=== PATIENT | female | born 1940 | race Caucasian/White ===

== ENCOUNTER 2018-04-05 17:24 | Inpatient (IN) | payer MEDICARE, BC ==
[2018-04-05 18:16] LABS: Hemoglobin 14.2 g/dL (12.0-16.0); Mean Corpuscular HGB CONC 32.4 g/dL (32.0-36.0); Mean Corpuscular Hemoglobin 29.3 pg (27.0-31.0); Mean Corpuscular Volume 90.5 fL (78.0-98.0); RBC Distribution Width 13.9 % (11.5-14.5); Red Blood Cell (RBC) Count 4.84 mill/uL (4.20-5.40); White Blood Cell (WBC) Count 10.6 thou/uL (4.8-10.8)
[2018-04-05 18:35] LABS: ALT (SGPT) 30 U/L (8-55); AST (SGOT) 34 U/L (5-34); Albumin 4.3 g/dL (3.4-4.8); Alkaline Phosphatase 56 U/L (40-150); Anion Gap 18 mmol/L (10-20); BUN (Urea Nitrogen) 12 mg/dL (9.8-20.1); Bilirubin, Total 0.4 mg/dL (0.2-1.2); Calc. Creatinine Clearance 0 mL/min (70-130); Carbon Dioxide 25 mmol/L (23-31); Chloride 100 mmol/L (98-107); Estimated GFR-MDRD 54; Globulin 3.2 g/dL (2.4-3.5); Glucose 87 mg/dL (83-110); Potassium 3.9 mmol/L (3.5-5.1); Protein, Total 7.5 g/dL (6.0-8.3); Sodium 139 mmol/L (136-145)
[2018-04-05 18:36] LABS: #Basophils 0.1 thou/uL (0.0-0.2); #Eosinphils 0.3 thou/uL (0.0-0.7); #Lymphocytes 3.4 thou/uL (1.20-3.40); #Neutrophils 5.7 thou/uL (1.40-6.50); %Basophils 0.8 % (0.0-1.0); %Eosinophils 2.9 % (0.0-10.0); %Lymphocytes 32.2 % (21.0-51.0); %Monocytes 9.8 % (0.0-10.0); %Neutrophils 54.2 % (42.0-75.0); Large Platelets SLIGHT; MDiff Complete? YES; Mean Platelet Volume 11.7 fL (7.4-10.4); Platelet Count 134 thou/uL (130-400); Platelet Morphology Comment Appears Adequate
[2018-04-05 18:57] LABS: Prothrombin Time 13.7 SEC (12.0-14.7)
[2018-04-05 18:58] LABS: PTT 30.7 SEC (22.9-36.1)
--- NOTE | 2018-04-05 19:40 | CT ---
CT HEAD NONCONTRAST: 04/05/18 HISTORY: Fall. Head injury. FINDINGS: Small amount of hyperdense fluid is present within the left frontal subarachnoid sulci and at the lydia or of each frontal fossa. Minimal hyperdense fluid at the anterior interhemispheric fissure. Mild chronic ischemic small vessel disease and diffuse cortical atrophy. Nondisplaced sagittally orie nted fracture of right occipital bone extends to the base of the occipital condyle. IMPRESSION: Small amount of left frontal subarachnoid hemorrhage consistent with contrecoup injury related to fal ling and hitting the back of the head. A nondisplaced sagittally oriented occipital fracture is prese nt. Findings were called to Dr. Olsen in the Emergency Department at 1815 hours. Code CR POS: BST
--- NOTE | 2018-04-05 19:47 | CT ---
CT CERVICAL SPINE NONCONTRAST: 04/05/18 HISTORY: Fall. Neck injury. FINDINGS: Vertebral body heights are maintained. Prominent osteophytosis. Multilevel disc space narrowing and p artial disc calcification. Minimal degenerative spondylolisthesis at the C4-5 level. No acute fractur e or dislocation. Sagittally oriented right occipital bone fracture is partially visualized. It extends to the right oc cipital condyle. IMPRESSION: Degenerative changes of the cervical spine. No acute osseous abnormalities are demonstrated. POS: BST
--- NOTE | 2018-04-05 19:48 | RAD ---
CHEST ONE VIEW: 04/05/18 HISTORY: Fall. Chest injury FINDINGS: The cardiac silhouette is magnified by projection. Pulmonary vasculature is unremarkable. Mediastinum is midline with aortic calcification and dorsal column stimulator of the thoracic spine. No lobar co nsolidation or evidence of pneumothorax. IMPRESSION: 1. Atherosclerosis. 2. No active cardiopulmonary abnormalities are otherwise demonstrated. POS: BST
--- NOTE | 2018-04-05 19:50 | RAD ---
AP PELVIS ONE VIEW: 04/05/18 HISTORY: Fall. Pelvic injury. FINDINGS: Sacral ala are intact. Cortical remodeling of the lateral aspect of the right superior pubic ramus an d the left pubic ramus suggests an old healed right pelvic injury. Degenerative changes of each hip. No acute fracture or dislocation. Dorsal column stimulator pack overlies the left lower quadrant. IMPRESSION: Degenerative and old posttraumatic changes. No acute osseous abnormalities are demonstrated. POS: BST
[2018-04-05] MEDS ORDERED: Ondansetron PF 4 MG/2 ML Vial ONE ×3 (19:51→21:21)
[2018-04-05] MEDS ORDERED: Ondansetron PF 4 MG/2 ML Vial IVP PRN (20:25)
[2018-04-05] MEDS ORDERED: Dextrose 5% in Water 1,000 ML IV PRN (20:25)
[2018-04-05] MEDS ORDERED: Dextrose 50% Abboject 50 ML SYRINGE SLOW IVP PRN (20:25)
[2018-04-05] MEDS ORDERED: Acetaminophen 500 MG TAB PO SCH (20:30)
[2018-04-05] MEDS ORDERED: hydrALAZINE 20 MG/ML VIAL SLOW IVP PRN ×2 (20:32→21:33)
[2018-04-05] MEDS ORDERED: Acetaminophen 500 MG TAB ONE ×2 (20:37→20:43)
[2018-04-05] MEDS ORDERED: Lactated Ringer's 1,000 ML IV SCH (20:45)
[2018-04-05] MEDS ORDERED: HYDROmorphone 0.5 MG/0.5 ML SYRINGE ONE (21:22)
--- NOTE | 2018-04-05 22:24 | CT ---
CT LUMBAR SPINE NONCONTRAST: 04/05/18 HISTORY: Low back pain. Recent fall. Injury. FINDINGS: Vertebral body heights are maintained. There is prominent leftward convexed rotatory scoliotic curvat ure. AP alignment is within normal limits. Prominent osteophytosis throughout the vertebral bodies an d facets. Posterior disc bulges are most pronounced at the L2-3, L3-4, and L4-5 levels where there is also gas disc phenomenon. Central canal stenosis is most severe at the L4-5 level. Severe bilateral foraminal stenoses throughout the lumbar spine. Dorsal column stimulator partially visualized. There is calcification in the arterial structures. IMPRESSION: 1. Prominent degenerative changes of the lumbar spine. No acute osseous abnormalities. 2. Atherosclerosis. POS: BST
--- NOTE | 2018-04-05 22:26 | CT ---
CT THORACIC SPINE NONCONTRAST: 04/05/18 HISTORY: Fall. Back pain. FINDINGS: Vertebral body heights and alignment are maintained. Osteophytosis is present throughout the vertebra l bodies and facets. Mild rightward convexed curvature. Multilevel disc space narrowing and partial c alcification. No acute fracture or dislocation are apparent. Dorsal column stimulator is partially vi sualized. There is calcification in the arterial structures. IMPRESSION: Degenerative changes of the thoracic spine. No evidence of compression fracture. Atherosclerosis. POS: BST
--- NOTE | 2018-04-05 22:39 | HP ---
REFERRING PHYSICIAN: Oseas Olsen DO TRAUMA ATTENDING: Ruslan Murry MD PRIMARY CARE PHYSICIAN: Ronny Alas MD PAIN MANAGEMENT: . TRANSITIONAL CARE MANAGER: Wilfredo Upton MD POWDER CUTTING OPERATOR: Jhonathan Luque MD REASON FOR ADMISSION: Subarachnoid hemorrhage following a fall. HISTORY OF PRESENT ILLNESS: Ms. Jones is a 77-year-old female with past medical history of ITP, chronic pain, COPD, not on home oxygen, hypertension, depression, previous uterine cancer, who is asplenic, presented to the emergency department today after dancing at her assisted living facility, falling backwards, striking the occiput of her head. CT head demonstrates a contrecoup injury with frontal subarachnoid blood noted and an occipital fracture. The patient at this time is GCS of 15, was reported to be GCS of 14 initially. She does not remember the fall. She complains of a headache and generalized nausea. Headache is frontal in nature. She has no visual changes. She denies any chest pain, shortness of breath, abdominal pain, pelvic pain, rib pain, or any other symptoms aside from the headache and nausea. In the emergency department, the patient has been evaluated. Neurosurgery has seen the patient and placed recommendations. She is going to be admitted to the [facility]. We were called to admit the patient to the hospital. The patient now has a CT of C-spine that was negative. The chest x-ray that was ultimately negative. Pelvis x-ray that was negative. She is pending a CT T-spine and L-spine films. I have evaluated Ms. Jones at the bedside. Her son is also available. She is alert and oriented to person, place, time, and event. GCS is 15. She moves all extremities. She just complains of a headache and nausea. REVIEW OF SYSTEMS: Pertinent positives and negatives as per HPI, otherwise is regarded as negative. PAST MEDICAL HISTORY: 1. ITP. 2. Chronic pain. 3. COPD. 4. Hypertension. 5. Depression. 6. Uterine cancer, status post radical hysterectomy and radiation. PAST SURGICAL HISTORY: 1. L4-L5 nerve stimulator placed recently. 2. 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 3. Bilateral carpal tunnel releases. 4. Bowel resection x3 following appendectomy many years ago. 5. Radical hysterectomy. MEDICATIONS: They are not available at the bedside nor in the computer. I understand that she takes albuterol, Cymbalta and lisinopril. The remainder needs to be completed in the MAR. SOCIAL HISTORY: The patient is currently . 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 She quit smoking in June 2013 and former social drinker. No other illicit drug use. She currently lives in assisted living and has adult children in the area. ALLERGIES: TO MORPHINE CAUSING NAUSEA, VOMITING, AND HEADACHE. FAMILY HISTORY: Noncontributory in the 77-year-old female. PHYSICAL EXAMINATION: VITAL SIGNS: Current temperature is 98.8, blood pressure is 154/64, heart rate is 95. She is 94% on 2 L of oxygen via nasal cannula and breathing 20 times per minute. GENERAL: This is a 77-year-old female sitting at 30 degrees and in slight distress secondary to pain, but is nontoxic appearing. HEENT: Normocephalic, atraumatic. I see no wounds. Small hematoma possible to the occiput, no step-offs or deformities are noted. She has no hemotympanum bilaterally. No blood in the nares. No missing teeth. She has dry mucous membranes. Trachea is midline. No JVD. RESPIRATORY: Equal rise and fall bilateral. Breath sounds clear to auscultation in upper and lower bilaterally. CARDIOVASCULAR: Regular rate and rhythm. Does have a systolic murmur noted, grade 1-2 does not radiate on my assessment. She has no edema and strong pulses in four extremities. ABDOMEN: Soft and nontender. Pelvis is stable. MUSCULOSKELETAL: She is able to move her extremities. NEUROLOGIC: Alert and oriented to person, place, time, and event. GCS is 15. She moves all of her extremities well. Pupils are equal, round, and reactive to light. Denies any visual disturbances, but does report a headache. SKIN: Cobre, warm, and dry. PSYCHIATRIC: Normal mood and affect. DIAGNOSTIC DATA: Today, a CT head, noncontrast demonstrates a left frontal subarachnoid hemorrhage and a nondisplaced sagittally oriented occipital fracture. Chest x-ray is negative. Cervical spine CT is negative other than chronic changes. Pelvis x-ray is negative. An EKG that shows a sinus rhythm, but has artifact limiting interpretation secondary to nerve stimulator. LABORATORY DATA: From today, white blood cell count is 10.6, platelets are 134. Hemoglobin and hematocrit 14.2 and 43.8 respectively. PT is 13.7 seconds, INR is 1.0, APTT is 30.7, sodium is 139, potassium is 3.9, chloride is 100, CO2 is 25, anion gap is 18, BUN is 12, creatinine 1.0, glucose is 87 and lactate is 1.1. Total bilirubin 0.4. AST, ALT 34 and 30 respectively, alkaline phosphatase is 56. Initial troponins less than 0.01. Total protein 7.5. ASSESSMENT AND PLAN: 1. Mechanical fall leading to a nondisplaced occipital fracture. 2. Subarachnoid hemorrhage. 3. Acute traumatic pain. 4. History of chronic obstructive pulmonary disease. 5. Idiopathic thrombocytopenic purpura. 6. Hypertension. 7. Depression. PLAN: 1. We will admit the patient to the IMCU for close monitoring. 2. Neuro checks per Neurosurgery recommendation. 3. CT L-spine and T-spine are pending. Follow up on the same. 4. Repeat CT head at 5 o'clock. 5. Additional pain control now, Tylenol did not touch the pain, allergic to morphine, can't take NSAIDs, therefore, 0.2 mg Dilaudid given along with an additional 4 mg of Zofran now. 6. Blood pressure is slightly elevated, likely secondary to subarachnoid hemorrhage versus pain. If it remains elevated over 140 despite pain management, we will provide p.r.n. antihypertensives to goal of a systolic less than 140. 7. DuoNebs as needed every 4 hours. 8. Oxygen as needed to maintain SpO2 greater than 92%, not requiring home oxygen at home. 9. We will continue with Tylenol and additional tramadol for pain medicine, trying to limit narcotics if possible. 10. Diet will be n.p.o. except for medications, sips and chips tonight. 11. Activity is up to the bedside commode per Neurosurgery recommendations, head of bed at 30 degrees as long as L-spine, T-spine are negative. 12. Full code. 13. Access of peripheral IVs. 14. Prophylaxis will be famotidine and SCDs. 15. Disposition is [facility]. We will re-evaluate in the morning. I have coordinated care with the emergency department team, plan can be updated as needed. Job ID: [id number]
[2018-04-06] MEDS ORDERED: Famotidine 20 MG TAB ONE ×2 (00:01→10:26)
--- NOTE | 2018-04-06 02:10 | CON ---
DATE OF CONSULTATION: ATTENDING PHYSICIAN: Hubert Jeong MD HISTORY OF PRESENT ILLNESS: The patient is a 77-year-old female with a past medical history of ITP thrombocytopenia, hypertension, hyperlipidemia, COPD, who presented to the emergency department per EMS after a mechanical fall. The patient reports she was dancing in the assisted living when she lost her footing and fell backwards hitting the back of her head. She has little memory of this event. Since the event, she has had significant headache and several episodes of vomiting. She was evaluated with CT head on arrival to the emergency department and found to have a nondisplaced occipital fracture as well as a left frontal small area of traumatic subarachnoid hemorrhage consistent with contrecoup injury. C-spine CT was negative for acute changes. She also had a chest x-ray and a pelvis x-ray, which were also negative for any acute changes. I am visiting the patient at the bedside. She is awake and alert, oriented x4. GCS of 15. No focal neurologic deficits are present. She does have significant headache and nausea. Her platelet count is 134 and her coags are normal. PAST MEDICAL HISTORY: ITP thrombocytopenia, hypertension, hyperlipidemia, and COPD. PAST SURGICAL HISTORY: Appendectomy and bowel resection. SOCIAL HISTORY: The patient does not smoke, drink, or use any drugs. ALLERGIES: SHE IS ALLERGIC TO MORPHINE. REVIEW OF SYSTEMS: Per HPI. PHYSICAL EXAMINATION: VITAL SIGNS: BP is 125/45, respiration rate is 16. She is 94% on room air. Pulse is 88. She has temperature of 98.8. CONSTITUTIONAL: She is uncomfortable, but awake, alert, and oriented x4. GCS 15. HEAD: She has some soft tissue swelling over the occipital region. No laceration is present. EYES: PERRLA. Extraocular movements intact. ENT: Oral mucous is pink, intact, and moist. She has normal voice. NECK: Nontender to palpation. Free active range of motion. No meningismus or nuchal rigidity. RESPIRATORY: Symmetric chest expansion. No evidence of dyspnea. CARDIOVASCULAR: Regular rate and rhythm. MUSCULOSKELETAL: Free active range of motion of all extremities. No focal motor weakness or reflex asymmetry. BACK: She has pain with any movement of the back and tender diffusely over the thoracic-lumbar spine. NEURO: A and O x4. GCS 15. No focal neurologic deficits are appreciated. ASSESSMENT AND PLAN: This is a 77-year-old female status post mechanical fall, who was found on CT head to have a nondisplaced occipital fracture as well as small area of left frontal traumatic subarachnoid hemorrhage, consistent with contrecoup injury. She does have a history of ITP, but currently her platelets and coags are normal. She is neurologically intact, but is complaining of significant back pain, so I will add a noncontrast CT of the thoracic and lumbar spine and follow up these results. I have discussed her case with the Trauma Service and they will admit to the [facility] where patient can be monitored closely with frequent neuro checks. Head of the bed will be elevated to 30 degrees and we will continue to work on pain control, nausea, and mobilize and advance for diet appropriately. We will plan to repeat a.m. CT in the morning. I have discussed this plan with Dr. Jeong who is in agreement. Job ID: [id number]
[2018-04-06 04:33] LABS: Anion Gap 17 mmol/L (10-20); BUN (Urea Nitrogen) 9 mg/dL (9.8-20.1); Calc. Creatinine Clearance 0 mL/min (70-130); Calcium 10.2 mg/dL (7.8-10.44); Carbon Dioxide 24 mmol/L (23-31); Chloride 103 mmol/L (98-107); Estimated GFR-MDRD 62; Glucose 103 mg/dL (83-110); Magnesium 2.6 mg/dL (1.6-2.6); Potassium 4.6 mmol/L (3.5-5.1); Sodium 139 mmol/L (136-145)
[2018-04-06] MEDS ORDERED: Ondansetron PF 4 MG/2 ML Vial ONE ×4 (04:45→13:26)
[2018-04-06 04:59] LABS: #Basophils 0.1 thou/uL (0.0-0.2); #Lymphocytes 1.4 thou/uL (1.20-3.40); #Monocytes 0.6 thou/uL (0.11-0.59); #Neutrophils 10.4 thou/uL (1.40-6.50); %Basophils 0.6 % (0.0-1.0); %Eosinophils 0.4 % (0.0-10.0); %Lymphocytes 11.3 % (21.0-51.0); %Monocytes 4.5 % (0.0-10.0); %Neutrophils 83.3 % (42.0-75.0); Hemoglobin 15.1 g/dL (12.0-16.0); Mean Corpuscular HGB CONC 32.7 g/dL (32.0-36.0); Mean Corpuscular Hemoglobin 30.8 pg (27.0-31.0); Mean Corpuscular Volume 93.9 fL (78.0-98.0); Mean Platelet Volume 12.1 fL (7.4-10.4); Platelet Count 112 thou/uL (130-400); Platelet Morphology Comment Appears Decreased; RBC Distribution Width 13.7 % (11.5-14.5); Red Blood Cell (RBC) Count 4.92 mill/uL (4.20-5.40); White Blood Cell (WBC) Count 12.5 thou/uL (4.8-10.8)
[2018-04-06] MEDS ORDERED: Acetaminophen 1,000 MG in Premix Bag 1 BAG IVPB SCH (05:30)
--- NOTE | 2018-04-06 08:25 | CT ---
PRELIMINARY REPORT/[facility]/EMERGENTY AFTER-HOURS PROCEDURE CT Head Without Contrast EXAM DATE/TIME: 04/06/2018 4:56 AM CLINICAL HISTORY: 77 years old, female; Condition or disease; Other: L frontal tsah, occipital FX; Patient HX: Follow u p. S/P fall. L frontal tsah, occipital FX. F77 [place]. Patient reports pain to the back of her pain. Patient reports associated nausea. [employer] employee reports that patient wa s dancing and fell back onto her head. [employer] employee denies patient complaining of dizziness, lighthead edness, or other conditions prior to fall. TECHNIQUE: Axial computed tomography images of the head/brain without contrast. COMPARISON: CT Brain WO Con 04/05/2018 6:11 PM FINDINGS: Brain: Stable appearance of focal left frontotemporal extra-axial hemorrhage. Volume loss and chronic small vessel ischemic change. Midline shift: No midline shift. Ventricles: Normal. No ventriculomegaly. Bones/joints: Stable nondisplaced acute right occipital skull fracture. Sinuses: Normal as visualized. No acute sinusitis. Mastoid air cells: Normal as visualized. No mastoid effusion. Soft tissues: Normal. IMPRESSION: 1. Stable appearance of focal left frontotemporal extra-axial hemorrhage. 2. Stable nondisplaced acute right occipital skull fracture. Thank you for allowing us to participate in the care of your patient. Dictated and Authenticated by: Alfonso Alarcon MD 04/06/2018 5:28 AM Central Time ([place] & [place]) FINAL REPORT HEAD CT WITHOUT CONTRAST: Date: 04/06/18 COMPARISON: 04/05/18. HISTORY: Post-traumatic subarachnoid hemorrhage. Fracture. Follow-up exam. FINDINGS: This report is in agreement with the preliminary report by [place]. Redemonstration of intracranial hemo rrhage, unchanged. Stable nondisplaced right occipital calvarial fracture. POS: [facility]
[2018-04-06] MEDS: Scopolamine 1.5 mg/72 hour Patch TD SCH (09:57)
[2018-04-06] MEDS ORDERED: Lisinopril 10 MG TAB ONE (10:24)
[2018-04-06] MEDS ORDERED: Famotidine/PF 20 mg/2ml Vial ONE (10:24)
[2018-04-06] MEDS ORDERED: traMADol HCl 50 MG TAB ONE ×2 (10:24→12:10)
[2018-04-06] MEDS: Famotidine 20 MG TAB PO SCH ×3 (11:07→20:05)
--- NOTE | 2018-04-06 14:25 | CON ---
DATE OF CONSULTATION: 04/06/2018 HISTORY: The patient was seen and examined. I agree with Annel Tidwell's evaluation on 04/05/2018. The patient is a 77-year-old woman, who had a fall, striking the back of her right head. She is complaining of nausea, vomiting, and vertigo as well as headache. She is neurologically intact. CT of the head reveals a right occipital skull fracture extending into the skull base without displacement. She has trace traumatic left frontal subarachnoid hemorrhage, which is stable on followup CT. Imaging of the entire spine is negative for acute findings. IMPRESSION AND PLAN: The patient has a mild closed head injury with skull fracture and a trace amount of traumatic subarachnoid hemorrhage. This requires no intervention and no specific followup is required. I expect her to be symptomatic for several weeks and we discussed the nature of the symptoms. She may require inpatient management for the symptomatic treatment and this has been discussed with the patient, her daughter, and the trauma team. Job ID: [id number]
[2018-04-06] MEDS: Acetaminophen 1,000 MG in Premix Bag 1 BAG IVPB SCH ×3 (18:18→23:11)
[2018-04-06] MEDS: traMADol HCl 50 MG TAB PO PRN ×2 (18:25→23:12)
[2018-04-06 18:39] VITALS: BMI 29.0
[2018-04-06] MEDS: fentaNYL 50 mcg/hour Patch TD SCH (18:44)
--- NOTE | 2018-04-06 19:51 | PRG ---
DATE OF SERVICE: 04/06/2018 SUBJECTIVE: The patient remains in the emergency department due to bed availability in the [facility]. She did well overnight. She had a repeat head CT this morning, that showed stable subarachnoid hemorrhage and no changes to her occipital skull fracture. The patient's pain is controlled. We will start her on diet this morning. The patient was evaluated this morning at around [address] Angeles, and was then seen by Dr. Jeong. PHYSICAL EXAMINATION: VITAL SIGNS: Temperature 98.2, heart rate 80, blood pressure 146/71, respirations 20, oxygen saturations 98% on 1L via nasal cannula. GENERAL: The patient is resting comfortably in bed. She is awake, alert, and oriented x3. Jordan Coma Scale is 15. HEENT: Head shows contusion in the occiput, otherwise unremarkable. Eyes; extraocular motions intact. PERRLA bilaterally. Ears are atraumatic without discharge. Nose atraumatic without discharge. Oropharynx is clear. NECK: Nontender to the midline. The patient does have some right-sided paraspinous tenderness to palpation. LUNGS: Clear to auscultation with good inspiratory and expiratory effort. HEART: Regular rate and rhythm. ABDOMEN: Soft, flat, nontender with active bowel sounds. EXTREMITIES: Neurovascularly intact x4. LABORATORY FINDINGS: White blood cell count 12.5, hemoglobin 15.1, hematocrit 46.2, and platelets 112. Sodium 139, potassium 4.6, chloride 103, CO2 of 24, BUN 9, creatinine 0.88, glucose 103. Magnesium 2.6. Phosphorus 5.0. RADIOGRAPHIC REPORT: CT of the brain without contrast shows a stable appearance of a focal left frontotemporal extra-axial hemorrhage and stable nondisplaced acute right occipital skull fracture. ASSESSMENT AND PLAN: 1. Status post fall. 2. Subarachnoid hemorrhage. 3. Right occipital skull fracture. Plan will be to continue supportive care and pain management and we will have Case Management discuss placement with the patient. She does live independently at home, but may require a short stay in rehab or a custodial facility. From the neurosurgical standpoint, the patient is cleared for discharge. Job ID: [id number]
[2018-04-06] MEDS: Pregabalin 50 MG CAP PO SCH (20:06)
[2018-04-06] MEDS: Temazepam 15 MG CAP PO SCH (20:06)
[2018-04-06] MEDS: Calcium Carbonate + Vit D 1 TAB PO SCH (20:06)
[2018-04-06] MEDS: SUMAtriptan Succinate 50 MG TAB PO PRN (23:12)
[2018-04-07] MEDS: Ondansetron ODT 4 MG TAB PO PRN ×3 (04:34→16:41)
[2018-04-07] MEDS: traMADol HCl 50 MG TAB PO PRN ×3 (04:34→16:41)
[2018-04-07] MEDS: DULoxetine 60 MG CAP PO SCH (08:26)
[2018-04-07] MEDS: Pregabalin 50 MG CAP PO SCH ×3 (08:26→21:48)
[2018-04-07] MEDS: DULoxetine 30 MG CAP PO SCH (08:26)
[2018-04-07] MEDS: Potassium Chloride 20 MEQ TAB PO SCH (08:26)
[2018-04-07] MEDS: Lisinopril 20 MG TAB PO SCH (08:27)
[2018-04-07] MEDS: Lidocaine 5% Patch TD SCH (08:27)
[2018-04-07] MEDS: Ascorbic Acid 500 mg Chewable Tablet PO SCH (08:59)
[2018-04-07] MEDS: Folic Acid 1 MG TAB PO SCH (08:59)
[2018-04-07] MEDS: Calcium Carbonate + Vit D 1 TAB PO SCH ×3 (08:59→21:47)
[2018-04-07] MEDS: Famotidine 20 MG TAB PO SCH ×2 (08:59→21:47)
[2018-04-07] MEDS: Multivit, Therapeutic 1 TAB PO SCH (09:00)
[2018-04-07] MEDS: Torsemide 20 MG TAB PO SCH (09:00)
[2018-04-07] MEDS: SUMAtriptan Succinate 50 MG TAB PO PRN (09:44)
--- NOTE | 2018-04-07 14:53 | PRG ---
DATE OF SERVICE: 04/07/2018 SUBJECTIVE: The patient is hospital day #2, status post ground level fall in which she sustained a subarachnoid hemorrhage in a right occipital skull fracture. The patient is currently on the surgical floor. She did well overnight. Note, this morning when she attempted to work with physical therapy, her dizziness had increased once again making it difficult for her to work with them. She states that she has had some relief with the scopolamine patch, but it has not completely resolved her dizziness. The patient is tolerating a diet this morning and her pain is controlled. PHYSICAL EXAMINATION: VITAL SIGNS: Temperature is 97.7, heart rate 74, blood pressure 156/63, respirations 18, oxygen saturation is 98% on 2 L via nasal cannula. GENERAL: The patient is resting comfortably in bed. She states that ice pack to the side of her head is also helping with her headache. She is awake, conversant, appropriate. Alice Coma Scale is 14, -1 for eye opening. HEENT: Unchanged. LUNGS: Clear to auscultation with good inspiratory and expiratory effort. HEART: Regular rate and rhythm. ABDOMEN: Soft, flat, nontender with active bowel sounds.\ EXTREMITIES: Neurovascularly intact x4. LABORATORY DATA: There are no labs or radiographs to review this morning. ASSESSMENT: 1. Status post ground level fall. 2. Subarachnoid hemorrhage, resolving. 3. Right occipital skull fracture, stable. PLAN: Plan will be to continue supportive care and await placement decision. The patient had declined going to [facility], so we will explore other options. From a Trauma and Neurosurgical standpoint, the patient is stable for transfer to skilled facility or swing bed. Job ID: [id number]
[2018-04-07] MEDS: Temazepam 15 MG CAP PO SCH (21:49)
[2018-04-08] MEDS: Ondansetron ODT 4 MG TAB PO PRN ×3 (01:12→15:03)
[2018-04-08] MEDS: traMADol HCl 50 MG TAB PO PRN ×3 (01:12→15:03)
[2018-04-08] MEDS: Potassium Chloride 20 MEQ TAB PO SCH (08:27)
[2018-04-08] MEDS: Multivit, Therapeutic 1 TAB PO SCH (08:27)
[2018-04-08] MEDS: DULoxetine 60 MG CAP PO SCH (08:28)
[2018-04-08] MEDS: Lisinopril 20 MG TAB PO SCH (08:28)
[2018-04-08] MEDS: Ascorbic Acid 500 mg Chewable Tablet PO SCH (08:28)
[2018-04-08] MEDS: Calcium Carbonate + Vit D 1 TAB PO SCH ×3 (08:28→20:36)
[2018-04-08] MEDS: DULoxetine 30 MG CAP PO SCH (08:28)
[2018-04-08] MEDS: Famotidine 20 MG TAB PO SCH ×2 (08:28→20:36)
[2018-04-08] MEDS: Folic Acid 1 MG TAB PO SCH (08:29)
[2018-04-08] MEDS: Lidocaine 5% Patch TD SCH (08:29)
[2018-04-08] MEDS: Torsemide 20 MG TAB PO SCH (08:30)
[2018-04-08] MEDS: Pregabalin 50 MG CAP PO SCH ×3 (08:31→20:35)
[2018-04-08] MEDS ORDERED: Polyethylene Glycol 3350 17 GM Packet PO SCH (13:15)
--- NOTE | 2018-04-08 16:54 | PRG ---
DATE OF SERVICE: 04/08/2018 SUBJECTIVE: The patient remains on the surgical floor. She is hospital day 3, status post ground level fall when she sustained a subarachnoid hemorrhage and a right occipital skull fracture. Yesterday, the patient had some significant vertigo symptoms that overnight with combination of scopolamine, rest and time, have significantly improved. This morning, as a matter of fact, she is up and able to tolerate her breakfast and work with Physical and Occupational Therapy. OBJECTIVE: VITAL SIGNS: Temperature 98.1, heart rate 64, blood pressure 145/75, respirations 18, oxygen saturation 99% on room air. GENERAL: The patient is resting comfortably, sitting up in a chair at bedside, having breakfast. She is awake, alert, and oriented x3. Alice Coma Scale is 15. HEENT: Unchanged. LUNGS: Clear to auscultation with good inspiratory and expiratory effort. HEART: Regular rate and rhythm. ABDOMEN: Soft, flat, nontender with active bowel sounds. EXTREMITIES: Neurovascularly intact x4. Capillary refill is less than 3 seconds. LABORATORY DATA: There are no labs or radiographs for review this morning. ASSESSMENT: 1. Status post ground level fall. 2. Subarachnoid hemorrhage, resolving/stable. 3. Right occipital skull fracture, stable. PLAN: Plan will be to continue supportive care, physical and occupational therapy and await placement decision. The patient and her daughter discussed home with Home Health, if possible. Again, we will have the Case Management work with them to get her to the appropriate facility hopefully tomorrow. Job ID: [id number]
[2018-04-08] MEDS: Temazepam 15 MG CAP PO SCH (20:36)
[2018-04-09] MEDS: Torsemide 20 MG TAB PO SCH (08:24)
[2018-04-09] MEDS: Scopolamine 1.5 mg/72 hour Patch TD SCH (08:24)
[2018-04-09] MEDS: Lidocaine 5% Patch TD SCH (08:24)
[2018-04-09] MEDS: Polyethylene Glycol 3350 17 GM Packet PO SCH (08:24)
[2018-04-09] MEDS: Ascorbic Acid 500 mg Chewable Tablet PO SCH (08:25)
[2018-04-09] MEDS: DULoxetine 30 MG CAP PO SCH (08:25)
[2018-04-09] MEDS: Potassium Chloride 20 MEQ TAB PO SCH (08:25)
[2018-04-09] MEDS: Folic Acid 1 MG TAB PO SCH (08:26)
[2018-04-09] MEDS: Lisinopril 20 MG TAB PO SCH (08:26)
[2018-04-09] MEDS: DULoxetine 60 MG CAP PO SCH (08:26)
[2018-04-09] MEDS: Famotidine 20 MG TAB PO SCH ×2 (08:27→20:19)
[2018-04-09] MEDS: Calcium Carbonate + Vit D 1 TAB PO SCH ×3 (08:27→20:19)
[2018-04-09] MEDS: Multivit, Therapeutic 1 TAB PO SCH (08:27)
[2018-04-09] MEDS: Pregabalin 50 MG CAP PO SCH ×3 (08:31→20:20)
[2018-04-09] MEDS ORDERED: fentaNYL 50 mcg/hour Patch TD SCH (09:00)
[2018-04-09] MEDS: SUMAtriptan Succinate 50 MG TAB PO PRN (11:06)
[2018-04-09] MEDS: traMADol HCl 50 MG TAB PO PRN ×2 (11:06→17:24)
[2018-04-09] MEDS: fentaNYL 50 mcg/hour Patch TD SCH (17:31)
--- NOTE | 2018-04-09 18:16 | PRG ---
DATE OF SERVICE: 04/09/2018 SUBJECTIVE: The patient was seen this a.m., sitting up in bed. She is status post a fall from standing with occipital fracture and subarachnoid hemorrhage. No signs of vertigo. The patient denies any nausea or dizziness after the scopolamine patch was started 2 days ago. She was eating breakfast this morning when we saw her and reported tolerating that well. Reports pain is well controlled. OBJECTIVE: VITAL SIGNS: Temperature is 97.3, pulse 73, respirations 18, oxygen saturation is 94% on room air, and blood pressure 122/68. GENERAL: The patient is sitting up in bed. Appears comfortable. No acute signs of distress. NEUROLOGIC: GCS is 15. Alert and oriented x3, which is her baseline, gross motor and sensation intact. PULMONARY: No signs of acute distress, equal chest rise and fall. Lung singh clear bilaterally. HEART: Regular rate and rhythm. No murmurs, gallops, or rubs. GI: Abdomen is soft, nontender, nondistended. Positive bowel sounds. EXTREMITIES: Motor and sensation intact bilaterally. 2+ pulses in all extremities. No swelling noted. LABORATORY FINDINGS: There are no lab findings to report. DIAGNOSTIC FINDINGS: There are no diagnostic findings to report. ASSESSMENT: 1. Status post fall from standing. 2. Occipital fracture. 3. Subarachnoid hemorrhage. 4. Concussive symptoms. PLAN: We will continue supportive care and physical therapy. The patient agreed to be placed in a rehab facility today. We are pending approval at this time. We will continue medications and diet as previously prescribed. Job ID: [id number] [facility]
[2018-04-09] MEDS: Temazepam 15 MG CAP PO SCH (20:19)
[2018-04-10] MEDS: Lidocaine 5% Patch TD SCH (09:18)
[2018-04-10] MEDS: Calcium Carbonate + Vit D 1 TAB PO SCH ×3 (09:18→20:14)
[2018-04-10] MEDS: DULoxetine 60 MG CAP PO SCH (09:18)
[2018-04-10] MEDS: Polyethylene Glycol 3350 17 GM Packet PO SCH (09:18)
[2018-04-10] MEDS: DULoxetine 30 MG CAP PO SCH (09:19)
[2018-04-10] MEDS: Famotidine 20 MG TAB PO SCH ×2 (09:19→20:15)
[2018-04-10] MEDS: Ascorbic Acid 500 mg Chewable Tablet PO SCH (09:19)
[2018-04-10] MEDS: Torsemide 20 MG TAB PO SCH (09:19)
[2018-04-10] MEDS: Lisinopril 20 MG TAB PO SCH (09:20)
[2018-04-10] MEDS: Potassium Chloride 20 MEQ TAB PO SCH (09:20)
[2018-04-10] MEDS: Folic Acid 1 MG TAB PO SCH (09:20)
[2018-04-10] MEDS: Multivit, Therapeutic 1 TAB PO SCH (09:20)
[2018-04-10] MEDS: Pregabalin 50 MG CAP PO SCH ×3 (09:21→20:14)
[2018-04-10] MEDS ORDERED: Bisacodyl 10 MG SUPP PR PRN (10:35)
[2018-04-10] MEDS: traMADol HCl 50 MG TAB PO PRN ×2 (11:32→20:14)
--- NOTE | 2018-04-10 12:28 | PRG ---
DATE OF SERVICE: 04/10/2018 SUBJECTIVE: The patient is status post fall from standing with loss of consciousness and occipital fracture, subarachnoid hemorrhage with improving concussive symptoms. The patient was seen this morning with the Trauma Team, sitting up at the edge of bed, working with physical therapy. The patient reported her pain was well controlled and she was tolerating her diet. Did request stool softeners and a suppository. Not having any difficulty urinating. Tolerating her regular diet. Has agreed to pursue inpatient rehab placement. She is working with Case Management. OBJECTIVE: VITAL SIGNS: Temperature 98.3, pulse 78, respirations 22, oxygen 97% on room air, blood pressure 126/62. GENERAL: The patient is sitting upright at the edge of bed with minimal assistance. Appears comfortable. No acute signs of distress. NEUROLOGIC: GCS is 15. Alert and oriented x3. Gross motor and sensation are intact. PULMONARY: No signs of acute distress, equal chest rise and fall, lung singh clear bilaterally. HEART: Regular rate and rhythm. No murmurs, gallops, or rubs. GI: Abdomen is soft, nontender, nondistended. Positive bowel sounds. EXTREMITIES: Motor and sensation are intact. 2+ pulses in all extremities. No swelling noted. LABORATORY STUDIES: There are no laboratory studies to report. DIAGNOSTIC STUDIES: There are no diagnostic studies to report. ASSESSMENT: 1. Status post fall from standing. 2. Occipital fracture. 3. Subarachnoid hemorrhage. 4. Concussive symptoms. PLAN: We will continue to give the patient supportive care and physical therapy. The patient has agreed to be placed in a rehab facility. manager lsw is working with the patient to have the patient place. We are pending approval at this time. We will continue medications and diet as previously prescribed. In addition, we will start Colace and senna as well as order a p.r.n. suppository per patient request. The patient was seen and discussed with Dr. Mcgregor. Job ID: [id number]
[2018-04-10] MEDS: SUMAtriptan Succinate 50 MG TAB PO PRN (16:54)
[2018-04-10] MEDS: Ondansetron ODT 4 MG TAB PO PRN (20:14)
[2018-04-10] MEDS: Temazepam 15 MG CAP PO SCH (20:15)
[2018-04-10] MEDS: Senokot S 8.6-50 MG TAB PO SCH (20:15)
[2018-04-11] MEDS: traMADol HCl 50 MG TAB PO PRN ×3 (08:33→21:33)
[2018-04-11] MEDS: Pregabalin 50 MG CAP PO SCH ×3 (08:34→21:33)
[2018-04-11] MEDS: DULoxetine 60 MG CAP PO SCH (08:36)
[2018-04-11] MEDS: Lisinopril 20 MG TAB PO SCH (08:36)
[2018-04-11] MEDS: Polyethylene Glycol 3350 17 GM Packet PO SCH (08:36)
[2018-04-11] MEDS: Ascorbic Acid 500 mg Chewable Tablet PO SCH (08:36)
[2018-04-11] MEDS: Multivit, Therapeutic 1 TAB PO SCH (08:36)
[2018-04-11] MEDS: DULoxetine 30 MG CAP PO SCH (08:36)
[2018-04-11] MEDS: Potassium Chloride 20 MEQ TAB PO SCH (08:37)
[2018-04-11] MEDS: Torsemide 20 MG TAB PO SCH (08:37)
[2018-04-11] MEDS: Calcium Carbonate + Vit D 1 TAB PO SCH ×3 (08:37→21:34)
[2018-04-11] MEDS: Senokot S 8.6-50 MG TAB PO SCH ×2 (08:37→21:34)
[2018-04-11] MEDS: Folic Acid 1 MG TAB PO SCH (08:37)
[2018-04-11] MEDS: Lidocaine 5% Patch TD SCH (08:39)
[2018-04-11] MEDS ORDERED: Magnesium Citrate 300 ML BOT PO SCH (10:05)
--- NOTE | 2018-04-11 13:12 | PRG ---
DATE OF SERVICE: 04/11/2018 SUBJECTIVE: The patient was seen this morning, lying in bed. She appeared alert and well. Reported pain was well controlled, and she was tolerating her diet. Has not had a bowel movement since last . Requesting additional bowel regimen. Reports working well with physical therapy. Also, states concussive type symptoms have been improving. PHYSICAL EXAMINATION: VITAL SIGNS: Temperature 97.9, pulse 98, oxygen saturation 99% on room air, respirations 18, blood pressure 129/69. GENERAL: Alert, well-appearing, lying in bed, and easily awoken. NEURO: GCS 15. Alert and oriented x3. Gross motor and sensation intact. Pupils equal, round, reactive to light. PULMONARY: No signs of acute distress, equal chest rise and fall. Lung singh are clear bilaterally. HEART: Regular rate and rhythm. No murmurs, gallops, or rubs. GI: Abdomen is soft, nontender, nondistended. Positive bowel sounds. EXTREMITIES: Gross motor and sensation intact, 2+ pulses in all extremities, no swelling noted. LABORATORY FINDINGS: There are no lab findings to report. DIAGNOSTIC FINDINGS: There are no imaging findings to report. ASSESSMENT: 1. Status post fall from standing. 2. Occipital skull fracture. 3. Subarachnoid hemorrhage. 4. Concussive symptoms. 5. History of chronic pain, chronic obstructive pulmonary disease, hypertension, depression, uterine cancer. PLAN: We will continue to give the patient supportive care and physical therapy at this time. She has agreed to be placed in a rehab facility. Rehab and insurance have accepted the patient. She is waiting for a bed at her facility. She is ready for discharge. The patient was seen and examined as well as discussed with Dr. Mcgregor this morning on a.m. rounds. The patient will be given 1 bottle of magnesium citrate today due to constipation. Job ID: [id number] MTDD
[2018-04-11] MEDS: Ondansetron ODT 4 MG TAB PO PRN (13:27)
[2018-04-11] MEDS: SUMAtriptan Succinate 50 MG TAB PO PRN (13:27)
[2018-04-11] MEDS ORDERED: Calcium Carbonate 500 MG ChewTAB PO PRN (18:54)
[2018-04-11] MEDS: Temazepam 15 MG CAP PO SCH (21:33)
[2018-04-12] MEDS: SUMAtriptan Succinate 50 MG TAB PO PRN ×2 (01:13→15:31)
[2018-04-12] MEDS: traMADol HCl 50 MG TAB PO PRN ×3 (04:43→16:08)
[2018-04-12] MEDS: Lidocaine 5% Patch TD SCH (08:44)
[2018-04-12] MEDS: Scopolamine 1.5 mg/72 hour Patch TD SCH (08:45)
[2018-04-12] MEDS: Polyethylene Glycol 3350 17 GM Packet PO SCH (08:45)
[2018-04-12] MEDS: Lisinopril 20 MG TAB PO SCH (08:47)
[2018-04-12] MEDS: Ascorbic Acid 500 mg Chewable Tablet PO SCH (08:47)
[2018-04-12] MEDS: DULoxetine 30 MG CAP PO SCH (08:48)
[2018-04-12] MEDS: DULoxetine 60 MG CAP PO SCH (08:48)
[2018-04-12] MEDS: Senokot S 8.6-50 MG TAB PO SCH (08:48)
[2018-04-12] MEDS: Calcium Carbonate + Vit D 1 TAB PO SCH ×2 (08:48→14:10)
[2018-04-12] MEDS: Pregabalin 50 MG CAP PO SCH ×2 (08:49→14:11)
[2018-04-12] MEDS: Folic Acid 1 MG TAB PO SCH (08:49)
[2018-04-12] MEDS: Potassium Chloride 20 MEQ TAB PO SCH (08:49)
[2018-04-12] MEDS: Multivit, Therapeutic 1 TAB PO SCH (08:49)
[2018-04-12] MEDS: Torsemide 20 MG TAB PO SCH (09:53)
[2018-04-12] MEDS ORDERED: Acetaminophen 325 MG TAB PO PRN (10:17)
[2018-04-12 15:38] VITALS: BP 148/69; TEMP 97.3
[2018-04-12] MEDS: fentaNYL 50 mcg/hour Patch TD SCH (16:07)
--- NOTE | 2018-04-13 09:28 | DIS ---
DATE OF ADMISSION: 04/05/2018 DATE OF DISCHARGE: 04/12/2018 ADMITTING DIAGNOSES: 1. Occipital skull fracture. 2. Subarachnoid hemorrhage. 3. Persistent concussive symptoms. DISCHARGE DIAGNOSES: 1. Occipital skull fracture. 2. Subarachnoid hemorrhage. 3. Concussive symptoms. CONSULTING PHYSICIANS: Dr. Hubert Jeong, Neurosurgery. PROCEDURES: None. HOSPITAL COURSE: Ms. Jones presented to the emergency department, status post fall from standing while she was dancing. She did hit her head and reported a loss of consciousness. At that time, the emergency department completed a CT of the head, C-spine as well as the T and L spines. They also completed a chest x-ray and a pelvic x-ray. Imaging demonstrated an occipital skull fracture with a subarachnoid hemorrhage. The patient also was suffering from concussive symptoms, most specifically nausea and dizziness. She was admitted to the Trauma Service on April 06 for concussive symptoms and physical therapy and placement at an appropriate rehab facility. She had a mostly uncomplicated hospital course and was treated for her concussive symptoms. At the time of discharge, she was tolerating a regular diet. Pain was well controlled. She had a bowel movement and was urinating without difficulty. DISCHARGE DISPOSITION: Acute rehab. DISCHARGE CONDITION: Satisfactory. PHYSICAL EXAMINATION: VITAL SIGNS: Temperature 97.3, pulse 84, respirations 14, oxygen saturation 96% on room air, and blood pressure 148/69. GENERAL: Alert, well-appearing, lying in bed and easily awoken. NEURO: GCS is 15. Alert and oriented x3. Gross motor and sensation intact. Pupils are equal, round, and reactive to light. PULMONARY: No signs of acute distress. Equal chest rise and fall. Lung singh are clear bilaterally. HEART: Regular rate and rhythm. No murmurs, gallops, or rubs. GASTROINTESTINAL: Abdomen is soft, nontender, and nondistended. Positive bowel sounds. EXTREMITIES: Gross motor and sensation is intact. 2+ pulses in all extremities. No swelling noted. DISCHARGE INSTRUCTIONS: The patient was discharged to a rehab facility and instructed to follow up with the Trauma Clinic as needed and to call with any questions. She did not need any followup with Dr. Jeong and she was also instructed to see her primary care physician within 7 to 10 days. Her activity instructions were activity as tolerated on a regular diet with no restrictions. Therapy was requested through Occupational and Physical Therapy. She did not require any additional equipment. DISCHARGE MEDICATIONS: 1. Tylenol. 2. Dulcolax. 3. Tums. 4. Fentanyl patch. 5. DuoNeb. 6. Metoprolol. 7. MiraLAX. 8. Senokot. 9. Multivitamins. 10. Nexium. 11. Lidoderm patches. 12. Trulicity. 13. Vitamin C. 14. Rizatriptan. 15. Lyrica. 16. Temazepam. 17. Furosemide. 18. Calcium plus vitamin D. 19. Cymbalta. 20. Folic acid. 21. Lisinopril. 22. Potassium chloride. FOLLOWUP APPOINTMENTS: The patient should follow up with her primary care physician in 7 to 10 days. No followup needed to Trauma Clinic but was encouraged to call with any questions. No followup needed with Neurosurgery. Job ID: [id number]
--- NOTE | 2018-04-14 20:45 | EKG ---
Test Reason : Blood Pressure : / mmHG Vent. Rate : 175 BPM Atrial Rate : 187 BPM P-R Int : 000 ms QRS Dur : 150 ms QT Int : 272 ms P-R-T Axes : 000 029 034 degrees QTc Int : 464 ms Undetermined rhythm Non-specific intra-ventricular conduction block Lateral infarct , age undetermined Abnormal ECG Confirmed by CHAMP MARQUEZ D.O. ([id number]), editor sound JERALD OBREGON ([id number]) on 04/14/2018 8:45:10 PM Referred By: Confirmed By:CHAMP MARQUEZ D.O.
== END 2018-04-12 16:20 | DRG 83 ==
LOC: ERS 17:24 → ERHOLD 20:00 → SURG A 04-06 13:47
PROVIDERS: ADMIT Surgery; ATTEND Surgery
DX: S06.6X9A Traumatic subarachnoid hemorrhage with loss of consciousness of unspecified duration, initial encounter (principal); D69.3 Immune thrombocytopenic purpura; S02.119A Unspecified fracture of occiput, initial encounter for closed fracture; W19.XXXA Unspecified fall, initial encounter; Y92.099 Unspecified place in other non-institutional residence as the place of occurrence of the external cause; G89.29 Other chronic pain; J44.9 Chronic obstructive pulmonary disease, unspecified; I10 Essential (primary) hypertension; F32.9 Major depressive disorder, single episode, unspecified; Z85.42 Personal history of malignant neoplasm of other parts of uterus; Z87.891 Personal history of nicotine dependence; Z88.5 Allergy status to narcotic agent
CPT/HCPCS: 36415; 70450; 71045; 72125; 72128; 72131; 72170; 80048; 80053; 83605; 83735; 84100; 84484; 85025; 85610; 85730; 93005; 96361; 96365; 96375; 96376; G0390; J0131; J1170; J2405; J7620; Q0162; S0028

== ENCOUNTER 2018-06-21 12:04 | Outpatient (CLI) | payer MEDICARE, BC ==
--- NOTE | 2018-06-21 12:26 | RAD ---
FExam: Chest 2 view HISTORY:Dyspnea Comparison: 04/05/2018 FINDINGS: Lungs: Hyperinflated with interstitial prominence Cardiac silhouette: Normal size Pulmonary vessels: Mild central prominence Pleural Spaces: Clear Pneumothorax: None There is vascular calcification. Spinal stimulator overlies the mid thoracic spine. Osseous abnormalities: None IMPRESSION: COPD
== END 2018-06-21 12:05 | disposition home or self-care (01) ==
LOC: RAD 12:04
PROVIDERS: ATTEND Internal Medicine Critical Care Medicine
DX: R06.00 Dyspnea, unspecified (principal); J44.9 Chronic obstructive pulmonary disease, unspecified
CPT/HCPCS: 71046

== ENCOUNTER 2018-11-06 11:33 | Outpatient (CLI) | payer MEDICARE, BC ==
--- NOTE | 2018-12-04 15:07 | MMO ---
Bilateral MAMMO Bilat Screen [facility]. CLINICAL HISTORY: Patient is 78 years old and is seen for screening. The patient has no family history of breast cancer. The patient has a history of endometrial cancer in 2001. VIEWS: The views performed were: bilateral craniocaudal with tomosynthesis and bilateral mediolateral oblique with tomosynthesis. FILMS COMPARED: The present examination has been compared to prior imaging studies performed at [facility] on 10/30/2017, at [facility] on 08/05/2014, and at [facility] on 09/09/2015 and 09/09/2016. This study has been interpreted with the assistance of computer-aided detection. MAMMOGRAM FINDINGS: There are scattered fibroglandular densities. There are no suspicious masses, suspicious calcifications, or new areas of architectural distortion. IMPRESSION: THERE IS NO MAMMOGRAPHIC EVIDENCE OF MALIGNANCY. A ROUTINE FOLLOW-UP MAMMOGRAM IN 1 YEAR IS RECOMMENDED. THE RESULTS OF THIS EXAM WERE SENT TO THE PATIENT. ACR BI-RADS Category 1 - Negative MAMMOGRAPHY NOTE: 1. A negative mammogram report should not delay a biopsy if a dominant of clinically suspicious mass is present. 2. Approximately 10% to 15% of breast cancers are not detected by mammography. 3. Adenosis and dense breasts may obscure an underlying neoplasm. Reported by: EDIN BAKER MD Electonically Signed: [id number]
== END 2018-11-06 11:34 | disposition home or self-care (01) ==
LOC: BICMAMMO 11:33
PROVIDERS: ATTEND Internal Medicine
DX: Z12.31 Encounter for screening mammogram for malignant neoplasm of breast (principal); Z85.42 Personal history of malignant neoplasm of other parts of uterus
CPT/HCPCS: 77063; 77067

== ENCOUNTER 2019-04-26 17:36 | Inpatient (IN) | payer MEDICARE, BC ==
[~2019-04-26 17:36] MED LIST: Iopamidol-370 76% 500 ML 1 ML ONE
[2019-04-26 18:15] LABS: #Basophils 0.1 thou/uL (0.0-0.2); #Eosinphils 0.1 thou/uL (0.0-0.7); #Lymphocytes 4.8 thou/uL (1.20-3.40); #Monocytes 1.1 thou/uL (0.11-0.59); #Neutrophils 10.3 thou/uL (1.40-6.50); %Basophils 0.6 % (0.0-1.0); %Eosinophils 0.7 % (0.0-10.0); %Lymphocytes 29.3 % (21.0-51.0); %Monocytes 6.8 % (0.0-10.0); %Neutrophils 62.7 % (42.0-75.0); Hemoglobin 12.6 g/dL (12.0-16.0); Mean Corpuscular HGB CONC 32.6 g/dL (32.0-36.0); Mean Corpuscular Hemoglobin 28.8 pg (27.0-31.0); Mean Corpuscular Volume 88.5 fL (78.0-98.0); Mean Platelet Volume 11.2 fL (7.4-10.4); Platelet Count 299 thou/uL (130-400); RBC Distribution Width 15.4 % (11.5-14.5); Red Blood Cell (RBC) Count 4.38 mill/uL (4.20-5.40); White Blood Cell (WBC) Count 16.4 thou/uL (4.8-10.8)
[2019-04-26] MEDS ORDERED: Piperacillin/Tazobactam 4.5 GM VIAL ONE (18:32)
[2019-04-26 18:43] LABS: ALT (SGPT) 15 U/L (8-55); AST (SGOT) 28 U/L (5-34); Albumin 4.1 g/dL (3.4-4.8); Alkaline Phosphatase 54 U/L (40-110); Anion Gap 18 mmol/L (10-20); BUN (Urea Nitrogen) 16 mg/dL (9.8-20.1); Bilirubin, Total 0.5 mg/dL (0.2-1.2); Calc. Creatinine Clearance 0 mL/min (70-130); Calcium 9.5 mg/dL (7.8-10.44); Carbon Dioxide 27 mmol/L (23-31); Chloride 91 mmol/L (98-107); Estimated GFR-MDRD 37; Globulin 4.1 g/dL (2.4-3.5); Glucose 108 mg/dL (83-110); Potassium 4.2 mmol/L (3.5-5.1); Protein, Total 8.2 g/dL (6.0-8.3); Sodium 132 mmol/L (136-145)
[2019-04-26 18:50] LABS: Magnesium 1.5 mg/dL (1.6-2.6)
--- NOTE | 2019-04-26 19:13 | CT ---
CT Abdomen Pelvis W Con HISTORY: Abdominal pain, weakness, headache, colectomy and ileostomy on 02/17/2019 COMPARISON: 02/22/2019 and 04/16/2019. FINDINGS: The lung bases are clear. There are postop changes of colectomy, right-sided ileostomy and cholecystectomy and splenectomy. There is mild prominence of the intrahepatic biliary ductal tree which is stable. The pancreas, adrenal glands and kidneys are normal. No free air, free fluid or lymp hadenopathy seen in the abdomen or pelvis. The small bowel loops aren't abnormally dilated. There are vascular calcifications without evidence of aneurysmal dilatation of the abdominal aorta. There a re degenerative changes in the spine. IMPRESSION: No evidence of acute process.
[2019-04-26] MEDS ORDERED: Vancomycin HCl 1.75 GM in Sodium Chloride 0.9% 500 ML IVPB SCH (20:15)
--- NOTE | 2019-04-26 20:18 | RAD ---
XR Chest 1 View Portable HISTORY: Dehydration COMPARISON: 04/14/2019 FINDINGS: The heart size is normal. The aorta is tortuous. The lungs are well expanded without focal areas of consolidation, pneumothorax or pleural effusions. Dorsal stimulator leads are again noted IMPRESSION: No radiographic evidence of acute cardiopulmonary process.
[2019-04-26 20:43] LABS: Bacteria/HPF None Seen HPF (None Seen); Bilirubin Negative (Negative); Blood, Urine Negative (Negative); Clarity Clear (Clear); Glucose, Urine (Dipstick) Normal (Negative); Leukocyte 75 Leu/uL (Negative); Nitrite Negative (Negative); Protein, Urine (Dipstick) Negative (Neg-Trace); RBC/HPF 0-3 HPF (0-3); Renal Epithelial 0-3 HPF (None Seen); Squamous Epithelial 0-3 HPF (0-3); Urobilinogen Normal mg/dL (Less than 2); WBC/HPF 0-3 HPF (0-3)
[2019-04-26] MEDS ORDERED: Morphine 2 MG/ML SYRINGE ONE (21:36)
--- NOTE | 2019-04-26 23:15 | PDOC.EVN ---
Event Note - Event Note Event Note: [id number] HP
[2019-04-27] MEDS ORDERED: Acetaminophen 325 MG TAB PO PRN (01:39)
[2019-04-27] MEDS ORDERED: SUMAtriptan Succinate 50 MG TAB PO PRN (01:39)
--- NOTE | 2019-04-27 01:59 | HP ---
CHIEF COMPLAINT: Weakness and abdominal pain. HISTORY OF PRESENT ILLNESS: Ms. Jones is a 78-year-old female with significant surgical abdominal history, ileostomy, hyperlipidemia, hypertension, COPD, idiopathic thrombocytopenic purpura, among others, presents to the emergency room with weakness, abdominal pain since yesterday. The patient reports she was here several weeks ago for possible stroke, was in rehab, then went home Monday. The patient reported increased weakness since Monday with abdominal cramping that started yesterday. The patient has an ileostomy bag. Denies nausea, vomiting, or fever. Workup in the emergency room including imaging studies, no acute finding. Chest x-ray, no acute finding. Electrolytes; sodium was 132, magnesium is low at 1.5. The patient appears to be dehydrated. Creatinine is 1.3. WBC count is elevated at 16.4, no obvious source of infection. The patient is being admitted to the hospital for further management. PAST MEDICAL HISTORY: As mentioned above in the history of present illness. PAST SURGICAL HISTORY: 1. Cholecystectomy. 2. Hysterectomy. 3. Splenectomy. 4. Bowel resection. 5. Appendectomy. PAST PSYCHIATRIC HISTORY: Anxiety and depression. SOCIAL HISTORY: Denies alcohol use. Denies drug use. No smoking history. FAMILY HISTORY: Reviewed and noncontributory. ALLERGIES: ALLERGIC TO MORPHINE AND LATEX GLOVES. HOME MEDICATIONS: Please see home medication reconciliation form for updated medications. REVIEW OF SYSTEMS: Review of 14 systems negative except what is mentioned in history of present illness. PHYSICAL EXAMINATION: GENERAL: The patient is awake, alert, in mild distress. HEAD AND NECK: Normocephalic. Dry oral mucosa. Neck is supple. CHEST: Fair bilateral air entry. HEART: S1 and S2. Regular. ABDOMEN: Soft with ostomy bag. NEUROLOGIC: Awake, alert, oriented. No focal deficits. PSYCH: Unable to assess. EXTREMITIES: No clubbing or cyanosis. LABORATORY DATA: As mentioned above in history of present illness. Imaging studies as mentioned above in history of present illness. ASSESSMENT: 1. Dehydration. 2. Abdominal pain. Imaging studies, nondiagnostic. 3. Leukocytosis, no obvious source of infection. 4. Ileostomy status. 5. Hypertension. 6. Hyperlipidemia. 7. Chronic obstructive pulmonary disease. 8. Hyponatremia. 9. Hypomagnesemia. PLAN: 1. Admit. 2. IV fluid hydration. 3. Symptomatic management. 4. We will hold giving any further antibiotics tonight, reassess in a.m. 5. Monitor and replace electrolytes. 6. Monitor and replace electrolytes. 7. Reconcile home medications. 8. DVT prophylaxis. Early ambulation. 9. Expected length of stay 2 midnights. Job ID: [id number]
[2019-04-27 03:26] VITALS: BMI 22.8
[2019-04-27] MEDS ORDERED: Magnesium 2 GM/50 ML 2 GM in Premix Bag 1 BAG IVPB SCH (03:30)
--- NOTE | 2019-04-27 04:53 | PDOC.EVN ---
Event Note - Event Note Event Note: called by RN. patient more lethargic She did get morphine in ED afebrile following commands speech is slow moving all extremities will get CT brain, to follow results.
[2019-04-27] MEDS ORDERED: cefTRIAXone Sodium 1,000 MG in Syringe 0 ML IVPB SCH (05:00)
[2019-04-27] MEDS: cefTRIAXone\\ROCEPHIN 1 GM in Sodium Chloride 0.9% 100 ML IVPB SCH (05:50)
[2019-04-27] MEDS: Sodium Chloride 0.9% 1,000 ML IV SCH ×4 (05:50→21:13)
[2019-04-27 05:54] LABS: #Basophils 0.1 thou/uL (0.0-0.2); #Lymphocytes 1.7 thou/uL (1.20-3.40); #Monocytes 0.7 thou/uL (0.11-0.59); #Neutrophils 12.7 thou/uL (1.40-6.50); %Basophils 0.5 % (0.0-1.0); %Eosinophils 0.2 % (0.0-10.0); %Lymphocytes 11.4 % (21.0-51.0); %Monocytes 4.4 % (0.0-10.0); %Neutrophils 83.5 % (42.0-75.0); Hemoglobin 11.6 g/dL (12.0-16.0); Mean Corpuscular HGB CONC 33.3 g/dL (32.0-36.0); Mean Corpuscular Hemoglobin 29.5 pg (27.0-31.0); Mean Corpuscular Volume 88.6 fL (78.0-98.0); Platelet Count 282 thou/uL (130-400); RBC Distribution Width 15.4 % (11.5-14.5); Red Blood Cell (RBC) Count 3.93 mill/uL (4.20-5.40); White Blood Cell (WBC) Count 15.2 thou/uL (4.8-10.8)
[2019-04-27 06:13] LABS: ALT (SGPT) 12 U/L (8-55); AST (SGOT) 13 U/L (5-34); Albumin 3.7 g/dL (3.4-4.8); Alkaline Phosphatase 44 U/L (40-110); Anion Gap 13 mmol/L (10-20); BUN (Urea Nitrogen) 11 mg/dL (9.8-20.1); Bilirubin, Total 0.7 mg/dL (0.2-1.2); Calc. Creatinine Clearance 53 mL/min (70-130); Calcium 8.7 mg/dL (7.8-10.44); Carbon Dioxide 26 mmol/L (23-31); Chloride 101 mmol/L (98-107); Estimated GFR-MDRD 56; Globulin 3.2 g/dL (2.4-3.5); Glucose 106 mg/dL (83-110); Protein, Total 6.9 g/dL (6.0-8.3); Sodium 137 mmol/L (136-145)
[2019-04-27 06:16] LABS: Potassium 2.8 mmol/L (3.5-5.1)
[2019-04-27] MEDS ORDERED: Potassium Chloride 20 MEQ in Premix Bag 1 BAG IVPB SCH (06:45)
[2019-04-27] MEDS ORDERED: Potassium Chloride 20 MEQ TAB PO SCH (06:45)
[2019-04-27] MEDS: Famotidine/PF 20 mg/2ml Vial SLOW IVP SCH (07:55)
--- NOTE | 2019-04-27 07:55 | CT ---
HEAD CT WITHOUT CONTRAST: HISTORY: Headache. Confusion. Altered mental status. COMPARISON: 04/14/2019. FINDINGS: No parenchymal hemorrhage. No extraaxial hematoma. No midline shift. Basilar cisterns are patent. Brain volume, age appropriate. Cortical weiss-white differentiation is preserved. No hydrocephalus. There are chronic small-vessel ischemic changes of the white matter. Calvarium is intact. Adequate aeration of the sinuses and mastoid air cells. IMPRESSION: No acute intracranial process. POS: PPP
[2019-04-27 12:48] LABS: Potassium 4.9 mmol/L (3.5-5.1)
--- NOTE | 2019-04-27 16:37 | PDOC.HOSPP ---
- Subjective Encounter Date: 04/27/19 Encounter Time: 13:30 Subjective: d/w pt and family at length. wbcs sig'ly high, K being replaced. 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 pt's speech is dysarthric but can comprehend. concern about her worsening functional status and lytes being abnormal. also concerned about osteomy output being high. Requested the GI consult. - Objective Vital Signs & Weight: Vital Signs (12 hours) Temp Pulse Resp BP Pulse Ox 04/27/19 11:16 99.3 F 93 16 120/68 99 04/27/19 09:00 98 04/27/19 07:23 98.3 F 98 16 153/67 H 98 04/27/19 06:22 100 Weight Weight 154 lb 12.8 oz Result Diagrams: 04/27/19 05:43 04/27/19 12:07 Hospitalist ROS - Medication Medications: Active Medications Generic Name Dose Route Start Last Admin Trade Name Freq PRN Reason Stop Dose Admin Famotidine 20 mg 04/27/19 09:00 04/27/19 07:55 Pepcid SLOW IVP 20 mg DAILY MITCH Administration Ceftriaxone Sodium 1 gm/ 100 mls @ 200 mls/hr 04/27/19 05:00 04/27/19 05:50 Sodium Chloride IVPB 100 mls Q24HR MITCH Administration Sodium Chloride 1,000 mls @ 75 mls/hr 04/27/19 05:00 04/27/19 05:50 Normal Saline 0.9% IV 1,000 mls .[id number] MITCH Administration - Exam General Appearance: NAD, awake alert Eye: PERRL, anicteric sclera ENT: normocephalic atraumatic Neck: supple, symmetric Heart: RRR Respiratory: CTAB Gastrointestinal: soft, non-distended, normal bowel sounds Extremities: no cyanosis, clubbing Neurological: no focal deficits Psychiatric: normal affect Hosp A/P - Plan Dehydration [pt does takes 8 cups of water daily.?, per dtr]. Leukocytosis without source for infectoin - CT -abd and cXR non-revealing. --cw hydration - on diet --wbcs improving. -bl cx of 7th - NGSF - on CTX hx of abd sux -s/p osteomy - pt does takes 8 cups of water daily. - per famly request, requested GI consult. Hyponatremia Hypokalemia -being replaced w.. NS -K improved. restarted home meds. Lives in assisted living. May need more help.
[2019-04-27] MEDS ORDERED: Pregabalin 50 MG CAP PO SCH (21:00)
[2019-04-27] MEDS: Metoprolol Tartrate 25 MG TAB PO SCH (21:14)
[2019-04-27] MEDS: Atorvastatin Calcium 10 MG TAB PO SCH (21:14)
[2019-04-27] MEDS: Loperamide HCl 2 MG CAP PO SCH (21:14)
[2019-04-27] MEDS: Temazepam 15 MG CAP PO SCH (21:15)
[2019-04-27] MEDS ORDERED: Pregabalin 75 MG CAP PO SCH (21:30)
--- NOTE | 2019-04-28 00:29 | CON ---
DATE OF CONSULTATION: 04/27/2019 REASON FOR CONSULTATION: Hypokalemia secondary to high output ileostomy. CONSULTING PROVIDER: Vilma Knowles MD HISTORY OF PRESENT ILLNESS: The patient is a 78-year-old female with past medical history of hyperlipidemia, hypertension, COPD, ITP status post splenectomy, uterine cancer status post hysterectomy, anxiety, depression, recent subarachnoid hemorrhage and bowel resection with resultant ileostomy, presenting with hypokalemia felt to be secondary to high output ileostomy. The patient is a fairly poor historian, so the majority of the information was actually obtained through chart review and discussion with nursing staff. Per patient and per staff, the patient had recently undergone colonic resection with ileostomy placement in February [address] Bustillos. In the postoperative period, the patient was discharged to a rehab center and in the rehab center was noted to be emptying her back approximately every 2 to 3 hours. She was ultimately discharged to home, but could not adequately take care for self at home, so she was actually placed in assisted living facility for further management. However, she states that since discharge from the hospital after her surgery, she has had inadequate education regarding to the care of her ileostomy except until recently when a home health ostomy nurse was able to provide more education regarding her surgery. However, earlier this week, she started to exhibit increased lethargy, decreased appetite, weakness, and abdominal pain that progressively worsened over the next 24 to 48 hours. Upon evaluation in the [facility] ER, she was noted to have a significantly low magnesium and potassium and was ultimately admitted to the hospital for electrolyte replacement secondary to high output ileostomy. Per the patient, she states that she continues to empty her bag around every 2 to 3 hours and has been attempting to drink around 2 to 3 L of water a day. However, she does not recall the amount of fluid that she drains from a bag on each occasion. She also endorses increased midepigastric pain characterized as a pressure/cramping type sensation, is intermittent, will radiate to the periumbilical region and reaches a severity of 5/10. However, currently, she states that she is not experiencing this abdominal pain, but has noticed that this pain will increase whenever she has the passage of a more solid stool through her ileostomy. Otherwise, she states that she is doing well with no complaints of nausea, vomiting, fevers, chills, hematemesis, melena, hematochezia, dysphagia, odynophagia, or weight loss. REVIEW OF SYSTEMS: A 10-category review of systems was obtained with all responses negative except for the pertinent positives as listed in HPI. PAST MEDICAL HISTORY: As per HPI. PAST SURGICAL HISTORY: Cholecystectomy, hysterectomy, splenectomy, bowel resection status post ileostomy and appendectomy. FAMILY HISTORY: Denies any GI malignancies. SOCIAL HISTORY: Denies any tobacco, alcohol, or illicit drug use. OUTPATIENT MEDICATIONS: Reviewed. ALLERGIES: MORPHINE AND LATEX. PHYSICAL EXAMINATION: VITAL SIGNS: Temperature 99.3, pulse 93, blood pressure 120/68, respiratory rate 16, saturating 99% on room air. GENERAL: The patient was lying in bed, in no acute distress. Alert and oriented x4. Mild tangential thought processing. HEENT: Normocephalic, atraumatic. NECK: Supple. No JVD or scleral icterus noted. CARDIOVASCULAR: Regular rate and rhythm with no discernible murmurs, gallops, or rubs. RESPIRATORY: Clear to auscultation bilaterally with no discernible wheezes or rales. ABDOMEN: Normoactive bowel sounds. Soft, nondistended, mild tenderness to palpation in the left lower quadrant and suprapubic regions. Ostomy located in the right marquita-abdomen with no evidence of ostomy breakdown or purulence. EXTREMITIES: No cyanosis, clubbing, or edema. LABORATORY DATA: CBC with a white blood cell count of 15.2, hemoglobin 11.6, hematocrit 34.8, platelets 282. Chemistry with a sodium of 137, potassium 2.8, chloride 101, CO2 of 26, BUN 11, creatinine 0.96, glucose 106, AST 13, ALT 12, alkaline phosphatase 44, total bilirubin 0.7, lipase 16. IMAGING DATA: CT of the abdomen and pelvis was obtained on April 26, 2019, which showed postoperative changes consistent with colectomy and right-sided ostomy placement. Surgical change also associated with splenectomy. A mild prominence of the intrahepatic ducts was seen, but stable when compared to previous. There was no evidence of acute process. CT of the brain was also obtained on April 27, 2019, which was negative for obvious abnormality. ASSESSMENT AND PLAN: The patient is a 78-year-old female with past medical history of hyperlipidemia, hypertension, chronic obstructive pulmonary disease, ITP status post splenectomy, uterine cancer status post hysterectomy, anxiety, depression, recent subarachnoid hemorrhage and bowel resection status post ileostomy placement, presenting with hypokalemia, hypomagnesemia secondary to increased ostomy output. Increased ostomy output. It is difficult to discern from the patient how much she is actually having out of her ostomy over 24 hours and has been fairly ill prepared for the presence of ostomy after her surgery. Only until recently when she was evaluated by the home ostomy nurse that she has been able to adequately care for the ostomy itself in addition to increasing her fluid intake in order to prevent dehydration. It is unclear if she just has not been eating or drinking enough in order to maintain adequate nutrition with an ostomy or whether or not she actually does have a high output from her ostomy itself. At this time, it is also unclear if the patient is adequately maintaining ingestion of fluids to counteract the effects of fluid loss to the ostomy, which is typically greater than 500 mL per day. Current guidelines recommend consuming approximately 2.5 to 3 L daily to counteract losses from the ileostomy itself. In terms of her abdominal pain, it seems to be more related to harder stools through the ostomy itself and is most likely due to things like partial food/stool blockage of the ostomy site, which can occur because the ileal lumen is less than 1 inch in diameter. RECOMMENDATIONS: 1. Would start patient on a higher fiber diet with fiber supplementation with Metamucil as part of a soluble fiber supplementation to prevent clumping or drying of stool. 2. We will consider administration of loperamide 4 mg b.i.d. as needed for ostomy. 3. Recommend intake of a higher amount of fluids orally with electrolyte replacement (fluids like Pedialyte in the emergency could be considered). 4. Continue to monitor patient's chemistries for determination of adequate electrolyte replacement. 5. Would have nursing staff monitor patient in terms of how much she is emptying her bag with high output ileostomy characterized as greater than 1.5 L of fluid per day. We will continue to follow. Please call with any questions. Job ID: [id number]
[2019-04-28] MEDS: Sodium Chloride 0.9% 1,000 ML IV SCH ×3 (05:38→17:40)
[2019-04-28] MEDS: cefTRIAXone\\ROCEPHIN 1 GM in Sodium Chloride 0.9% 100 ML IVPB SCH (05:38)
[2019-04-28 06:27] LABS: #Basophils 0.1 thou/uL (0.0-0.2); #Eosinphils 0.2 thou/uL (0.0-0.7); #Lymphocytes 3.4 thou/uL (1.20-3.40); #Monocytes 1.3 thou/uL (0.11-0.59); #Neutrophils 6.8 thou/uL (1.40-6.50); %Basophils 1.2 % (0.0-1.0); %Eosinophils 1.7 % (0.0-10.0); %Lymphocytes 28.5 % (21.0-51.0); %Monocytes 10.7 % (0.0-10.0); %Neutrophils 57.9 % (42.0-75.0); Hemoglobin 10.4 g/dL (12.0-16.0); Mean Corpuscular HGB CONC 31.9 g/dL (32.0-36.0); Mean Corpuscular Volume 90.9 fL (78.0-98.0); Mean Platelet Volume 10.3 fL (7.4-10.4); Platelet Count 276 thou/uL (130-400); RBC Distribution Width 15.3 % (11.5-14.5); White Blood Cell (WBC) Count 11.8 thou/uL (4.8-10.8)
[2019-04-28] MEDS: Metoprolol Tartrate 25 MG TAB PO SCH ×2 (08:04→20:22)
[2019-04-28] MEDS: Torsemide 20 MG TAB PO SCH (08:04)
[2019-04-28] MEDS: Famotidine/PF 20 mg/2ml Vial SLOW IVP SCH (08:04)
[2019-04-28] MEDS: Loperamide HCl 2 MG CAP PO SCH ×2 (08:04→20:23)
[2019-04-28] MEDS: Metamucil PACK PO SCH (08:04)
[2019-04-28] MEDS: DULoxetine 60 MG CAP PO SCH (08:05)
[2019-04-28] MEDS ORDERED: Pregabalin 75 MG CAP PO SCH ×2 (09:00→09:15)
[2019-04-28 13:37] LABS: Anion Gap 11 mmol/L (10-20); BUN (Urea Nitrogen) 4 mg/dL (9.8-20.1); Calc. Creatinine Clearance 71 mL/min (70-130); Calcium 8.8 mg/dL (7.8-10.44); Carbon Dioxide 27 mmol/L (23-31); Chloride 106 mmol/L (98-107); Estimated GFR-MDRD 79; Glucose 104 mg/dL (83-110); Sodium 141 mmol/L (136-145)
--- NOTE | 2019-04-28 13:58 | PDOC.HOSPP ---
- Subjective Encounter Date: 04/28/19 Encounter Time: 09:55 Subjective: wants regular food. ok to start high fiber diet, talked to RN on monitoring ; GI note reviewed. - Objective Vital Signs & Weight: Vital Signs (12 hours) Temp Pulse Resp BP Pulse Ox 04/28/19 13:21 88 97 04/28/19 08:05 97 04/28/19 08:01 97.6 F 88 14 144/65 H 97 04/28/19 07:21 85 18 95 Weight Weight 154 lb 12.8 oz I&O: 04/27/19 04/28/19 04/29/19 06:59 06:59 06:59 Intake Total 3080 Output Total 1450 Balance 1630 Result Diagrams: 04/28/19 06:17 04/28/19 13:07 Hospitalist ROS - Medication Medications: Active Medications Generic Name Dose Route Start Last Admin Trade Name Freq PRN Reason Stop Dose Admin Acetaminophen 650 mg 04/27/19 01:39 04/28/19 10:16 Tylenol PO 650 mg Q6H PRN Administration Mild Pain (1-3)/ FEVER Albuterol/Ipratropium 3 ml 04/27/19 19:00 04/28/19 13:21 Duoneb NEB 3 ml [id number] MITCH Administration Atorvastatin Calcium 10 mg 04/27/19 21:00 04/27/19 21:14 Lipitor PO 10 mg HS MITCH Administration Duloxetine HCl 60 mg 04/28/19 09:00 04/28/19 08:05 Cymbalta PO 60 mg DAILY MITCH Administration Famotidine 20 mg 04/27/19 09:00 04/28/19 08:04 Pepcid SLOW IVP 20 mg DAILY MITCH Administration Ceftriaxone Sodium 1 gm/ 100 mls @ 200 mls/hr 04/27/19 05:00 04/28/19 05:38 Sodium Chloride IVPB 100 mls Q24HR MITCH Administration Sodium Chloride 1,000 mls @ 75 mls/hr 04/27/19 05:00 04/28/19 08:02 Normal Saline 0.9% IV Not Given .[id number] MITCH Loperamide HCl 2 mg 04/27/19 21:00 04/28/19 08:04 Imodium PO 2 mg BID MITCH Administration Metoprolol Tartrate 12.5 mg 04/27/19 21:00 04/28/19 08:04 Lopressor PO 12.5 mg BID MITCH Administration Pantoprazole Sodium 40 mg 04/28/19 09:00 04/28/19 08:05 Protonix PO 40 mg DAILY MITCH Administration Psyllium Hydrophilic Mucilloid 1 pk 04/28/19 09:00 04/28/19 08:04 Metamucil PO 1 pk DAILY MITCH Administration Temazepam 30 mg 04/27/19 21:00 04/27/19 21:15 Restoril PO 30 mg HS MITCH Administration Torsemide 20 mg 04/28/19 09:00 04/28/19 08:04 Demadex PO Not Given DAILY MITCH - Exam Eye: PERRL ENT: normocephalic atraumatic Neck: supple, symmetric, no JVD Heart: RRR Respiratory: CTAB Gastrointestinal: non-tender, non-distended, normal bowel sounds Extremities: no cyanosis Skin: normal turgor Neurological: no focal deficits, no new deficit Hosp A/P - Plan Dehydration [pt does takes 8 cups of water daily.?, per dtr]. Leukocytosis without source for infectoin - CT -abd and cXR non-revealing. --cw hydration - on diet --wbcs improving. -bl cx of 7th - NGSF - on CTX---> as tessy neg., swtich to PO augmentin hx of abd sux -s/p osteomy - pt does takes 8 cups of water daily. - per famly request, requested GI consult. -appreciate their help - d/w RN - will monitor ileostomy output Hyponatremia Hypokalemia -being replaced w.. NS -K improved.-------------> will check Mag level as well as K consistently being on the low side. -5th Mag 1.5 restarted home meds. Lives in assisted living. May need more help. dtr - is a PTherapist.
[2019-04-28] MEDS ORDERED: Potassium Citrate 10 MEQ TAB PO SCH (14:00)
[2019-04-28] MEDS: Pregabalin 75 MG CAP PO SCH ×2 (14:51→20:23)
[2019-04-28] MEDS: SUMAtriptan Succinate 50 MG TAB PO PRN (16:27)
--- NOTE | 2019-04-28 20:20 | PRG ---
DATE OF SERVICE: 04/28/2019 REASON FOR CONSULTATION: Hypokalemia secondary to suspected high-output ileostomy. SUBJECTIVE: The patient states that she was doing well today with no acute events or problems overnight. Per the patient and per nursing staff, she has had fairly minimal fluid output from her ostomy and per nursing staff had approximately 220 mL output over the last 6 to 12 hours. Otherwise, the patient states that she is doing well with no difficulty with eating meals. She currently denies any nausea, vomiting, fevers, chills, hematemesis, melena, hematochezia, dysphagia, odynophagia, or weight loss. OBJECTIVE: VITAL SIGNS: Temperature 97.6, pulse 77, blood pressure 144/65, respiratory rate 16, saturating 100% on room air. GENERAL: The patient was lying in bed, in no acute distress. Alert and oriented x4. CARDIOVASCULAR: Regular rate and rhythm. RESPIRATORY: Clear to auscultation bilaterally. ABDOMEN: Normoactive bowel sounds. Soft, nontender, nondistended. Ostomy located in the right hemiabdomen with no evidence of ostomy breakdown or purulence. Neri brown bilious fluid was seen in the bag. EXTREMITIES: No cyanosis, clubbing, or edema. LABORATORY DATA: CBC with a white blood cell count of 11.8, hemoglobin 10.4, hematocrit 32.7, platelets 276. Chemistry with a sodium of 141, potassium 3, chloride 106, CO2 of 27, BUN 4, creatinine 0.71, glucose 104. IMAGING DATA: No current GI imaging is available for review. ASSESSMENT AND PLAN: The patient is a 78-year-old female with past medical history of hyperlipidemia; hypertension; chronic obstructive pulmonary disease; immune thrombocytopenic purpura, status post splenectomy; uterine cancer, status post hysterectomy; anxiety; depression; recent subarachnoid hemorrhage; and bowel resection, status post ileostomy placement presenting with hypokalemia and hypomagnesemia suspected to be secondary to increased ostomy output. With measuring the patient's output during this hospitalization over the last 12 hours, she has had approximately 220 mL output from the ostomy itself. Given this volume of express fluid, this would be considered normal and does not currently meet criteria for high output ileostomy (greater than 1.5 L daily). At this time, she does remain hypokalemic on labs, but it is unclear if her magnesium still needs to be replaced as well in which case it would prevent further repletement of the potassium. Currently, she is doing well with no problems or complaints. RECOMMENDATIONS: 1. Would continue the patient on a higher fiber diet with fiber supplementation with Metamucil. 2. Continue administration of loperamide 4 mg b.i.d. 3. Continue high fluid intake with electrolyte replacement. 4. Continue to monitor the patient's chemistries including potassium and magnesium. 5. Continue in's and out's of her ostomy bag. We will continue to follow. Please call with any questions. Job ID: [id number]
[2019-04-28] MEDS: Atorvastatin Calcium 10 MG TAB PO SCH (20:22)
[2019-04-28] MEDS: Temazepam 15 MG CAP PO SCH (20:23)
[2019-04-28] MEDS: Amoxicillin/Potassium Clav 875 MG TAB PO SCH (20:23)
[2019-04-29] MEDS ORDERED: Lidocaine 2% Viscous Solution 10 ML, Aluminum & Magnesium Hydroxide 30 ML SSW SCH (01:30)
[2019-04-29] MEDS: Ondansetron PF 4 MG/2 ML Vial IVP PRN ×2 (03:49→19:48)
[2019-04-29] MEDS: Sodium Chloride 0.9% 1,000 ML IV SCH (05:31)
[2019-04-29 05:38] LABS: #Basophils 0.1 thou/uL (0.0-0.2); #Eosinphils 0.6 thou/uL (0.0-0.7); #Lymphocytes 2.2 thou/uL (1.20-3.40); #Monocytes 1.8 thou/uL (0.11-0.59); #Neutrophils 14.8 thou/uL (1.40-6.50); %Basophils 0.3 % (0.0-1.0); %Eosinophils 3.3 % (0.0-10.0); %Lymphocytes 11.4 % (21.0-51.0); Hemoglobin 10.8 g/dL (12.0-16.0); Mean Corpuscular Hemoglobin 28.9 pg (27.0-31.0); Mean Corpuscular Volume 90.2 fL (78.0-98.0); Mean Platelet Volume 11.2 fL (7.4-10.4); Platelet Count 280 thou/uL (130-400); RBC Distribution Width 15.6 % (11.5-14.5); Red Blood Cell (RBC) Count 3.74 mill/uL (4.20-5.40); White Blood Cell (WBC) Count 19.5 thou/uL (4.8-10.8)
[2019-04-29] MEDS: Metoprolol Tartrate 25 MG TAB PO SCH ×2 (08:32→21:22)
[2019-04-29] MEDS: Loperamide HCl 2 MG CAP PO SCH ×2 (08:33→21:21)
[2019-04-29] MEDS: SUMAtriptan Succinate 50 MG TAB PO PRN (08:33)
[2019-04-29] MEDS: DULoxetine 60 MG CAP PO SCH (08:33)
[2019-04-29] MEDS: Potassium Chloride 20 MEQ TAB PO SCH (08:33)
[2019-04-29] MEDS: Amoxicillin/Potassium Clav 875 MG TAB PO SCH ×2 (08:33→21:24)
[2019-04-29] MEDS: Metamucil PACK PO SCH (08:34)
[2019-04-29] MEDS: Pregabalin 75 MG CAP PO SCH ×3 (08:46→21:46)
[2019-04-29] MEDS: Torsemide 20 MG TAB PO SCH (08:47)
[2019-04-29 10:06] LABS: Anion Gap 20 mmol/L (10-20); BUN (Urea Nitrogen) 6 mg/dL (9.8-20.1); Calc. Creatinine Clearance 67 mL/min (70-130); Calcium 9.1 mg/dL (7.8-10.44); Carbon Dioxide 17 mmol/L (23-31); Chloride 107 mmol/L (98-107); Estimated GFR-MDRD 73; Glucose 108 mg/dL (83-110); Magnesium 1.8 mg/dL (1.6-2.6); Potassium 3.8 mmol/L (3.5-5.1); Sodium 140 mmol/L (136-145)
--- NOTE | 2019-04-29 10:21 | RAD ---
CHEST 1 VIEW: Date: 04/29/2019 Time: 0915 hours HISTORY: High WBC count. COMPARISON: 04/26/2019. FINDINGS: The heart size is normal. The aorta is tortuous. The lungs are well expanded without lobar consolidat ion, pneumothoraces, or pleural effusions. Dorsal stimulator leads are again noted. IMPRESSION: No radiographic evidence of acute cardiopulmonary process. POS: [facility]
--- NOTE | 2019-04-29 13:12 | PDOC.HOSPP ---
- Subjective Encounter Date: 04/29/19 Encounter Time: 11:30 Subjective: pt resting, she states that she has high output and documentation did not reflect. nutrition will be following with us. K and BP nl range. - Objective Vital Signs & Weight: Vital Signs (12 hours) Temp Pulse Resp BP Pulse Ox 04/29/19 12:53 83 16 99 04/29/19 08:30 100 04/29/19 07:29 97.4 F L 77 18 129/66 100 04/29/19 07:22 77 16 97 Weight Weight 154 lb 12.8 oz I&O: 04/28/19 04/29/19 04/30/19 06:59 06:59 06:59 Intake Total 3080 3420 Output Total 1450 2670 Balance 1630 750 Result Diagrams: 04/29/19 05:11 04/29/19 09:07 Hospitalist ROS - Medication Medications: Active Medications Generic Name Dose Route Start Last Admin Trade Name Freq PRN Reason Stop Dose Admin Acetaminophen 650 mg 04/27/19 01:39 04/28/19 10:16 Tylenol PO 650 mg Q6H PRN Administration Mild Pain (1-3)/ FEVER Albuterol/Ipratropium 3 ml 04/27/19 19:00 04/29/19 12:53 Duoneb NEB 3 ml [id number] MITCH Administration Amoxicillin/Clavulanate Potassium 875 mg 04/28/19 21:00 04/29/19 08:33 Augmentin PO 05/03/19 09:01 875 mg Q12HR MITCH Administration Atorvastatin Calcium 10 mg 04/27/19 21:00 04/28/19 20:22 Lipitor PO 10 mg HS MITCH Administration Duloxetine HCl 60 mg 04/28/19 09:00 04/29/19 08:33 Cymbalta PO 60 mg DAILY MITCH Administration Sodium Chloride 1,000 mls @ 75 mls/hr 04/27/19 05:00 04/29/19 05:31 Normal Saline 0.9% IV 1,000 mls .[id number] MITCH Administration Loperamide HCl 2 mg 04/27/19 21:00 04/29/19 08:33 Imodium PO 2 mg BID MITCH Administration Metoprolol Tartrate 12.5 mg 04/27/19 21:00 04/29/19 08:32 Lopressor PO 12.5 mg BID MITCH Administration Ondansetron HCl 4 mg 04/26/19 22:50 04/29/19 03:49 Zofran IVP 4 mg Q6H PRN Administration Nausea/Vomiting Pantoprazole Sodium 40 mg 04/28/19 09:00 04/29/19 08:33 Protonix PO 40 mg DAILY MITCH Administration Potassium Chloride 20 meq 04/29/19 09:00 04/29/19 08:33 K-Dur PO 05/01/19 09:01 20 meq DAILY MITCH Administration Pregabalin 75 mg 04/28/19 15:00 04/29/19 08:46 Lyrica PO Not Given TID MITCH Psyllium Hydrophilic Mucilloid 1 pk 04/28/19 09:00 04/29/19 08:34 Metamucil PO 1 pk DAILY MITCH Administration Sumatriptan Succinate 50 mg 04/27/19 14:44 04/29/19 08:33 Imitrex PO 50 mg Q4H PRN Administration Migraine Headache Temazepam 30 mg 04/27/19 21:00 04/28/19 20:23 Restoril PO 30 mg HS MITCH Administration Torsemide 20 mg 04/28/19 09:00 04/29/19 08:47 Demadex PO Not Given DAILY MITCH - Exam General Appearance: awake alert ENT: normocephalic atraumatic Neck: supple Heart: RRR, no murmur Respiratory: CTAB Gastrointestinal: soft, non-distended, normal bowel sounds Neurological: no focal deficits Hosp A/P - Plan Dehydration [pt does takes 8 cups of water daily.?, per dtr]. Leukocytosis without source for infectoin - CT -abd and cXR non-revealing. --cw hydration - on diet --wbcs improving. -bl cx of 7th - NGSF - on CTX---> as tessy neg., swtich to PO augmentin hx of abd sux -s/p osteomy - pt does takes 8 cups of water daily. - per famly request, requested GI consult. -appreciate their help - d/w RN - will monitor ileostomy output Hyponatremia Hypokalemia -being replaced w.. NS -K improved.-------------> will check Mag level as well as K consistently being on the low side. -5th Mag 1.5 restarted home meds. Lives in assisted living. May need more help. dtr - is a PTherapist. 10th - Leukocytosis --etiol unknow- cxr neg UA done 2 days prior - no acitive sn of infection -on augmentin -pending CRP -likley inflammatory process,a s clinically no sn of infection. - nutritional/carpenter helper maintenance c/s -per GI - she does not have high ostomy output. K is normalizing. transfer to assisted living when medically more stable PT consulted.
[2019-04-29] MEDS ORDERED: Iopamidol-370 76% 500 ML 1 ML ONE (15:55)
[2019-04-29] MEDS ORDERED: Famotidine 20 MG TAB PO SCH (18:45)
--- NOTE | 2019-04-29 19:16 | PRG ---
DATE OF SERVICE: 04/29/2019 SUBJECTIVE: The patient is lucid. She reports having some generalized abdominal pain, but not severe. There is no nausea or vomiting until she ate outside fast food last night. She had 1800 mL of ileostomy output over the restaurant shift supervisor and thus far 300 mL over the last 8 hours. There is no nausea or vomiting today. PHYSICAL EXAMINATION: VITAL SIGNS: Temperature is 97.4, blood pressure 129/66, and pulse of 77. GENERAL: She is alert and conversant, does not appear in distress. HEENT: Shows anicteric sclerae. Oropharynx clear and moist. CV: Shows normal S1, S2. Regular rate and rhythm. CHEST: Shows breath sounds. ABDOMEN: Soft. There is no distention. No tympany. She has active bowel sounds. Mildly tender. No guarding or rebound. Watery stool in the ileostomy bag. EXTREMITIES: Show no edema. LABORATORY DATA: WBC is 19.5, hemoglobin 10.8, and platelet count of 280. Sodium 140, potassium 3.8, chloride 107, CO2 of 17, creatinine is 0.6, BUN of 6, magnesium of 1.8, and calcium 9.1. ASSESSMENT: High ileostomy output. This is certainly a difficult situation of this 78-year-old female with multiple previous abdominal surgeries include small bowel resection after her splenectomy for adhesions in addition to most recent colectomy for ischemic colitis. The patient also has had previous cholecystectomy and ruptured appendicitis. At her age, adaption to ileostomy will be difficult and lengthy. In addition, I do not know how much of the previous small bowel resection she had. High ileostomy output from last night could be related to osmotic load from outside food. While technically bile acid binder does not work in the absence of the colon, she did have a response to colestipol following her surgery. Tincture of opium could reduce ileostomy output; however, I am reluctant to prescribe this given her recent fall with resultant subarachnoid hemorrhage. Abdominal pain, likely nonspecific. Her CT with contrast on 04/26/19 did not show any evidence of obstruction or any inflammatory process. RECOMMENDATIONS: 1. Dietary consult to educate patient on a high-fiber, high starch diet for bulking and lessen watery stool. 2. We will place the patient on a bile acid binder to see, cholestyramine 4 g b.i.d., and monitor. 3. We will obtain a CT angiogram to assess for any mesenteric insufficiency given her ongoing abdominal pain with recent history of severe ischemic colitis. 4. We will follow go. Job ID: [id number] [facility] CENTERAubrie
[2019-04-29] MEDS ORDERED: Ondansetron ODT 4 MG TAB PO PRN (19:45)
--- NOTE | 2019-04-29 21:12 | CT ---
CTA ABDOMEN AND PELVIS WITH BILATERAL LOWER EXTREMITY RUNOFF: INDICATIONS: Abdominal pain with history of ischemic colitis TECHNIQUE: Multiple CTA images were obtained of the abdomen and pelvis utilizing IV contrast and 3D reformatted imaging. Axial, coronal and sagittal reformatted images were constructed from the raw data. Comparisons are made with a CTA of the abdomen and pelvis dated April 16, 2019. FINDINGS: ABDOMEN: Lung bases: There is a calcified granuloma in the right middle lobe. There is emphysematous change in volving both lung bases. Liver: There is moderate intrahepatic and extra hepatic biliary ductal dilatation. Gallbladder is ayleen gically absent Gallbladder: Surgically absent Pancreas: Normal. Adrenal glands: Normal. Spleen: Surgically absent Kidneys and ureters: Normal. No hydronephrosis. Lymph nodes:No lymphadenopathy. Free fluid in abdomen:No free fluid is evident. PELVIS: Small and large bowel: There is severe dilatation of loops of small bowel within the abdomen with a s uggested transition zone in the right upper quadrant of the abdomen. This is near a small bowel to small bowel anastomosis. There is a stable right lower quadrant ileostomy. There is a near total melissa ctomy. There is a long Aiken's pouch within the lower pelvis. Appendix:Surgically absent Bladder: Normal. Rectal and perirectal soft tissues:Normal. Reproductive structures: Surgically absent Free fluid in pelvis: Small free fluid Lymphadenopathy pelvis: No lymphadenopathy is evident. Osseous structures: There is prominent levoscoliosis of lumbar spine. There is diffuse osteopenia. Th ere is healed fractures involving the right obturator ring. There is a dorsal column stimulator present. There is scattered degenerative and osteoarthritic changes. Soft tissues:Normal. VASCULATURE: Aorta: There are severe vascular calcifications involving the abdominal aorta without aneurysmal dila tation Celiac:There is stable moderate to severe narrowing involving the proximal celiac artery. SMA:Normal in caliber without evidence of stenosis or occlusion. Renal arteries:Normal in caliber without evidence of stenosis or occlusion. IRENE:Normal in caliber without evidence of stenosis or occlusion. Right common iliac artery: Normal in caliber without evidence of stenosis or occlusion. Right external iliac artery: Normal in caliber without evidence of stenosis or occlusion. Right internal iliac artery: Normal in caliber without evidence of stenosis or occlusion. Left common iliac artery: Normal in caliber without evidence of stenosis or occlusion. Left external iliac artery: Normal in caliber without evidence of stenosis or occlusion.. Left internal iliac artery: Normal in caliber without evidence of stenosis or occlusion. Additional findings: None. IMPRESSION: 1. Severe partial small bowel obstruction with a suggested transition zone in the right lower quadran t near a small bowel small bowel anastomotic site. 2. 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 3. Other chronic findings as above
[2019-04-29] MEDS: Atorvastatin Calcium 10 MG TAB PO SCH (21:21)
[2019-04-29] MEDS: traMADol HCl 50 MG TAB PO PRN (21:22)
[2019-04-29] MEDS: Temazepam 15 MG CAP PO SCH (21:22)
[2019-04-29] MEDS: Cholestyramine/Aspartame 4 gm Packet PO SCH (22:46)
[2019-04-29] MEDS: NS 0.9% w/ 20 MEQ KCL 1,000 ML/1,000 ML BAG IV SCH (23:02)
[2019-04-29] MEDS: Promethazine HCl 12.5 MG in Sodium Chloride 0.9% 50 ML IVPB PRN (23:02)
[2019-04-30] MEDS ORDERED: Ketorolac Tromethamine 30 MG/ML VIAL IVP SCH (00:15)
[2019-04-30] MEDS: NS 0.9% w/ 20 MEQ KCL 1,000 ML/1,000 ML BAG IV SCH ×3 (05:21→21:35)
[2019-04-30] MEDS: Promethazine HCl 12.5 MG in Sodium Chloride 0.9% 50 ML IVPB PRN (05:21)
[2019-04-30 05:50] LABS: #Basophils 0.1 thou/uL (0.0-0.2); #Eosinphils 0.9 thou/uL (0.0-0.7); #Lymphocytes 3.5 thou/uL (1.20-3.40); #Monocytes 1.4 thou/uL (0.11-0.59); #Neutrophils 12.6 thou/uL (1.40-6.50); %Basophils 0.3 % (0.0-1.0); %Eosinophils 4.8 % (0.0-10.0); %Lymphocytes 18.9 % (21.0-51.0); %Monocytes 7.5 % (0.0-10.0); %Neutrophils 68.5 % (42.0-75.0); Hemoglobin 12.7 g/dL (12.0-16.0); Mean Corpuscular HGB CONC 31.1 g/dL (32.0-36.0); Mean Corpuscular Hemoglobin 28.2 pg (27.0-31.0); Mean Corpuscular Volume 90.7 fL (78.0-98.0); Mean Platelet Volume 11.3 fL (7.4-10.4); Platelet Count 280 thou/uL (130-400); RBC Distribution Width 15.7 % (11.5-14.5); Red Blood Cell (RBC) Count 4.51 mill/uL (4.20-5.40); White Blood Cell (WBC) Count 18.4 thou/uL (4.8-10.8)
--- NOTE | 2019-04-30 08:45 | RAD ---
ABDOMEN 1 VIEW: HISTORY: Verify NG tube position. FINDINGS: Implantable device overlies the left lower abdomen, evidence for dorsal column stimulator, the tips o f which appear to overlie T8. Contrast media is noted within both right and left kidney collecting s ystems and urinary bladder from previous CT. No overt bowel obstruction. NG tube in satisfactory lo cation. IMPRESSION: Nasogastric tube in satisfactory location. Other findings as above. POS: [facility]
[2019-04-30 10:08] LABS: Anion Gap 15 mmol/L (10-20); BUN (Urea Nitrogen) 7 mg/dL (9.8-20.1); Calc. Creatinine Clearance 53 mL/min (70-130); Calcium 9.1 mg/dL (7.8-10.44); Carbon Dioxide 28 mmol/L (23-31); Chloride 102 mmol/L (98-107); Estimated GFR-MDRD 56; Glucose 95 mg/dL (83-110); Magnesium 1.9 mg/dL (1.6-2.6); Potassium 3.6 mmol/L (3.5-5.1); Sodium 141 mmol/L (136-145)
[2019-04-30] MEDS: DULoxetine 60 MG CAP PO SCH (10:26)
[2019-04-30] MEDS: Loperamide HCl 2 MG CAP PO SCH ×2 (10:27→19:53)
[2019-04-30] MEDS: Metoprolol Tartrate 25 MG TAB PO SCH ×2 (10:27→19:53)
[2019-04-30] MEDS: Famotidine 20 MG TAB PO SCH (10:27)
[2019-04-30] MEDS: Potassium Chloride 20 MEQ TAB PO SCH (10:28)
[2019-04-30] MEDS: Pregabalin 75 MG CAP PO SCH (10:28)
[2019-04-30] MEDS: Cholestyramine/Aspartame 4 gm Packet PO SCH ×2 (10:29→19:54)
[2019-04-30] MEDS: Metamucil PACK PO SCH (10:29)
[2019-04-30] MEDS: Torsemide 20 MG TAB PO SCH (10:29)
[2019-04-30] MEDS: Amoxicillin/Potassium Clav 875 MG TAB PO SCH (10:32)
[2019-04-30] MEDS: Piperacillin/Tazobactam 3.375 GM in Sodium Chloride 0.9% 100 ML IVPB SCH ×3 (11:21→21:39)
--- NOTE | 2019-04-30 12:14 | PDOC.HOSPP ---
- Subjective Encounter Date: 04/30/19 Encounter Time: 09:45 Subjective: SBO - on NGT, bilious drain. K is nl range. wbcs trending down; ice chips and NPO. - Objective Vital Signs & Weight: Vital Signs (12 hours) Temp Pulse Resp BP BP Pulse Ox 04/30/19 11:26 97.8 F 94 20 98/54 L 99 04/30/19 07:14 88 16 96 04/30/19 05:52 98.4 F 94 18 146/76 H 93 L 04/30/19 00:27 98.3 F 113 H 18 145/81 H 98 Weight Weight 154 lb 12.8 oz I&O: 04/29/19 04/30/19 05/01/19 06:59 06:59 06:59 Intake Total 3420 4355 Output Total 2679 9728 Balance 750 -1994 Result Diagrams: 04/30/19 05:30 04/30/19 09:37 Hospitalist ROS - Medication Medications: Active Medications Generic Name Dose Route Start Last Admin Trade Name Freq PRN Reason Stop Dose Admin Acetaminophen 650 mg 04/27/19 01:39 04/28/19 10:16 Tylenol PO 650 mg Q6H PRN Administration Mild Pain (1-3)/ FEVER Albuterol/Ipratropium 3 ml 04/27/19 19:00 04/30/19 07:14 Duoneb NEB 3 ml [id number] MITCH Administration Atorvastatin Calcium 10 mg 04/27/19 21:00 04/29/19 21:21 Lipitor PO 10 mg HS MITCH Administration Cholestyramine Resin 4 gm 04/29/19 22:00 04/30/19 10:29 Questran Light PO Not Given 1000,2200 MITCH Duloxetine HCl 60 mg 04/28/19 09:00 04/30/19 10:26 Cymbalta PO Not Given DAILY MITCH Famotidine 20 mg 04/30/19 09:00 04/30/19 10:27 Pepcid PO Not Given QAM MITCH Promethazine HCl 12.5 mg/ 50.5 mls @ 202 mls/hr 04/29/19 22:03 04/30/19 05:21 Sodium Chloride IVPB 50.5 mls Q6H PRN Administration Nausea Potassium Chloride/Sodium Chloride 1,000 ml in 1,000 mls @ 125 mls/hr 22:30 04/30/19 05:21 Ns 0.9% W/ 20 Meq Kcl IV 1,000 mls .Q8H MITCH Administration Piperacillin Sod/Tazobactam 100 mls @ 200 mls/hr 04/30/19 09:45 04/30/19 11: 21 Sod 3.375 gm/ Sodium Chloride IVPB 100 mls Q8H MITCH Administration Loperamide HCl 2 mg 04/27/19 21:00 04/30/19 10:27 Imodium PO Not Given BID [facility] Metoprolol Tartrate 12.5 mg 04/27/19 21:00 04/30/19 10:27 Lopressor PO Not Given BID [facility] Ondansetron HCl 4 mg 04/26/19 22:50 04/29/19 19:48 Zofran IVP 4 mg Q6H PRN Administration Nausea/Vomiting Pantoprazole Sodium 40 mg 04/28/19 09:00 04/30/19 10:27 Protonix PO Not Given DAILY [facility] Potassium Chloride 20 meq 04/29/19 09:00 04/30/19 10:28 K-Dur PO 05/01/19 09:01 Not Given DAILY [facility] Pregabalin 75 mg 04/28/19 15:00 04/30/19 10:28 Lyrica PO Not Given TID [facility] Psyllium Hydrophilic Mucilloid 1 pk 04/28/19 09:00 04/30/19 10:29 Metamucil PO Not Given DAILY [facility] Sumatriptan Succinate 50 mg 04/27/19 14:44 04/29/19 08:33 Imitrex PO 50 mg Q4H PRN Administration Migraine Headache Temazepam 30 mg 04/27/19 21:00 04/29/19 21:22 Restoril PO 30 mg HS MITCH Administration Torsemide 20 mg 04/28/19 09:00 04/30/19 10:29 Demadex PO Not Given DAILY [facility] Tramadol HCl 50 mg 04/27/19 16:32 04/29/19 21:22 Ultram PO 50 mg Q6H PRN Administration Moderate to Severe Pain (6-10) - Exam General Appearance: awake alert Eye: PERRL ENT - other findings: NGT draining bilious Heart: RRR Respiratory: CTAB Gastrointestinal: soft, non-distended, normal bowel sounds Skin: normal turgor Neurological: no focal deficits Hosp A/P - Plan Dehydration [pt does takes 8 cups of water daily.?, per dtr]. Leukocytosis without source for infectoin - CT -abd and cXR non-revealing. --cw hydration - on diet --wbcs improving. -bl cx of 7th - NGSF - on CTX---> as tessy neg., swtich to PO augmentin hx of abd sux -s/p osteomy - pt does takes 8 cups of water daily. - per famly request, requested GI consult. -appreciate their help - d/w RN - will monitor ileostomy output Hyponatremia Hypokalemia -being replaced w.. NS -K improved.-------------> will check Mag level as well as K consistently being on the low side. -5th Mag 1.5 restarted home meds. Lives in assisted living. May need more help. dtr - is a PTherapist. 10th - Leukocytosis --etiol unknow- cxr neg UA done 2 days prior - no acitive sn of infection -on augmentin -pending CRP -likley inflammatory process,a s clinically no sn of infection. - nutritional/assistant attorney general c/s -per GI - she does not have high ostomy output. K is normalizing. transfer to assisted living when medically more stable PT consulted. 11th Severe SBO -NGT in place and draining bilious; nPO and ice chips ok. -monitor lytes -appreciate the help from GI. leukocytosis -trending down. -escalated abx to cover for GNR as well until wbcs trends down -if temp, then we need to get blood culture and 7th blood cx neg. pt's all qs answered.
[2019-04-30] MEDS: Atorvastatin Calcium 10 MG TAB PO SCH (19:53)
[2019-04-30] MEDS: Temazepam 15 MG CAP PO SCH (19:54)
[2019-04-30] MEDS ORDERED: Fentanyl 100 MCG/2 ML VIAL SLOW IVP PRN ×2 (21:38→21:41)
[2019-04-30] MEDS ORDERED: diphenhydrAMINE 50 MG/ML VIAL IVP SCH (21:45)
--- NOTE | 2019-04-30 22:52 | CON ---
DATE OF CONSULTATION: 04/30/2019 REASON FOR CONSULTATION: Possible small bowel obstruction. HISTORY OF PRESENT ILLNESS: The patient is a 78-year-old chronically ill white female, well known to myself. On February 17, I performed an emergent exploratory laparotomy in treatment of sepsis with hemodynamic compromise. She was found to have ischemia and necrosis of the majority of her colon and I performed a subtotal colectomy with end ileostomy. She had a lengthy recuperation, was eventually discharged from the hospital on March 08. She has been back to the hospital and been admitted a couple of times since then for problems relating to high-output ileostomy with electrolyte derangement. She was most recently admitted for this on April 27 (three days ago). CT scan at the time of her admission then showed no acute intraabdominal abnormalities. Yesterday, she developed abdominal distention with nausea and vomiting. This is the first episode of this that she has experienced since her surgery (a little over two months ago). CT scan that was obtained related to CT angiography demonstrated substantial gastric distention and small bowel distention with what appeared to be some version of small bowel obstruction. Nasogastric tube was placed. She has resumed having ileostomy output today. She has been consuming a large volume of ice chips and of course has not vomited since her nasogastric tube was placed. She notes that she feels much better at this time (almost 24 hours after her NG tube was placed). Her medical records are difficult to traverse as she has two separate medical records and the records from the admission which I performed her surgery are not included with the records from her current admission. PAST MEDICAL HISTORY: Significant for chronic pain, depression, anxiety, COPD, diabetes. PAST SURGICAL HISTORY: Multiple operations include: 1. Open cholecystectomy. 2. Open splenectomy. 3. Hysterectomy for endometrial cancer. 4. Two laparotomies in 1999, at least one of which resulted in a small-bowel resection. 5. Spine stimulator placement. 6. Exploratory laparotomy with subtotal colectomy that I performed on February 17, 2019. MEDICATIONS: Numerous that include: 1. Lyrica. 2. Torsemide. 3. Potassium. 4. Nexium. 5. Wellbutrin. 6. Cymbalta. 7. Alprazolam. 8. Temazepam. 9. Trulicity. 10. Anoro inhaler. 11. She was formally on a fentanyl patch, but patient tells me she has been off this patch for at least the past two weeks. ALLERGIES: TO MORPHINE. PERSONAL AND SOCIAL HISTORY: She is with 3 children. One of her daughter is currently at bedside. I visited this patient and her daughter multiple times during the course of her hospitalization and subsequently postop in my office. The patient is currently in assisted living facility. She formerly smoked, but quit smoking five years ago. She has apparently stopped using the nicotine containing E-cigarette recently as well. REVIEW OF SYSTEMS: Otherwise unremarkable. FAMILY HISTORY: Noncontributory. PHYSICAL EXAMINATION: VITAL SIGNS: Temperature is 98.4, pulse 96, blood pressure is 124/69. GENERAL: She is a well-developed, pleasant, alert white female, resting in bed, in no acute distress. She is alert and oriented x3, and recognizes me immediately upon entering the room. HEAD, EYES, EARS, NOSE, AND THROAT: Unremarkable. NECK: Supple. LUNGS: Clear to auscultation. CARDIAC: Regular rate and rhythm without murmur. ABDOMEN: Soft, nontender, and nondistended. Her midline incision is nicely healed. She has a functioning ileostomy in the right lower quadrant. There is some dark stool output from this. Bowel sounds are present and entirely normoactive. There is no high-pitched or tympanitic bowel sounds. EXTREMITIES: Unremarkable. LABORATORY DATA: White blood cell count is elevated at 18.4, down from 19 yesterday. Hemoglobin is 12.7. She has a relatively unremarkable differential with no substantial left shift. Chemistries reveal normal electrolytes. BUN and creatinine are essentially normal. Glucose is normal. ASSESSMENT: The patient had an apparent small bowel obstruction yesterday based on her vomiting and CT scan. Nasogastric tube was placed and this appears to have resolved. It would be unusual for her to develop a bowel obstruction at this juncture out from her surgery related to this hospitalization. It is, however, certainly possible in light of the numerous operation that she has had that she could develop an obstruction related to adhesions at any time. For now, since this appears to have resolved, I would recommend getting a Gastrografin small-bowel follow-through in the morning. If contrast passes, as I anticipate it will, then her tube should be removed and a liquid diet initiated. I spent a long time explaining all this to the patient and her daughter. After concerns regarding the obstruction have resolved, then further efforts could be initiated to control the ostomy output in an attempt to minimize problems with her electrolyte imbalances. Job ID: [id number]
[2019-05-01] MEDS: NS 0.9% w/ 20 MEQ KCL 1,000 ML/1,000 ML BAG IV SCH ×2 (04:57→19:01)
[2019-05-01] MEDS: Piperacillin/Tazobactam 3.375 GM in Sodium Chloride 0.9% 100 ML IVPB SCH ×3 (04:57→21:18)
[2019-05-01 05:44] LABS: #Basophils 0.1 thou/uL (0.0-0.2); #Eosinphils 0.5 thou/uL (0.0-0.7); #Lymphocytes 3.3 thou/uL (1.20-3.40); #Monocytes 1.8 thou/uL (0.11-0.59); #Neutrophils 12.5 thou/uL (1.40-6.50); %Basophils 0.5 % (0.0-1.0); %Lymphocytes 17.9 % (21.0-51.0); %Monocytes 9.6 % (0.0-10.0); %Neutrophils 68.9 % (42.0-75.0); Mean Corpuscular HGB CONC 33.2 g/dL (32.0-36.0); Mean Corpuscular Hemoglobin 29.7 pg (27.0-31.0); Mean Corpuscular Volume 89.6 fL (78.0-98.0); Platelet Count 276 thou/uL (130-400); RBC Distribution Width 15.9 % (11.5-14.5); Red Blood Cell (RBC) Count 4.03 mill/uL (4.20-5.40); White Blood Cell (WBC) Count 18.2 thou/uL (4.8-10.8)
--- NOTE | 2019-05-01 07:02 | PDOC.GSPN ---
Surgery Progress Note: Subj - Subjective Patient reports: no new complaints, voiding w/o difficulty Narrative: Pt was stable overnight w/ no acute events and no febrile episodes. Pt had poor sleep quality due to NGT output of 1,700mL, which transitioned from bilious to darker brown color. Pt had 40mL dark brown ileostomy output overnight, and said she "feels ok." Pt is on 125mL NS w/ 20mEq KCl w/ ice chip privilege. Pt complained of bilat. knee pain of chronic origin, which required IV fentanyl. Pt has been walking, and used bedside commode x4 overnight. Pt remained NPO and is scheduled to have gastrografin SB follow through later this morning. Surgery Progress Note: Obj - Vital signs Vital signs: Vital Signs - Most Recent Temp Pulse Resp BP Pulse Ox 98.0 F 100 18 124/69 99 04/30/19 20:32 04/30/19 20:32 04/30/19 20:32 04/30/19 16:35 04/30/19 20:32 - Physical Exam General: no distress ENT: normal mucosa Cardiovascular: regular rate and rhythm Respiratory: clear to auscultation, normal respiratory effort Abdomen: soft, non tender, nondistended, positive bowel sounds Integumentary: no rash, other (normal turgor) Psychiatric: oriented to time, oriented to person, oriented to place Surgery Progress Note: Results - Labs Result Diagrams: 05/01/19 05:33 04/30/19 09:37 Lab results: Laboratory Results - last 24 hr Surgery Progress Note: A/P - Problem (1) Small bowel obstruction Current Visit: Yes Code(s): K56.609 - UNSP INTESTNL OBST, UNSP TO PARTIAL VERSUS COMPLETE OBST Status: Acute - Plan Plan: Pt is a 78yo CF w/ sig. PSH of cholecystectomy, appendectomy, splenectomy, and ex lap on 02/17/19 for sepsis which resulted in subtotal colectomy w/ ileostomy for ischemic bowel. Pt presented on 04/26/19 for complaints of weakness and abd. pain. Pt initially had high ileostomy output. Pt also had V yesterday, which resolved w/ NGT w high output requiring replacement of suction canister x2 overnight. Pt had minimal pain and no acute complaints. Pt's blood culture was ( -), and pt is finishing her current pip/tazo regimen. Pt had leukocytosis of unknown origin, but WBC has trended downward to 18.2H this morning. Pt had low K & Mg initially, but both have returned to normal values. Pt is stable, but had signs of orthostatic hypotension yesterday, continue monitoring pt's I&O to prevent deficit/excess. Pt had CT abd. 2d/a which revealed partial SBO at RLQ, and pt is scheduled to have gastrografin SB follow through today. Pt is currently NPO but may transition to clear liquid diet w/ NGT removal if gatrografin passes.
--- NOTE | 2019-05-01 07:54 | PRG ---
DATE OF SERVICE: 04/30/2019 SUBJECTIVE: Ms. Jones denies any abdominal pain at this point in time. She states one full NG decompression tube suctioned out and then she has about 150 mL in the next one. She reports that Dr. Bustillos came by today and plans on getting a small-bowel follow-through tomorrow. Her IV apparently is nonfunctioning and has been so since 1300 today. In talking with the nurse, they are trying to get someone from the ICU to come start an IV. I have explained to them that an IV needs to be started tonight and if they cannot get one, she may need a central line and she has came in with dehydration from perfuse highest T high ostomy output and now has an obstruction. NG tube is n.p.o. and IV antibiotics were ordered. Medications reviewed. OBJECTIVE: VITAL SIGNS: Temperature is 98.4, pulse 96, blood pressure 124/69 at 1635. GENERAL: She is sitting in bed comfortably. She has no distress. NG tube is in place. ABDOMEN: Soft, nontender. Bowel sounds are fairly quiescent. Gastric NG output is recorded 400 today, but it did seems that in addition that she has had a full canister out, and this was recorded at 4 L and I am not sure how that was measured. Her ostomy output at 1900 overnight, but it has only been 225 today. LABORATORY STUDIES: White count was 18.4 this morning, hemoglobin 12.7, platelet count 280. Sodium 141, potassium 3.6, BUN and creatinine are 7 and 0.96. ASSESSMENT: 1. High output ostomy. It is unclear if this is related to a developing partial obstruction and interestingly, there was no obstruction seen on a CT scan on 04/26/2019 when she first came in. A CT angio yesterday apparently showed no evidence of ischemia, but a high-grade partial obstruction distally. She has had previous small bowel surgery with Dr. Russell in the distant past and more recently had a subtotal colectomy for acute ischemic colon two admissions ago. 2. Dehydration. 3. Leukocytosis. RECOMMENDATIONS: 1. Continue IV antibiotics. Continue NG suction. Continue IV fluids. 2. We will check labs in the morning. 3. Agree with surgeries planned for management of the partial obstruction with small-bowel x-ray tomorrow. ADDENDUM: The nurse informs me that actually her IV is functioning until 5 o'clock and it just went bad and they are going to get that replaced. I think that she will get that done easily. Additionally, the patient asked me to call her daughter again. Dr. Oliva has already talked with her earlier today for quite a long period of time and Dr. Bustillos was able to visit with her. I have informed the patient that I really do not have anything to add further at this time and agree with the management plan for the NG tube decompression and small-bowel x-ray tomorrow and that Dr. Oliva will return tomorrow. Job ID: [id number]
[2019-05-01] MEDS: Torsemide 20 MG TAB PO SCH (09:20)
[2019-05-01] MEDS: DULoxetine 60 MG CAP PO SCH (09:20)
[2019-05-01] MEDS: Potassium Chloride 20 MEQ TAB PO SCH (09:20)
[2019-05-01] MEDS: Cholestyramine/Aspartame 4 gm Packet PO SCH ×2 (09:20→20:07)
[2019-05-01] MEDS: Metoprolol Tartrate 25 MG TAB PO SCH ×2 (09:20→20:06)
[2019-05-01] MEDS: Loperamide HCl 2 MG CAP PO SCH ×2 (09:20→20:06)
[2019-05-01 09:49] LABS: Anion Gap 18 mmol/L (10-20); BUN (Urea Nitrogen) 9 mg/dL (9.8-20.1); Calc. Creatinine Clearance 58 mL/min (70-130); Calcium 9.6 mg/dL (7.8-10.44); Carbon Dioxide 24 mmol/L (23-31); Chloride 106 mmol/L (98-107); Estimated GFR-MDRD 63; Glucose 88 mg/dL (83-110); Magnesium 1.9 mg/dL (1.6-2.6); Sodium 145 mmol/L (136-145)
--- NOTE | 2019-05-01 13:21 | RAD ---
EXAM: Small bowel follow-through HISTORY: Small bowel obstruction COMPARISON: CT abdomen/pelvis 04/29/2019 FINDINGS: A Gastrografin small bowel follow-through was performed. Surgical clips are seen throughout the abdomen. The small bowel loops are normal in caliber without distention. Contrast passes through the small bowel loops to the colon by 3 hours. A spinal stimulation device is partially visualized. IMPRESSION: No evidence of complete bowel obstruction
--- NOTE | 2019-05-01 13:45 | PDOC.HOSPP ---
- Subjective Encounter Date: 05/01/19 Encounter Time: 11:15 Subjective: NGT put out 500ml of dark brown fluid, y'day was bilious, ileostomy around 275m; / K down. pt has no acute c/o; just completed gastrograffin study. - Objective Vital Signs & Weight: Vital Signs (12 hours) Temp Pulse Resp BP Pulse Ox 05/01/19 08:00 95 05/01/19 07:51 98.1 F 106 H 20 121/77 95 Weight Weight 154 lb 12.8 oz I&O: 04/30/19 05/01/19 05/02/19 06:59 06:59 06:59 Intake Total 4355 1225 Output Total 6335 665 Balance -1994 560 Result Diagrams: 05/01/19 05:33 05/01/19 09:03 Hospitalist ROS - Medication Medications: Active Medications Generic Name Dose Route Start Last Admin Trade Name Freq PRN Reason Stop Dose Admin Acetaminophen 650 mg 04/27/19 01:39 04/28/19 10:16 Tylenol PO 650 mg Q6H PRN Administration Mild Pain (1-3)/ FEVER Albuterol/Ipratropium 3 ml 04/27/19 19:00 05/01/19 13:30 Duoneb NEB Not Given [id number] [facility] Atorvastatin Calcium 10 mg 04/27/19 21:00 04/30/19 19:53 Lipitor PO Not Given HS [facility] Cholestyramine Resin 4 gm 04/29/19 22:00 04/30/19 19:54 Questran Light PO Not Given 1000,2200 [facility] Duloxetine HCl 60 mg 04/28/19 09:00 04/30/19 10:26 Cymbalta PO Not Given DAILY [facility] Famotidine 20 mg 04/30/19 09:00 04/30/19 10:27 Pepcid PO Not Given QAM [facility] Fentanyl 25 mcg 04/30/19 21:41 05/01/19 03:31 Sublimaze SLOW IVP 25 mcg Q4H PRN Administration Severe Pain (7-10) Promethazine HCl 12.5 mg/ 50.5 mls @ 202 mls/hr 04/29/19 22:03 04/30/19 05:21 Sodium Chloride IVPB 50.5 mls Q6H PRN Administration Nausea Potassium Chloride/Sodium Chloride 1,000 ml in 1,000 mls @ 125 mls/hr 22:30 05/01/19 04:57 Ns 0.9% W/ 20 Meq Kcl IV 1,000 mls .Q8H [facility] Administration Piperacillin Sod/Tazobactam 100 mls @ 200 mls/hr 04/30/19 22:00 05/01/19 13: 25 Sod 3.375 gm/ Sodium Chloride IVPB 100 mls Q8HR [facility] Administration Loperamide HCl 2 mg 04/27/19 21:00 04/30/19 19:53 Imodium PO Not Given BID [facility] Metoprolol Tartrate 12.5 mg 04/27/19 21:00 04/30/19 19:53 Lopressor PO Not Given BID [facility] Ondansetron HCl 4 mg 04/26/19 22:50 04/29/19 19:48 Zofran IVP 4 mg Q6H PRN Administration Nausea/Vomiting Pantoprazole Sodium 40 mg 04/28/19 09:00 04/30/19 10:27 Protonix PO Not Given DAILY [facility] Pregabalin 75 mg 04/28/19 15:00 04/30/19 10:28 Lyrica PO Not Given TID [facility] Psyllium Hydrophilic Mucilloid 1 pk 04/28/19 09:00 04/30/19 10:29 Metamucil PO Not Given DAILY [facility] Sumatriptan Succinate 50 mg 04/27/19 14:44 04/29/19 08:33 Imitrex PO 50 mg Q4H PRN Administration Migraine Headache Temazepam 30 mg 04/27/19 21:00 04/30/19 19:54 Restoril PO Not Given HS [facility] Torsemide 20 mg 04/28/19 09:00 04/30/19 10:29 Demadex PO Not Given DAILY [facility] Tramadol HCl 50 mg 04/27/19 16:32 04/29/19 21:22 Ultram PO 50 mg Q6H PRN Administration Moderate to Severe Pain (6-10) - Exam General Appearance: NAD, awake alert Eye: PERRL ENT: normocephalic atraumatic ENT - other findings: NGT Neck: supple Heart: RRR Respiratory: CTAB, no rales, no tachypnea, rhonchi Gastrointestinal: soft, non-tender, normal bowel sounds Neurological: cranial nerve grossly intact, no focal deficits Hosp A/P - Plan Dehydration [pt does takes 8 cups of water daily.?, per dtr]. Leukocytosis without source for infectoin - CT -abd and cXR non-revealing. --cw hydration - on diet --wbcs improving. -bl cx of 7th - NGSF - on CTX---> as tessy neg., swtich to PO augmentin hx of abd sux -s/p osteomy - pt does takes 8 cups of water daily. - per famly request, requested GI consult. -appreciate their help - d/w RN - will monitor ileostomy output Hyponatremia Hypokalemia -being replaced w.. NS -K improved.-------------> will check Mag level as well as K consistently being on the low side. -5th Mag 1.5 restarted home meds. Lives in assisted living. May need more help. dtr - is a PTherapist. 10th - Leukocytosis --etiol unknow- cxr neg UA done 2 days prior - no acitive sn of infection -on augmentin -pending CRP -likley inflammatory process,a s clinically no sn of infection. 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 K is normalizing. transfer to assisted living when medically more stable PT consulted. 11th Severe SBO -NGT in place and draining bilious; nPO and ice chips ok. -monitor lytes -appreciate the help from GI. leukocytosis -trending down. -escalated abx to cover for GNR as well until wbcs trends down -if temp, then we need to get blood culture and 7th blood cx neg. pt's all qs answered. 12th NGT around 500ml fluid, y'day was bilious, ileostomy around 275ml/ -just completed gastrograffin study. -plan to remv NGT and starts CLD Hypokalemia =-as she is NPO, in IVForm to replace goal around 4. -am labs.
[2019-05-01] MEDS ORDERED: Pantoprazole 40 MG VIAL IVP SCH (14:45)
[2019-05-01] MEDS: Potassium Chloride 40 MEQ in Sodium Chloride 0.9% 250 ML 250 ML IVPB SCH ×2 (14:48→20:05)
[2019-05-01] MEDS: Famotidine 20 MG TAB PO SCH (15:02)
[2019-05-01] MEDS ORDERED: MD-Gastroview 120 ML BOT ONE (16:19)
[2019-05-01] MEDS: Temazepam 15 MG CAP PO SCH (20:05)
[2019-05-01] MEDS: Atorvastatin Calcium 10 MG TAB PO SCH (20:06)
[2019-05-02] MEDS: NS 0.9% w/ 20 MEQ KCL 1,000 ML/1,000 ML BAG IV SCH ×2 (00:02→05:23)
[2019-05-02] MEDS: Piperacillin/Tazobactam 3.375 GM in Sodium Chloride 0.9% 100 ML IVPB SCH ×3 (05:23→16:06)
[2019-05-02 05:44] LABS: #Basophils 0.1 thou/uL (0.0-0.2); #Eosinphils 0.3 thou/uL (0.0-0.7); #Monocytes 1.4 thou/uL (0.11-0.59); #Neutrophils 8.4 thou/uL (1.40-6.50); %Eosinophils 1.9 % (0.0-10.0); %Lymphocytes 28.2 % (21.0-51.0); %Monocytes 9.7 % (0.0-10.0); %Neutrophils 59.2 % (42.0-75.0); Hemoglobin 13.1 g/dL (12.0-16.0); Mean Corpuscular HGB CONC 30.4 g/dL (32.0-36.0); Mean Corpuscular Hemoglobin 28.8 pg (27.0-31.0); Mean Corpuscular Volume 94.7 fL (78.0-98.0); Mean Platelet Volume 10.8 fL (7.4-10.4); Platelet Count 274 thou/uL (130-400); RBC Distribution Width 15.9 % (11.5-14.5); Red Blood Cell (RBC) Count 4.56 mill/uL (4.20-5.40); White Blood Cell (WBC) Count 14.2 thou/uL (4.8-10.8)
[2019-05-02 06:05] LABS: Magnesium 1.9 mg/dL (1.6-2.6); Phosphorus 4.2 mg/dL (2.3-4.7)
[2019-05-02 09:15] LABS: Anion Gap 16 mmol/L (10-20); BUN (Urea Nitrogen) 13 mg/dL (9.8-20.1); Calc. Creatinine Clearance 55 mL/min (70-130); Calcium 9.2 mg/dL (7.8-10.44); Carbon Dioxide 24 mmol/L (23-31); Chloride 111 mmol/L (98-107); Estimated GFR-MDRD 59; Glucose 93 mg/dL (83-110); Potassium 3.9 mmol/L (3.5-5.1); Sodium 147 mmol/L (136-145)
--- NOTE | 2019-05-02 09:35 | PRG ---
DATE OF SERVICE: 05/01/2019 SUBJECTIVE: Ms. Jones has noted no vomiting. Her NG output is a little bit dark brown. The small-bowel follow-through is empty to the ileum showed no signs of obstruction. OBJECTIVE: VITAL SIGNS: Pulse 75, temperature 98.7, blood pressure 155/92. LUNGS: Clear. ABDOMEN: Soft and nontender. Colostomy bag, she has clear fluid in the bag. NG tube has reported 400 mL in the last 12 hours. EXTREMITIES: Show no clubbing, cyanosis, or edema. LABORATORY DATA: White count is 18.2, hemoglobin is 12.0, platelet count is 276. Potassium is 3, down from 3.6. Magnesium is 1.9. Calcium 9.6. Electrolytes are otherwise normal. Blood cultures are negative from admission. ASSESSMENT: 1. Partial small bowel obstruction, resolving. 2. Change in color of NG output. This is likely angioectasias or slight stress ulceration. We would start a PPI. 3. High ostomy output. It had been resolved at last visit. [place] this is probably related to dietary noncompliance. PLAN: 1. Clear liquids. Discontinue NG tube. PPI IV for ulcer prophylaxis. 2. As her diet is advanced, we will see how her ostomy output goes. I agree with Dr. Bustillos. The patient does need fentanyl patch. We should just discontinue this, and then possibly in the outpatient setting or even in the inpatient setting for having complete improvement of high ostomy output despite the Questran powder, we can consider adding tincture of opium. Her family would rather try to avoid this as the patient has had falls at home and fractures in the past and is on multiple medications. tincture of opium will make her a little bit fatigued probably. 3. Recheck labs tomorrow. Job ID: [id number]
[2019-05-02] MEDS: Torsemide 20 MG TAB PO SCH (09:40)
[2019-05-02] MEDS: DULoxetine 60 MG CAP PO SCH (09:40)
[2019-05-02] MEDS: Metoprolol Tartrate 25 MG TAB PO SCH ×2 (09:41→20:21)
[2019-05-02] MEDS: Loperamide HCl 2 MG CAP PO SCH ×2 (09:41→20:21)
[2019-05-02] MEDS: Pantoprazole 40 MG VIAL IVP SCH (09:42)
[2019-05-02] MEDS: Cholestyramine/Aspartame 4 gm Packet PO SCH ×2 (09:43→20:22)
--- NOTE | 2019-05-02 15:11 | PDOC.HOSPP ---
- Subjective Encounter Date: 05/02/19 Encounter Time: 11:50 Subjective: off NGT, on CLD. Na at 146. doing good. - Objective Vital Signs & Weight: Vital Signs (12 hours) Temp Pulse Resp BP Pulse Ox 05/02/19 11:34 97.2 F L 90 20 113/74 99 05/02/19 08:00 99 05/02/19 07:51 97.7 F 90 20 118/75 99 05/02/19 07:26 88 16 93 L Weight Weight 154 lb 12.8 oz I&O: 05/01/19 05/02/19 05/03/19 06:59 06:59 06:59 Intake Total 1225 240 Output Total 665 1300 Balance 560 -1300 240 Result Diagrams: 05/02/19 05:24 05/02/19 05:24 Hospitalist ROS - Medication Medications: Active Medications Generic Name Dose Route Start Last Admin Trade Name Freq PRN Reason Stop Dose Admin Acetaminophen 650 mg 04/27/19 01:39 04/28/19 10:16 Tylenol PO 650 mg Q6H PRN Administration Mild Pain (1-3)/ FEVER Albuterol/Ipratropium 3 ml 04/27/19 19:00 05/02/19 12:34 Duoneb NEB Not Given [id number] [facility] Atorvastatin Calcium 10 mg 04/27/19 21:00 05/01/19 20:06 Lipitor PO 10 mg HS [facility] Administration Cholestyramine Resin 4 gm 04/29/19 22:00 05/02/19 09:43 Questran Light PO 4 gm 1000,2200 [facility] Administration Duloxetine HCl 60 mg 04/28/19 09:00 05/02/19 09:40 Cymbalta PO 60 mg DAILY [facility] Administration Fentanyl 25 mcg 04/30/19 21:41 05/01/19 03:31 Sublimaze SLOW IVP 25 mcg Q4H PRN Administration Severe Pain (7-10) Promethazine HCl 12.5 mg/ 50.5 mls @ 202 mls/hr 04/29/19 22:03 04/30/19 05:21 Sodium Chloride IVPB 50.5 mls Q6H PRN Administration Nausea Piperacillin Sod/Tazobactam 100 mls @ 200 mls/hr 04/30/19 22:00 05/02/19 13: 38 Sod 3.375 gm/ Sodium Chloride IVPB 100 mls Q8HR [facility] Administration Potassium Chloride 40 meq/ 1,020 mls @ 50 mls/hr 05/02/19 10:00 05/02/19 13: 39 Dextrose/Sodium Chloride IV 1,020 mls .[id number] MICTH Administration Loperamide HCl 2 mg 04/27/19 21:00 05/02/19 09:41 Imodium PO 2 mg BID [facility] Administration Metoprolol Tartrate 12.5 mg 04/27/19 21:00 05/02/19 09:41 Lopressor PO 12.5 mg BID [facility] Administration Ondansetron HCl 4 mg 04/26/19 22:50 04/29/19 19:48 Zofran IVP 4 mg Q6H PRN Administration Nausea/Vomiting Pantoprazole Sodium 40 mg 05/02/19 09:00 05/02/19 09:42 Protonix IVP 40 mg DAILY [facility] Administration Pregabalin 75 mg 04/28/19 15:00 04/30/19 10:28 Lyrica PO Not Given TID [facility] Psyllium Hydrophilic Mucilloid 1 pk 04/28/19 09:00 04/30/19 10:29 Metamucil PO Not Given DAILY [facility] Sumatriptan Succinate 50 mg 04/27/19 14:44 04/29/19 08:33 Imitrex PO 50 mg Q4H PRN Administration Migraine Headache Temazepam 30 mg 04/27/19 21:00 05/01/19 20:05 Restoril PO 30 mg HS [facility] Administration Torsemide 20 mg 04/28/19 09:00 05/02/19 09:40 Demadex PO 20 mg DAILY [facility] Administration Tramadol HCl 50 mg 04/27/19 16:32 04/29/19 21:22 Ultram PO 50 mg Q6H PRN Administration Moderate to Severe Pain (6-10) - Exam General Appearance: NAD, awake alert Eye: PERRL ENT: normocephalic atraumatic Heart: RRR Respiratory: no tachypnea Gastrointestinal: normal bowel sounds Extremities: no cyanosis Hosp A/P - Plan Dehydration [pt does takes 8 cups of water daily.?, per dtr]. Leukocytosis without source for infectoin - CT -abd and cXR non-revealing. --cw hydration - on diet --wbcs improving. -bl cx of 7th - NGSF - on CTX---> as tessy neg., swtich to PO augmentin hx of abd sux -s/p osteomy - pt does takes 8 cups of water daily. - per famly request, requested GI consult. -appreciate their help - d/w RN - will monitor ileostomy output Hyponatremia Hypokalemia -being replaced w.. NS -K improved.-------------> will check Mag level as well as K consistently being on the low side. -5th Mag 1.5 restarted home meds. Lives in assisted living. May need more help. dtr - is a PTherapist. 10th - Leukocytosis --etiol unknow- cxr neg UA done 2 days prior - no acitive sn of infection -on augmentin -pending CRP -likley inflammatory process,a s clinically no sn of infection. 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 K is normalizing. transfer to assisted living when medically more stable PT consulted. 11th Severe SBO -NGT in place and draining bilious; nPO and ice chips ok. -monitor lytes -appreciate the help from GI. leukocytosis -trending down. -escalated abx to cover for GNR as well until wbcs trends down -if temp, then we need to get blood culture and 7th blood cx neg. pt's all qs answered. 12th NGT around 500ml fluid, y'day was bilious, ileostomy around 275ml/ -just completed gastrograffin study. -plan to remv NGT and starts CLD Hypokalemia =-as she is NPO, in IVForm to replace goal around 4. -am labs. 13th Advancing the diet to [facility] soft diet IV infilteration pt is indeterminate getting another IV access /or midline. WBCs tredning down so can hold off on zosyn. most of other meds are PO, which we can continue.
[2019-05-02] MEDS: traMADol HCl 50 MG TAB PO PRN (17:20)
[2019-05-02] MEDS: Atorvastatin Calcium 10 MG TAB PO SCH (20:21)
[2019-05-02] MEDS: HYDROcodone/Acetaminophen 5/325 mg Tablet PO PRN (20:22)
[2019-05-02] MEDS: Temazepam 15 MG CAP PO SCH (20:22)
[2019-05-02] MEDS ORDERED: Amoxicillin/Potassium Clav 500 MG TAB PO SCH (21:00)
[2019-05-02] MEDS: Lidocaine 5% Patch TD SCH (21:03)
[2019-05-03 05:46] LABS: #Basophils 0.1 thou/uL (0.0-0.2); #Eosinphils 0.8 thou/uL (0.0-0.7); #Lymphocytes 4.2 thou/uL (1.20-3.40); #Monocytes 1.7 thou/uL (0.11-0.59); #Neutrophils 13.2 thou/uL (1.40-6.50); %Basophils 0.5 % (0.0-1.0); %Eosinophils 3.9 % (0.0-10.0); %Lymphocytes 20.9 % (21.0-51.0); %Monocytes 8.7 % (0.0-10.0); Mean Corpuscular HGB CONC 31.9 g/dL (32.0-36.0); Mean Corpuscular Hemoglobin 29.2 pg (27.0-31.0); Mean Corpuscular Volume 91.5 fL (78.0-98.0); Mean Platelet Volume 10.8 fL (7.4-10.4); Platelet Count 276 thou/uL (130-400); RBC Distribution Width 15.5 % (11.5-14.5); Red Blood Cell (RBC) Count 4.12 mill/uL (4.20-5.40); White Blood Cell (WBC) Count 19.9 thou/uL (4.8-10.8)
[2019-05-03 05:58] LABS: ALT (SGPT) 13 U/L (8-55); AST (SGOT) 18 U/L (5-34); Albumin 3.6 g/dL (3.4-4.8); Alkaline Phosphatase 41 U/L (40-110); Anion Gap 16 mmol/L (10-20); BUN (Urea Nitrogen) 14 mg/dL (9.8-20.1); Bilirubin, Total 0.5 mg/dL (0.2-1.2); Calc. Creatinine Clearance 42 mL/min (70-130); Calcium 8.8 mg/dL (7.8-10.44); Carbon Dioxide 27 mmol/L (23-31); Chloride 99 mmol/L (98-107); Estimated GFR-MDRD 43; Globulin 3.3 g/dL (2.4-3.5); Glucose 83 mg/dL (83-110); Magnesium 1.3 mg/dL (1.6-2.6); Phosphorus 3.8 mg/dL (2.3-4.7); Potassium 3.4 mmol/L (3.5-5.1); Protein, Total 6.9 g/dL (6.0-8.3); Sodium 139 mmol/L (136-145)
--- NOTE | 2019-05-03 07:35 | PDOC.GSPN ---
Surgery Progress Note: Subj - Subjective Narrative: Ms. Jones is a 78 y/o female with PMH of HTN, hyperlipidemia, COPD, ITP with splenectomy, uterine cancer post hysterectomy, anxiety/depression , recent subarachnoid hemorrhage and bowel resection (02/17) with resultant ileostomy for ischemia and necrosis, who remains on the surgical floor. Earlier this week, pt had an apparent SBO based on vomiting and CT scan that has subsequently spontaneously resolved per small bowel follow-through on 05/01. NG Tube was removed on 05/01 with no further nausea or vomiting. Overnight, pt denies any fever, abdominal pain, nausea or vomiting, but did have intermittent 10/10 "spinal" pain which disrupted her sleep. Yesterday/last night, she was given one dose of Kismet around 1999, tramadol at 1720, and lidocaine 5% patch for pain/itch but pt complains it only provided mild relief. Ileostomy has more manageable output of 125 mL overnight, used bedside commode for 3+ voids overnight, and pt has tolerated her diet (fiber restricted/ lactose free) well. She does walk/transition around her room from bed to bathroom to chair. Pt is not currently receiving IV fluids as IV was infiltrated and pulled yesterday. Surgery Progress Note: Obj - Vital signs Vital signs: Vital Signs - Most Recent Temp Pulse Resp BP Pulse Ox 97.7 F 69 20 119/75 99 05/02/19 20:11 05/02/19 20:11 05/02/19 20:11 05/02/19 20:11 05/02/19 22:22 - Physical Exam General: other (no distress, lying flat in bed and awoke to talk with me.) ENT: normal mucosa Cardiovascular: regular rate and rhythm, no murmur Respiratory: clear to auscultation, normal respiratory effort, other (without wheezing, rhonchi, or rales) Abdomen: other (soft, non-distended, non-tender, NABS, midline incision healed nicely, with functioning ileostomy in RLQ with dark stool present.) Integumentary: other (no rash, normal turgor) Psychiatric: other (pt alert, oriented, calm, cooperative) Surgery Progress Note: Results - Labs Result Diagrams: 05/06/19 04:47 05/05/19 22:41 Lab results: Laboratory Results - last 24 hr 05/03/19 05/03/19 05:03 05:03 WBC 19.9 H RBC 4.12 L Hgb 12.0 Hct 37.7 MCV 91.5 MCH 29.2 MCHC 31.9 L RDW 15.5 H Plt Count 276 MPV 10.8 H Neutrophils % 66.0 Lymphocytes % 20.9 L Monocytes % 8.7 Eosinophils % 3.9 Basophils % 0.5 Neutrophils # 13.2 H Lymphocytes # 4.2 H Monocytes # 1.7 H Eosinophils # 0.8 H Basophils # 0.1 Sodium 139 Potassium 3.4 L Chloride 99 Carbon Dioxide 27 Anion Gap 16 BUN 14 Creatinine 1.20 H Estimated GFR (MDRD) 43 Glucose 83 Calcium 8.8 Phosphorus 3.8 Magnesium 1.3 L Total Bilirubin 0.5 AST 18 ALT 13 Alkaline Phosphatase 41 Serum Total Protein 6.9 Albumin 3.6 Globulin 3.3 Albumin/Globulin Ratio 1.1 L WBC count is up to 19.9 (highest since admission) after trending downward over the last 3 days to 14.2 yesterday. Zosyn was discontinued yesterday after WBC downward trend and replaced with Augmentin (received one dose last night). Current leukocytosis shows left shift with neutrophils at 13.2. Chemistry reveals slightly low potassium at (3.4) and creatinine is elevated to 1.20 (has been < 1.0 all admission except on day of admission when was 1.38). Additionally magnesium is a bit low at 1.3 and albumin/globulin is low at 1.1 Surgery Progress Note: A/P - Problem (1) Small bowel obstruction Current Visit: Yes Code(s): K56.609 - UNSP INTESTNL OBST, UNSP TO PARTIAL VERSUS COMPLETE OBST Status: Acute - Plan Plan: Ms. Jones is a 78 y/o female with PMH of HTN, hyperlipidemia, COPD, ITP with splenectomy, uterine cancer post hysterectomy, anxiety/depression , recent subarachnoid hemorrhage and bowel resection with resultant ileostomy for ischemia and necrosis, who remains on the surgical floor. Pt presented on with complaints of abd pain and weakness and initially had high ostomy output causing hypokalemia and hypomagnesium. CT and vomiting revealed SBO which subsequently spontaneously resolved and NG tube was removed on 05/01. Ostomy output is better manage now, with 125 mL overnight and patient denies any nausea, vomiting, and is tolerating her diet well. In light of improving symptoms, neg. blood cultures, and downward trending WBC, zosyn was discontinued yesterday and replaced with Augmentin. However, today's CBC shows marked increase in leukocytosis (19.9 was 14.2 yesterday), so consider switching back to zosyn for broad coverage. Additionally, in light of rising creatinine (1.20 - has been < 1.0), and slight hypokalemia (3.4), we need to reestablish IV access, which was pulled yesterday following an infiltration, and start NS w/ 20 mEq KCl at 125 mL/hour. Needs magnesium as it's low today at 1.3 (was 1.9 yesterday). Consult farm general manager to help address dietary concerns/ compliance (low albumin/globulin ratio), as well as PT. Repeat CBC, CMP in the morning, continue to encourage eating, and ambulation. Regarding her chronic back pain, consider replacing fentanyl patch, but discuss with family as there previous concerns about AMS. Otherwise, manage inpatient pain with tramadol and refer to her outpatient pain management physician (Dr. Montesinos?) who she regularly sees for injections. As per above except: Although I am not certain of the cause of her leukocytosis, I doubt there is any current active infectious etiology. I would certainly not restart her IV antibiotics and would probably recommend discontinuing her oral antibiotics unless we know of an infection that we are treating. Continue electrolyte assessment and ostomy output treatment per gastroenterology and primary care. She does not appear to require surgical input at this time. I will check on her again in a few days if she is still in the hospital. In light of her age and her underlying medical condition, I doubt she will ever be a good candidate for ileostomy reversal. I suspect that doing so would leave her with ongoing problems with diarrhea.
[2019-05-03 08:58] LABS: Calcium 8.8 mg/dL (7.8-10.44); Chloride 100 mmol/L (98-107); Potassium 3.3 mmol/L (3.5-5.1); Sodium 138 mmol/L (136-145)
[2019-05-03 08:59] LABS: Glucose 87 mg/dL (83-110)
[2019-05-03 09:00] LABS: Anion Gap 16 mmol/L (10-20); Carbon Dioxide 25 mmol/L (23-31)
[2019-05-03] MEDS ORDERED: Lidocaine 5% Patch TD SCH (09:00)
[2019-05-03] MEDS ORDERED: Magnesium 2 GM/50 ML 2 GM in Premix Bag 1 BAG IVPB SCH (09:00)
[2019-05-03 09:02] LABS: Calc. Creatinine Clearance 45 mL/min (70-130); Estimated GFR-MDRD 47
[2019-05-03 09:03] LABS: BUN (Urea Nitrogen) 14 mg/dL (9.8-20.1)
--- NOTE | 2019-05-03 09:37 | PRG ---
DATE OF SERVICE: 05/02/2019 SUBJECTIVE: Ms. Jones has had no further vomiting since her NG tube is removed. She is on a heart-healthy diet, low-salt. She is not sure how much output she has had, although she feels like it is less than it had been in the past. She denies any abdominal pain. She complains of back pain. She asked about seeing a dietitian again. States she does not remember what she is supposed to eat or not eat or kind of a diet she is supposed to be on, although she understands and she has avoided eating the broccoli that is on the tray, and fortunately, she understands that pastas and rice are actually good thing she can eat, and I reassured her that is actually correct. Since her last visit when I saw her, she had to fight a fall with a subarachnoid bleed. It is unclear if there is some component of what she recalls are her previous dietitian exchanges as there was quite intensive education at last visit. It does seem that she went home initially to her home apartment and then moved into an assisted living situation. It is unclear who is preparing the foods in that situation or if she can have a specialized diet in that situation. It seems that she does not. I talked to the nurse. Consult to be made for dietitian for tomorrow. We have also been addressing her back pain with her primary team. MEDICATIONS: 1. Albuterol. 2. Augmentin. 3. Lipitor. 4. Questran. 5. Cymbalta. 6. Imodium. 7. Lopressor. 8. Zofran. 9. Protonix IV daily. 10. Lyrica is on hold. 11. Phenergan p.r.n. 12. Fibers on hold. 13. Restoril. 14. Demadex 20 mg daily. 15. Ultram. PHYSICAL EXAMINATION: VITAL SIGNS: Temperature is 97.2, she has been afebrile, pulse 90, blood pressure 113/74. In's and out's, 265 mL of recorded output yesterday. GENERAL: She is sitting up at side of the bed, eating. She seems to be alert and oriented. LUNGS: Clear. BACK: Tender in low back, but there is no overt point tenderness. ABDOMEN: Soft. Bowel sounds are positive. Ostomy is minimal output. LABORATORY DATA: White count 14.2, hemoglobin 13.1, platelet count 274. Sodium 147, potassium 3.9, BUN 13, creatinine 0.9, phosphorus 4.2, magnesium 1.9. ASSESSMENT: 1. High ostomy output. This was resolved at last visit with strict adherence to a low-residue lactose-free anti-dumping diet to the point where she actually did not even need much Lomotil. At that time, she was receiving some Questran and Colestid at that time. She was still on fentanyl patch that has been removed and that may affect some gastrointestinal motility. 2. Low back pain. She may need to go back on her fentanyl patch. I would defer that to her primary service. 3. Dietary compliance. It is very difficult for her to understand. It was explained to her and her daughter in detail by the dietitian at the last admission. She was in the hospital for 3 days when I saw her for high ostomy output, and from 3 days before discharge, she was able to maintain hydration and electrolyte concentrations with minimal outputs on a diet. I suspect her going out of the hospital when the drill runner helper is able to be controlled this well. That is where we are having problems. We will have the dietitian come see her again. We will change her diet that has been written here as she is on a heart-healthy, 2 g sodium diet. I think though when she is discharged, she is going to need to be in a facility where there can be strict dietary control. Job ID: [id number]
[2019-05-03] MEDS: Torsemide 20 MG TAB PO SCH (11:00)
[2019-05-03] MEDS: Metoprolol Tartrate 25 MG TAB PO SCH ×2 (11:00→20:38)
[2019-05-03] MEDS: DULoxetine 60 MG CAP PO SCH (11:00)
[2019-05-03] MEDS: Lidocaine Patch Removal TOP SCH (11:01)
[2019-05-03] MEDS: Loperamide HCl 2 MG CAP PO SCH ×2 (11:01→20:37)
[2019-05-03] MEDS: Cholestyramine/Aspartame 4 gm Packet PO SCH (11:02)
--- NOTE | 2019-05-03 11:17 | PDOC.HOSPP ---
- Subjective Encounter Date: 05/03/19 Encounter Time: 10:45 Subjective: osteomy output 125ml o/n. talked to the pt that we need midline, as wbcs up and mag low and we need to titrate aggressively, restart IV abx- zosy. pt is agreeable for midline, as hard stick. per dtr, they dont want her on fentanyl patch. tramadol as needed or percocet. - Objective Vital Signs & Weight: Vital Signs (12 hours) Temp Pulse Resp BP Pulse Ox 05/03/19 07:54 97.4 F L 95 18 105/64 98 Weight Weight 154 lb 12.8 oz I&O: 05/02/19 05/03/19 05/04/19 06:59 06:59 06:59 Intake Total 740 Output Total 1300 125 Balance -1300 615 Result Diagrams: 05/03/19 05:03 05/03/19 08:26 Hospitalist ROS - Medication Medications: Active Medications Generic Name Dose Route Start Last Admin Trade Name Freq PRN Reason Stop Dose Admin Acetaminophen 650 mg 04/27/19 01:39 04/28/19 10:16 Tylenol PO 650 mg Q6H PRN Administration Mild Pain (1-3)/ FEVER Hydrocodone Bitart/Acetaminophen 1 tab 05/02/19 20:10 05/02/19 20:22 Lee 5/325 PO 1 tab Q4H PRN Administration Pain 4-5 Albuterol/Ipratropium 3 ml 04/27/19 19:00 05/03/19 07:06 Duoneb NEB Not Given [id number] MITCH Atorvastatin Calcium 10 mg 04/27/19 21:00 05/02/19 20:21 Lipitor PO 10 mg HS MITCH Administration Cholestyramine Resin 4 gm 04/29/19 22:00 05/03/19 11:02 Questran Light PO 4 gm 1000,2200 MITCH Administration Duloxetine HCl 60 mg 04/28/19 09:00 05/03/19 11:00 Cymbalta PO 60 mg DAILY MITCH Administration Promethazine HCl 12.5 mg/ 50.5 mls @ 202 mls/hr 04/29/19 22:03 04/30/19 05:21 Sodium Chloride IVPB 50.5 mls Q6H PRN Administration Nausea Lidocaine 1 patch 05/02/19 21:00 05/02/19 21:03 Lidoderm 5% Patch TD 1 patch 2100 MITCH Administration Loperamide HCl 2 mg 04/27/19 21:00 05/03/19 11:01 Imodium PO 2 mg BID MITCH Administration Metoprolol Tartrate 12.5 mg 04/27/19 21:00 05/03/19 11:00 Lopressor PO 12.5 mg BID MITCH Administration Miscellaneous Medication 1 each 05/03/19 09:00 05/03/19 11:01 Lidocaine Patch Removal TOP 1 each 0900 MITCH Administration Ondansetron HCl 4 mg 04/26/19 22:50 04/29/19 19:48 Zofran IVP 4 mg Q6H PRN Administration Nausea/Vomiting Pantoprazole Sodium 40 mg 05/02/19 09:00 05/02/19 09:42 Protonix IVP 40 mg DAILY MITCH Administration Pregabalin 75 mg 04/28/19 15:00 04/30/19 10:28 Lyrica PO Not Given TID [facility] Psyllium Hydrophilic Mucilloid 1 pk 04/28/19 09:00 04/30/19 10:29 Metamucil PO Not Given DAILY [facility] Sodium Chloride 10 ml 05/02/19 21:00 05/03/19 11:02 Flush - Normal Saline IVF Not Given Q12HR [facility] Sumatriptan Succinate 50 mg 04/27/19 14:44 04/29/19 08:33 Imitrex PO 50 mg Q4H PRN Administration Migraine Headache Temazepam 30 mg 04/27/19 21:00 05/02/19 20:22 Restoril PO 30 mg HS MITCH Administration Torsemide 20 mg 04/28/19 09:00 05/03/19 11:00 Demadex PO 20 mg DAILY MITCH Administration Tramadol HCl 50 mg 04/27/19 16:32 05/02/19 17:20 Ultram PO 50 mg Q6H PRN Administration Moderate to Severe Pain (6-10) - Exam General Appearance: NAD, awake alert Eye: PERRL, anicteric sclera ENT: normocephalic atraumatic Neck: supple Heart: RRR Respiratory: CTAB, no wheezes Gastrointestinal: normal bowel sounds Skin: normal turgor Neurological: cranial nerve grossly intact, no focal deficits Hosp A/P - Plan Dehydration [pt does takes 8 cups of water daily.?, per dtr]. Leukocytosis without source for infectoin - CT -abd and cXR non-revealing. --cw hydration - on diet --wbcs improving. -bl cx of 7th - NGSF - on CTX---> as tessy neg., swtich to PO augmentin hx of abd sux -s/p osteomy - pt does takes 8 cups of water daily. - per famly request, requested GI consult. -appreciate their help - d/w RN - will monitor ileostomy output Hyponatremia Hypokalemia -being replaced w.. NS -K improved.-------------> will check Mag level as well as K consistently being on the low side. -5th Mag 1.5 restarted home meds. Lives in assisted living. May need more help. dtr - is a PTherapist. 10th - Leukocytosis --etiol unknow- cxr neg UA done 2 days prior - no acitive sn of infection -on augmentin -pending CRP -likley inflammatory process,a s clinically no sn of infection. - nutritional/telemarketing agent c/s -per GI - she does not have high ostomy output. K is normalizing. transfer to assisted living when medically more stable PT consulted. 11th Severe SBO -NGT in place and draining bilious; nPO and ice chips ok. -monitor lytes -appreciate the help from GI. leukocytosis -trending down. -escalated abx to cover for GNR as well until wbcs trends down -if temp, then we need to get blood culture and 7th blood cx neg. pt's all qs answered. 12th NGT around 500ml fluid, y'day was bilious, ileostomy around 275ml/ -just completed gastrograffin study. -plan to remv NGT and starts CLD Hypokalemia =-as she is NPO, in IVForm to replace goal around 4. -am labs. 13th Advancing the diet to [facility] soft diet IV infilteration pt is indeterminate getting another IV access /or midline. WBCs tredning down so can hold off on zosyn. most of other meds are PO, which we can continue. 14th we need midline, as wbcs up and mag low and we need to titrate aggressively, -restart IV abx- zosyn and IVF NS + K at 125ml/hr - pt is agreeable for midline, as hard stick. - per dtr, they dont want her on fentanyl patch. tramadol as needed or percocet. -appreciate the help from surgery and GI greatly.
[2019-05-03] MEDS: NS 0.9% w/ 20 MEQ KCL 1,000 ML/1,000 ML BAG IV SCH ×3 (13:21→23:36)
[2019-05-03] MEDS: Pantoprazole 40 MG VIAL IVP SCH (13:22)
[2019-05-03] MEDS: Piperacillin/Tazobactam 3.375 GM in Sodium Chloride 0.9% 100 ML IVPB SCH ×2 (13:22→17:24)
[2019-05-03] MEDS ORDERED: Opium Tincture 10% (1ml Charge) PO PRN (15:28)
--- NOTE | 2019-05-03 15:54 | PRG ---
DATE OF SERVICE: 05/03/2019 SUBJECTIVE: Ms. Jones remains in the hospital. I had seen her in regard to possible small-bowel obstruction on the . A small-bowel follow-through on the was negative and her nasogastric tube was removed. She has advanced her diet since then unremarkably. She is tolerating solid food. Her ileostomy has been working well. She denies any nausea or vomiting. She denies any abdominal pain. OBJECTIVE: VITAL SIGNS: She is afebrile, pulse is in the 90s, blood pressure is 120/77. ABDOMEN: Soft, nontender. Bowel sounds are present and normoactive. Ileostomy is functioning appropriately in the right lower quadrant. LABORATORY DATA: Her white blood cell count today is 19.9, hemoglobin is 12. Basic metabolic panel reveals a diminished potassium of 3.3 with a creatinine of 1.1. ASSESSMENT: The patient is stable from a surgical standpoint. Her ileostomy is functioning well. I am not certain why her white blood cell count is elevated, but she shows no symptoms of any acute infection. I would be inclined to discontinue her antibiotics as I am not certain what we are treating at this point. She needs continued monitoring to try and control her ileostomy output. Nutritional/dietary input to try to keep her on appropriate diet. There are no surgical indications. I will therefore see her in the future on a p.r.n. basis. Please do not hesitate to notify me if I may be of further assistance. Job ID: [id number]
--- NOTE | 2019-05-03 16:33 | PRG ---
DATE OF SERVICE: 05/03/2019 SUBJECTIVE: Ms. Jones states she feels well. Nurses report that she has had some problems with ostomy. They were unable to catch all the output. They suspected it is remaining high. The nurse reports she had a large smoothie from outside. This was reportedly lactose-free by the family. The dietitian has been by. I made a phone call to them and not been able to get an answer back. The hospitalist has been by and IV antibiotics have been started and made a phone call to the hospitalist and awaiting return phone call. OBJECTIVE: VITAL SIGNS: Temperature is 97.2, pulse 92, blood pressure 120/77. HEENT: Oropharynx is slightly dry. NECK: Supple. LUNGS: Clear. ABDOMEN: Soft, nontender. Ostomy bag is secured. Skin around the ostomy site is fine. EXTREMITIES: No clubbing, cyanosis, or edema. LABORATORY: Sodium is 138, potassium 3.8, BUN and creatinine are 14 and 1.12. White count is 12, platelet count is 279. Differential is normal. ASSESSMENT: 1. Leukocytosis of unclear etiology. There is no evidence of fever. Empiric antibiotics have been started. We defer to the hospitalist on this. 2. Diarrhea. It is really almost impossible to determine what her output has been through her ostomy as the recordings are up and down. I have talked with the nursing staff about this. Initially, there was 2 L and 1 L on the 10th and 11th requirement, but on the 12th and 13th and so far today it only 265 and 125 mL have been recorded. Apparently, there has been some problems with the bag coming off. 3. I have talked with the patient's daughter. I have asked them to stop the Questran as she is concerned that this exacerbates her diarrhea based on a book she has been reading about high output ostomy issues with dietitian and asked about starting her on codeine. I have informed her she was already on some hydrocodone p.r.n. and to put her on scheduled codeine may affect her mental status too much. I have recommended if we are going to stop the Questran, then we start her on deodorized tincture of opium scheduled and she is in agreement with this. PLAN: 1. Monitor electrolytes. 2. Deodorized tincture of opium. 3. Monitor renal function is a measure of hydration. If this drop, she needs IV fluids. 4. Infectious Disease per Internal Medicine. 5. When the patient is ready for discharge, I think it would be very reasonable for her to go to a group home situation where she actually be monitored on a weekly basis and/or any early dehydration could be counter acted or an inpatient rehab facility. The patient's daughter states she works in the inpatient rehab facility in the [place] area and would like to get her there if she could, and I have talked to Joyce the clinical rehabilitation coordinator about this and asked her to talk with Joyce when time comes closer. Dr. Lara will be following the patient over the weekend. Dr. Oliva will return on Monday. Job ID: [id number]
[2019-05-03] MEDS: traMADol HCl 50 MG TAB PO PRN (17:19)
[2019-05-03] MEDS: Lidocaine 5% Patch TD SCH (20:37)
[2019-05-03] MEDS: Atorvastatin Calcium 10 MG TAB PO SCH (20:37)
[2019-05-03] MEDS: HYDROcodone/Acetaminophen 5/325 mg Tablet PO PRN (20:54)
[2019-05-03] MEDS ORDERED: Lidocaine Patch Removal TOP SCH (21:00)
[2019-05-03] MEDS: Temazepam 15 MG CAP PO SCH ×2 (22:25→23:36)
[2019-05-04] MEDS: NS 0.9% w/ 20 MEQ KCL 1,000 ML/1,000 ML BAG IV SCH ×3 (01:15→10:23)
[2019-05-04] MEDS: Piperacillin/Tazobactam 3.375 GM in Sodium Chloride 0.9% 100 ML IVPB SCH ×3 (01:24→16:40)
[2019-05-04 06:02] LABS: #Basophils 0.1 thou/uL (0.0-0.2); #Eosinphils 0.7 thou/uL (0.0-0.7); #Lymphocytes 3.9 thou/uL (1.20-3.40); #Monocytes 0.7 thou/uL (0.11-0.59); #Neutrophils 6.3 thou/uL (1.40-6.50); %Eosinophils 6.2 % (0.0-10.0); %Lymphocytes 33.1 % (21.0-51.0); %Monocytes 6.1 % (0.0-10.0); %Neutrophils 53.7 % (42.0-75.0); Hemoglobin 11.1 g/dL (12.0-16.0); Mean Corpuscular HGB CONC 33.1 g/dL (32.0-36.0); Mean Corpuscular Hemoglobin 29.9 pg (27.0-31.0); Mean Corpuscular Volume 90.4 fL (78.0-98.0); Mean Platelet Volume 10.8 fL (7.4-10.4); Platelet Count 236 thou/uL (130-400); RBC Distribution Width 15.4 % (11.5-14.5); White Blood Cell (WBC) Count 11.8 thou/uL (4.8-10.8)
[2019-05-04] MEDS: Metoprolol Tartrate 25 MG TAB PO SCH ×2 (08:00→20:30)
[2019-05-04] MEDS: Torsemide 20 MG TAB PO SCH (08:00)
[2019-05-04] MEDS: DULoxetine 60 MG CAP PO SCH (08:00)
[2019-05-04] MEDS: Lidocaine Patch Removal TOP SCH (08:01)
[2019-05-04] MEDS: Loperamide HCl 2 MG CAP PO SCH ×2 (08:01→20:30)
[2019-05-04 09:14] LABS: Phosphorus 4.2 mg/dL (2.3-4.7)
[2019-05-04 09:15] LABS: Anion Gap 12 mmol/L (10-20); BUN (Urea Nitrogen) 10 mg/dL (9.8-20.1); Calc. Creatinine Clearance 59 mL/min (70-130); Carbon Dioxide 24 mmol/L (23-31); Chloride 108 mmol/L (98-107); Estimated GFR-MDRD 65; Glucose 90 mg/dL (83-110); Potassium 3.3 mmol/L (3.5-5.1); Sodium 141 mmol/L (136-145)
[2019-05-04] MEDS ORDERED: Potassium Chloride 20 MEQ TAB PO SCH (09:45)
--- NOTE | 2019-05-04 10:00 | RAD ---
Portable frontal chest radiograph: 05/04/2019 COMPARISON: 04/29/2019 HISTORY: Shortness of breath FINDINGS: Stable dorsal column stimulators overlie the mid thoracic spine. Stable mild diffuse increased linear interstitial density with pulmonary hyperinflation. No pneumothorax or pleural fluid. No focal consolidation or alveolar edema. There is atherosclerotic calcification aortic arch. IMPRESSION: Chronic findings as detailed above. No acute findings.
[2019-05-04] MEDS: Pregabalin 75 MG CAP PO SCH ×2 (11:06→20:33)
--- NOTE | 2019-05-04 11:46 | PRG ---
DATE OF SERVICE: 05/04/2019 SUBJECTIVE: Ms. Jones is feeling well. She is not having any abdominal pain. Tolerating her diet. Evidently once they got her ileostomy bag in place again yesterday, output has declined. I still do not have any recorded numbers I can trust, but the patient relates that the bag has only been changed once so far today. There is minimal fluid in the bag right now. OBJECTIVE: VITAL SIGNS: Temperature 97.3, pulse 110, blood pressure 116/55, and oxygen saturation 94% on room air. GENERAL: No acute distress. HEART: Regular rate and rhythm. LUNGS: Clear to auscultation bilaterally. ABDOMEN: Soft and nontender to palpation. Bowel sounds present. There is a small amount of liquid brown stool in the ileostomy bag. EXTREMITIES: No peripheral edema. LABORATORY STUDIES: WBC is down to 11.8, hemoglobin 11.1, and platelets 236. Sodium 141, potassium 3.3, BUN 10, creatinine 0.85, calcium 8.0, and phosphorus 4.2. BNP only 20.9. ASSESSMENT AND PLAN: 1. High-output ileostomy. 2. Dehydration, improved, now with IV fluids, downtrending creatinine. It is still difficult to quantify exactly what her ileostomy output has been as I still do not have good recordings, but it sounds like it has been slowing down over the past day. Dr. Buckley had ordered deodorized tincture of opium yesterday, but it is ordered as needed, and the patient has not yet received any. Questran has been stopped. Electrolytes are essentially stable, getting potassium replaced today. Renal function has significantly improved in the past couple of days with hydration. Continue current management. Tincture of opium can be given if ileostomy output increases again. Job ID: [id number]
--- NOTE | 2019-05-04 13:22 | PDOC.HOSPP ---
- Subjective Subjective: Seen and examined. Patient with concerns of high-output from her ostomy has been on IV fluids and replacing electrolytes aggressively. I ordered the chest x -ray and a BNP to monitor for volume overload. The patient clinically does not have any signs of volume overload and she is breathing comfortably on room air. Time was given for questions, all answered in detail. - Objective Vital Signs & Weight: Vital Signs (12 hours) Temp Pulse Resp BP Pulse Ox 05/04/19 07:46 97.3 F L 110 H 18 116/55 L 94 L 05/04/19 04:00 97.9 F 84 16 118/69 97 Weight Weight 154 lb 12.8 oz I&O: 05/03/19 05/04/19 05/05/19 06:59 06:59 06:59 Intake Total 740 Output Total 125 Balance 615 Result Diagrams: 05/04/19 05:53 05/04/19 08:44 Radiology Reviewed by me: Yes Hospitalist ROS - Review of Systems All other systems reviewed; all pertinent +/- noted in HPI/Subj - Medication Medications: Active Medications Generic Name Dose Route Start Last Admin Trade Name Freq PRN Reason Stop Dose Admin Acetaminophen 650 mg 04/27/19 01:39 04/28/19 10:16 Tylenol PO 650 mg Q6H PRN Administration Mild Pain (1-3)/ FEVER Hydrocodone Bitart/Acetaminophen 1 tab 05/02/19 20:10 05/03/19 20:54 [place] 5/325 PO 1 tab Q4H PRN Administration Pain 4-5 Atorvastatin Calcium 10 mg 04/27/19 21:00 05/03/19 20:37 Lipitor PO 10 mg HS MITCH Administration Duloxetine HCl 60 mg 04/28/19 09:00 05/04/19 08:00 Cymbalta PO 60 mg DAILY MITCH Administration Promethazine HCl 12.5 mg/ 50.5 mls @ 202 mls/hr 04/29/19 22:03 04/30/19 05:21 Sodium Chloride IVPB 50.5 mls Q6H PRN Administration Nausea Piperacillin Sod/Tazobactam 100 mls @ 200 mls/hr 05/03/19 09:00 05/04/19 07: 53 Sod 3.375 gm/ Sodium Chloride IVPB 100 mls Q8H MITCH Administration Potassium Chloride/Sodium Chloride 1,000 ml in 1,000 mls @ 50 mls/hr 05/04/19 09:45 05/04/19 10:23 Ns 0.9% W/ 20 Meq Kcl IV 1,000 mls .Q20H MITCH Administration Lidocaine 1 patch 05/02/19 21:00 05/03/19 20:37 Lidoderm 5% Patch TD 1 patch 2100 MITCH Administration Loperamide HCl 2 mg 04/27/19 21:00 05/04/19 08:01 Imodium PO 2 mg BID MITCH Administration Metoprolol Tartrate 12.5 mg 04/27/19 21:00 05/04/19 08:00 Lopressor PO 12.5 mg BID MITCH Administration Miscellaneous Medication 1 each 05/03/19 09:00 05/04/19 08:01 Lidocaine Patch Removal TOP 1 each 0900 MITCH Administration Ondansetron HCl 4 mg 04/26/19 22:50 04/29/19 19:48 Zofran IVP 4 mg Q6H PRN Administration Nausea/Vomiting Pantoprazole Sodium 40 mg 05/04/19 09:00 05/04/19 07:59 Protonix PO 40 mg DAILY MITCH Administration Pregabalin 75 mg 04/28/19 15:00 05/04/19 11:06 Lyrica PO Not Given TID MITCH Sodium Chloride 10 ml 05/02/19 21:00 05/04/19 08:03 Flush - Normal Saline IVF Not Given Q12HR MITCH Sumatriptan Succinate 50 mg 04/27/19 14:44 04/29/19 08:33 Imitrex PO 50 mg Q4H PRN Administration Migraine Headache Temazepam 30 mg 04/27/19 21:00 05/03/19 23:36 Restoril PO 30 mg HS MITCH Administration Torsemide 20 mg 04/28/19 09:00 05/04/19 08:00 Demadex PO 20 mg DAILY MITCH Administration Tramadol HCl 50 mg 04/27/19 16:32 05/03/19 17:19 Ultram PO 50 mg Q6H PRN Administration Moderate to Severe Pain (6-10) - Exam General Appearance: NAD, awake alert Eye: anicteric sclera ENT: normocephalic atraumatic, moist mucosa Neck: supple, symmetric, no JVD Heart: no murmur, no gallops, no rubs Respiratory: CTAB, no wheezes, no rales, no ronchi, normal chest expansion, no tachypnea Gastrointestinal: soft, non-tender, non-distended, no guarding, no rigidity Gastrointestinal - other findings: Ostomy in position Extremities: no edema Skin: no lesions, no rashes Neurological: cranial nerve grossly intact, no weakness Musculoskeletal: generalized weakness Psychiatric: normal behavior, A&O x 3 Hosp A/P (1) High output ileostomy Code(s): R19.8 - OTH SYMPTOMS AND SIGNS INVOLVING THE DGSTV SYS AND ABDOMEN; Z93.2 - ILEOSTOMY STATUS Status: Acute (2) GM (acute kidney injury) Code(s): N17.9 - ACUTE KIDNEY FAILURE, UNSPECIFIED Status: Acute (3) Dehydration Code(s): E86.0 - DEHYDRATION Status: Acute (4) Hypokalemia Code(s): E87.6 - HYPOKALEMIA Status: Acute (5) Small bowel obstruction Code(s): K56.609 - UNSP INTESTNL OBST, UNSP TO PARTIAL VERSUS COMPLETE OBST Status: Acute - Plan Plan: medical unit gastroenterology consultation, recommendations appreciated will plan to match the output of her ostomy with IV fluid resuscitation replace electrolytes as needed tincture of opium if high-output ostium returns strict ins and outs CXR without volume overload BNP normal GM present on admission, resolved with IV fluids G.I. prophylaxis continue other home medications as able blood pressure control blood sugar control
[2019-05-04] MEDS: Lidocaine 5% Patch TD SCH (20:30)
[2019-05-04] MEDS: Atorvastatin Calcium 10 MG TAB PO SCH (20:30)
[2019-05-04] MEDS: Temazepam 15 MG CAP PO SCH (20:32)
[2019-05-04] MEDS: HYDROcodone/Acetaminophen 5/325 mg Tablet PO PRN (21:57)
[2019-05-05] MEDS: Piperacillin/Tazobactam 3.375 GM in Sodium Chloride 0.9% 100 ML IVPB SCH ×3 (00:08→17:26)
[2019-05-05] MEDS: NS 0.9% w/ 20 MEQ KCL 1,000 ML/1,000 ML BAG IV SCH (04:49)
[2019-05-05 04:59] LABS: #Basophils 0.1 thou/uL (0.0-0.2); #Eosinphils 0.8 thou/uL (0.0-0.7); #Lymphocytes 4.2 thou/uL (1.20-3.40); #Monocytes 0.9 thou/uL (0.11-0.59); #Neutrophils 4.9 thou/uL (1.40-6.50); %Basophils 0.8 % (0.0-1.0); %Eosinophils 7.1 % (0.0-10.0); %Lymphocytes 38.7 % (21.0-51.0); %Neutrophils 45.4 % (42.0-75.0); Hemoglobin 10.5 g/dL (12.0-16.0); Mean Corpuscular Hemoglobin 29.6 pg (27.0-31.0); Mean Corpuscular Volume 92.4 fL (78.0-98.0); Mean Platelet Volume 10.5 fL (7.4-10.4); Platelet Count 217 thou/uL (130-400); RBC Distribution Width 15.3 % (11.5-14.5); Red Blood Cell (RBC) Count 3.56 mill/uL (4.20-5.40); White Blood Cell (WBC) Count 10.8 thou/uL (4.8-10.8)
[2019-05-05] MEDS: Pregabalin 75 MG CAP PO SCH ×5 (08:40→22:37)
[2019-05-05] MEDS: Metoprolol Tartrate 25 MG TAB PO SCH ×2 (08:41→20:06)
[2019-05-05] MEDS: DULoxetine 60 MG CAP PO SCH (08:43)
[2019-05-05] MEDS: Torsemide 20 MG TAB PO SCH (08:43)
[2019-05-05] MEDS: Loperamide HCl 2 MG CAP PO SCH ×2 (08:44→20:07)
[2019-05-05] MEDS: Lidocaine Patch Removal TOP SCH (08:45)
[2019-05-05 09:28] LABS: Anion Gap 15 mmol/L (10-20); BUN (Urea Nitrogen) 9 mg/dL (9.8-20.1); Calc. Creatinine Clearance 61 mL/min (70-130); Calcium 8.9 mg/dL (7.8-10.44); Carbon Dioxide 21 mmol/L (23-31); Chloride 108 mmol/L (98-107); Estimated GFR-MDRD 66; Glucose 67 mg/dL (83-110); Potassium 3.8 mmol/L (3.5-5.1); Sodium 140 mmol/L (136-145)
[2019-05-05 09:34] LABS: Phosphorus 3.1 mg/dL (2.3-4.7)
[2019-05-05] MEDS ORDERED: Opium Tincture 10% (1ml Charge) PO SCH (12:15)
--- NOTE | 2019-05-05 12:16 | PRG ---
DATE OF SERVICE: 05/05/2019 SUBJECTIVE: Ms. Jones is feeling fine. She is tolerating her diet. No abdominal pain. Ileostomy output was documented as 1600 mL over the course of the past day. She did not receive any tincture of opium. OBJECTIVE: VITAL SIGNS: Temperature 97.7, pulse 72, blood pressure 109/68, 98% oxygen saturation on room air. GENERAL: No acute distress. HEART: Regular rate and rhythm. LUNGS: Clear to auscultation bilaterally. ABDOMEN: Bowel sounds are present. Soft, nontender to palpation throughout. Ileostomy bag in the right lower quadrant with liquid brown stool in the bag. EXTREMITIES: No peripheral edema. LABORATORY STUDIES: WBC down to 10.8, hemoglobin 10.5, platelets 217. Sodium 140, potassium 3.8, BUN down to 9, creatinine 0.83, glucose 67, calcium 8.9, phosphorus 3.1, magnesium 1.6. ASSESSMENT AND PLAN: 1. High-output ileostomy. 2. Dehydration, improved. Her ileostomy output was documented as 1600 mL yesterday, this is indeed a bit high. She did not receive any tincture of opium yet. I am going to go ahead and order a one time dose to be given, to see how this affects her output over the next day. Notably, electrolytes are all stable. Renal function, has significantly improved. Dr. Oliva to resume care tomorrow. Job ID: [id number]
--- NOTE | 2019-05-05 12:45 | PDOC.HOSPP ---
- Subjective Encounter Date: 05/05/19 Encounter Time: 12:25 Subjective: f/u for high-output ileostomy now resolving. Receiving Zosyn empirically for intestinal infection but resolving currently. Feels better overall and tolerating po intake. - Objective Vital Signs & Weight: Vital Signs (12 hours) Temp Pulse Resp BP BP Pulse Ox 05/05/19 11:39 97.7 F 72 16 109/68 98 05/05/19 07:50 97.3 F L 78 16 105/63 98 Weight Weight 154 lb 12.8 oz I&O: 05/04/19 05/05/19 05/06/19 06:59 06:59 06:59 Intake Total 1100 240 Output Total 1600 Balance -500 240 Result Diagrams: 05/05/19 04:43 05/05/19 08:56 Additional Labs: Microbiology 04/26/19 18:40 Venous blood - Left Hand Blood Culture - Final NO GROWTH IN 5 DAYS 04/26/19 18:34 Venous blood - Right Arm Blood Culture - Final NO GROWTH IN 5 DAYS Laboratory Tests 05/02/19 05/03/19 05/03/19 05:24 05:03 05:03 WBC 14.2 H 19.9 H Potassium 3.4 L 05/03/19 05/04/19 05/04/19 08:26 05:53 08:44 WBC 11.8 H Potassium 3.3 L 3.3 L Radiology Reviewed by me: Yes (PCXR - no acute infiltrates) Hospitalist ROS - Medication Medications: Active Medications Generic Name Dose Route Start Last Admin Trade Name Freq PRN Reason Stop Dose Admin Acetaminophen 650 mg 04/27/19 01:39 04/28/19 10:16 Tylenol PO 650 mg Q6H PRN Administration Mild Pain (1-3)/ FEVER Hydrocodone Bitart/Acetaminophen 1 tab 05/02/19 20:10 05/04/19 21:57 [place] 5/325 PO 1 tab Q4H PRN Administration Pain 4-5 Atorvastatin Calcium 10 mg 04/27/19 21:00 05/04/19 20:30 Lipitor PO 10 mg HS MITCH Administration Duloxetine HCl 60 mg 04/28/19 09:00 05/05/19 08:43 Cymbalta PO 60 mg DAILY MITCH Administration Promethazine HCl 12.5 mg/ 50.5 mls @ 202 mls/hr 04/29/19 22:03 04/30/19 05:21 Sodium Chloride IVPB 50.5 mls Q6H PRN Administration Nausea Piperacillin Sod/Tazobactam 100 mls @ 200 mls/hr 05/03/19 09:00 05/05/19 09: 10 Sod 3.375 gm/ Sodium Chloride IVPB 100 mls Q8H MITCH Administration Potassium Chloride/Sodium Chloride 1,000 ml in 1,000 mls @ 50 mls/hr 05/04/19 09:45 05/05/19 04:49 Ns 0.9% W/ 20 Meq Kcl IV 1,000 mls .Q20H MITCH Administration Lidocaine 1 patch 05/02/19 21:00 05/04/19 20:30 Lidoderm 5% Patch TD 1 patch 2100 MITCH Administration Loperamide HCl 2 mg 04/27/19 21:00 05/05/19 08:44 Imodium PO 2 mg BID MITCH Administration Metoprolol Tartrate 12.5 mg 04/27/19 21:00 05/05/19 08:41 Lopressor PO 12.5 mg BID MITCH Administration Miscellaneous Medication 1 each 05/03/19 09:00 05/05/19 08:45 Lidocaine Patch Removal TOP 1 each 0900 MITCH Administration Ondansetron HCl 4 mg 04/26/19 22:50 04/29/19 19:48 Zofran IVP 4 mg Q6H PRN Administration Nausea/Vomiting Pantoprazole Sodium 40 mg 05/04/19 09:00 05/05/19 08:44 Protonix PO 40 mg DAILY MITCH Administration Pregabalin 75 mg 04/28/19 15:00 05/05/19 08:40 Lyrica PO 75 mg TID MITCH Administration Sodium Chloride 10 ml 05/02/19 21:00 05/05/19 08:45 Flush - Normal Saline IVF 10 ml Q12HR MITCH Administration Sumatriptan Succinate 50 mg 04/27/19 14:44 04/29/19 08:33 Imitrex PO 50 mg Q4H PRN Administration Migraine Headache Temazepam 30 mg 04/27/19 21:00 05/04/19 20:32 Restoril PO 30 mg HS MITCH Administration Torsemide 20 mg 04/28/19 09:00 05/05/19 08:43 Demadex PO Not Given DAILY MITCH Tramadol HCl 50 mg 04/27/19 16:32 02/14/20 17:19 Ultram PO 50 mg Q6H PRN Administration Moderate to Severe Pain (6-10) - Exam General Appearance: NAD, awake alert Eye: PERRL, anicteric sclera ENT: normocephalic atraumatic, no oropharyngeal lesions Neck: supple, symmetric, no JVD, no thyromegaly Heart: RRR, no gallops, no rubs, normal peripheral pulses Respiratory: CTAB, no wheezes, no rales, no ronchi, normal chest expansion Gastrointestinal: soft, non-tender, non-distended, normal bowel sounds Gastrointestinal - other findings: ostomy in place, liquid stool noted Extremities: no cyanosis, no clubbing Skin: normal turgor, no lesions Neurological: cranial nerve grossly intact, no new deficit Musculoskeletal: normal tone, generalized weakness Psychiatric: normal affect, A&O x 3 Hosp A/P (1) High output ileostomy Code(s): R19.8 - OTH SYMPTOMS AND SIGNS INVOLVING THE DGSTV SYS AND ABDOMEN; Z93.2 - ILEOSTOMY STATUS Status: Acute Plan: Resolving, tincture of opium PRN, low residue diet (2) GM (acute kidney injury) Code(s): N17.9 - ACUTE KIDNEY FAILURE, UNSPECIFIED Status: Acute Plan: Resolving, continue low-volume IVF's (3) Dehydration Code(s): E86.0 - DEHYDRATION Status: Acute Plan: Resolving, encourage increased po intake (4) Hypokalemia Code(s): E87.6 - HYPOKALEMIA Status: Acute Plan: Resolving (5) Small bowel obstruction Code(s): K56.609 - UNSP INTESTNL OBST, UNSP TO PARTIAL VERSUS COMPLETE OBST Status: Acute Plan: Suspected and now resolved - Plan continue antibiotics, PT/OT, social worker school, out of bed/ambulate, DVT proph w/ SCDs Stable overall Continue IV Zosyn another 24h then d/c Continue IVF's another 24h then d/c OOB with PT CM for SNF/rehab options AM lab: BMP, CBC, Mg++, PO3
[2019-05-05] MEDS: Temazepam 15 MG CAP PO SCH (20:02)
[2019-05-05] MEDS: HYDROcodone/Acetaminophen 5/325 mg Tablet PO PRN (20:03)
[2019-05-05] MEDS: Atorvastatin Calcium 10 MG TAB PO SCH (20:05)
[2019-05-05] MEDS: Lidocaine 5% Patch TD SCH (20:07)
[2019-05-05] MEDS: traMADol HCl 50 MG TAB PO PRN (22:37)
--- NOTE | 2019-05-05 23:18 | RAD ---
Exam: One view chest 2 views abdomen HISTORY: Distention. Increasing pain. History of bowel obstruction Comparison 05/04/2019 FINDINGS: 1. View chest: Stable dorsal column stimulators. Atherosclerosis of the aorta. Normal cardiac silhoue tte. Hyperinflation, without consolidation or mass. No pneumothorax ABDOMEN: Redemonstration of postsurgical change in the right lower quadrant. There air-fluid levels, which are nonspecific. There is stable leftward curvature of the lumbar spine. IMPRESSION: 1. No acute cardiopulmonary process. 2. Atherosclerosis 3. Nonspecific bowel gas pattern. Nonspecific air-fluid levels. Correlation made with a small bowel s eries on 05/01/2019 does not demonstrate evidence of a complete bowel obstruction. If there is still concern, consider Gastrografin small bowel to further evaluate. General surgical consultation may be beneficial. Transcribed Date/Time: 05/05/2019 11:29 PM
[2019-05-05 23:19] LABS: ALT (SGPT) 12 U/L (8-55); AST (SGOT) 22 U/L (5-34); Albumin 3.6 g/dL (3.4-4.8); Alkaline Phosphatase 49 U/L (40-110); Anion Gap 11 mmol/L (10-20); BUN (Urea Nitrogen) 8 mg/dL (9.8-20.1); Bilirubin, Total 0.2 mg/dL (0.2-1.2); Calc. Creatinine Clearance 63 mL/min (70-130); Calcium 8.9 mg/dL (7.8-10.44); Carbon Dioxide 29 mmol/L (23-31); Chloride 105 mmol/L (98-107); Estimated GFR-MDRD 69; Globulin 3.4 g/dL (2.4-3.5); Glucose 87 mg/dL (83-110); Potassium 4.1 mmol/L (3.5-5.1); Sodium 141 mmol/L (136-145)
[2019-05-06] MEDS: Piperacillin/Tazobactam 3.375 GM in Sodium Chloride 0.9% 100 ML IVPB SCH ×3 (00:06→16:09)
[2019-05-06] MEDS: HYDROcodone/Acetaminophen 5/325 mg Tablet PO PRN ×3 (00:07→21:53)
[2019-05-06] MEDS: NS 0.9% w/ 20 MEQ KCL 1,000 ML/1,000 ML BAG IV SCH ×2 (01:08→20:35)
[2019-05-06 05:15] LABS: #Basophils 0.1 thou/uL (0.0-0.2); #Eosinphils 0.6 thou/uL (0.0-0.7); #Lymphocytes 3.6 thou/uL (1.20-3.40); #Monocytes 1.2 thou/uL (0.11-0.59); %Basophils 0.5 % (0.0-1.0); %Eosinophils 4.1 % (0.0-10.0); %Lymphocytes 23.3 % (21.0-51.0); %Monocytes 7.6 % (0.0-10.0); %Neutrophils 64.4 % (42.0-75.0); Hemoglobin 10.9 g/dL (12.0-16.0); Mean Corpuscular HGB CONC 31.6 g/dL (32.0-36.0); Mean Corpuscular Hemoglobin 29.1 pg (27.0-31.0); Mean Platelet Volume 11.1 fL (7.4-10.4); Platelet Count 227 thou/uL (130-400); RBC Distribution Width 15.4 % (11.5-14.5); Red Blood Cell (RBC) Count 3.73 mill/uL (4.20-5.40); White Blood Cell (WBC) Count 15.6 thou/uL (4.8-10.8)
[2019-05-06] MEDS: DULoxetine 60 MG CAP PO SCH (08:28)
[2019-05-06] MEDS: Loperamide HCl 2 MG CAP PO SCH (08:28)
[2019-05-06] MEDS: Torsemide 20 MG TAB PO SCH (08:28)
[2019-05-06] MEDS: Metoprolol Tartrate 25 MG TAB PO SCH ×2 (08:28→20:36)
[2019-05-06] MEDS: Pregabalin 75 MG CAP PO SCH ×3 (08:29→20:37)
[2019-05-06] MEDS: Lidocaine Patch Removal TOP SCH (08:30)
[2019-05-06] MEDS: Opium Tincture 10% (1ml Charge) PO SCH ×2 (08:31→13:00)
[2019-05-06 09:27] LABS: Anion Gap 13 mmol/L (10-20); BUN (Urea Nitrogen) 7 mg/dL (9.8-20.1); Calc. Creatinine Clearance 67 mL/min (70-130); Calcium 8.7 mg/dL (7.8-10.44); Carbon Dioxide 23 mmol/L (23-31); Chloride 109 mmol/L (98-107); Estimated GFR-MDRD 73; Glucose 80 mg/dL (83-110); Potassium 3.8 mmol/L (3.5-5.1); Sodium 141 mmol/L (136-145)
--- NOTE | 2019-05-06 15:01 | PRG ---
DATE OF SERVICE: 05/06/2019 SUBJECTIVE: The patient had a bad night last night. She was given her first dose of 0.6 mL of tincture of opium yesterday afternoon. She felt severely bloated without any ileostomy output. There was no nausea or vomiting. Abdominal x-ray performed showed some air-fluid levels, but no bowel or gas distention. Subsequently, she put out a total of 650 mL in her ileostomy from the night clerk auditor. Currently, she feels fine. She is ambulatory to 350 feet. She has no nausea, vomiting, or abdominal pain at the present time. So far, she has put out 450 mL in her ileostomy over the last 10 hours. OBJECTIVE: VITAL SIGNS: Temperature is 97.2, blood pressure 110/65, pulse of 79. GENERAL: She is alert, does not appear in distress. HEENT: Exam shows anicteric sclerae. Oropharynx is moist. CV: Exam shows normal S1 and S2. Regular rate and rhythm. CHEST: Exam shows breath sounds. ABDOMEN: Soft. No distention. No tympany. She has bowel sounds. Ileostomy bag with dark greenish/brownish liquid without any blood. EXTREMITIES: Exam shows no edema. LABORATORY DATA: WBCs 15.6, hemoglobin 10.9, platelet count of 227. Electrolytes are within normal range. Phosphorus is 3.0, potassium is 3.8. ASSESSMENT: 1. High ileostomy output. A tincture of opium appears to significantly slow down her ileostomy output. Much of it is also dependent on her oral intake and what she eats. 2. Small bowel obstruction, resolved. 3. Electrolyte derangement, corrected. RECOMMENDATIONS: 1. We will try a lower dose of tincture of opium this afternoon, 0.2 mL and observe overnight shift. If she does well, we will repeat, and we will titrate the medication in the morning. 2. Placement. Job ID: [id number] MTDD
--- NOTE | 2019-05-06 15:13 | PDOC.HOSPP ---
- Subjective Encounter Date: 05/06/19 Encounter Time: 15:10 Subjective: f/u for high-output ileostomy now slowing with supportive mgmt and tincture of opium. Feels better overall and ambulated over 300ft. - Objective Vital Signs & Weight: Vital Signs (12 hours) Temp Pulse Resp BP BP Pulse Ox 05/06/19 07:07 97.6 F 80 18 124/70 97 05/06/19 03:57 97.2 F L 79 20 110/65 96 Weight Weight 154 lb 12.8 oz I&O: 05/05/19 05/06/19 05/07/19 06:59 06:59 06:59 Intake Total 1100 3290 240 Output Total 1600 1400 750 Balance -500 1890 -510 Result Diagrams: 05/06/19 04:47 05/06/19 09:02 Additional Labs: Microbiology 04/26/19 18:40 Venous blood - Left Hand Blood Culture - Final NO GROWTH IN 5 DAYS 04/26/19 18:34 Venous blood - Right Arm Blood Culture - Final NO GROWTH IN 5 DAYS Laboratory Tests 05/02/19 05/03/19 05/03/19 05:24 05:03 05:03 WBC 14.2 H 19.9 H Potassium 3.4 L 05/03/19 05/04/19 05/04/19 08:26 05:53 08:44 WBC 11.8 H Potassium 3.3 L 3.3 L Radiology Reviewed by me: Yes (KUB - non-specific bowel gas pattern) Hospitalist ROS - Medication Medications: Active Medications Generic Name Dose Route Start Last Admin Trade Name Freq PRN Reason Stop Dose Admin Acetaminophen 650 mg 04/27/19 01:39 04/28/19 10:16 Tylenol PO 650 mg Q6H PRN Administration Mild Pain (1-3)/ FEVER Hydrocodone Bitart/Acetaminophen 1 tab 05/02/19 20:10 05/06/19 00:07 [place] 5/325 PO 1 tab Q4H PRN Administration Pain 4-5 Atorvastatin Calcium 10 mg 04/27/19 21:00 05/05/19 20:05 Lipitor PO 10 mg HS MITCH Administration Duloxetine HCl 60 mg 04/28/19 09:00 05/06/19 08:28 Cymbalta PO 60 mg DAILY MITCH Administration Promethazine HCl 12.5 mg/ 50.5 mls @ 202 mls/hr 04/29/19 22:03 04/30/19 05:21 Sodium Chloride IVPB 50.5 mls Q6H PRN Administration Nausea Piperacillin Sod/Tazobactam 100 mls @ 200 mls/hr 05/03/19 09:00 05/06/19 09: 41 Sod 3.375 gm/ Sodium Chloride IVPB 100 mls Q8H MITCH Administration Potassium Chloride/Sodium Chloride 1,000 ml in 1,000 mls @ 50 mls/hr 05/04/19 09:45 05/06/19 01:08 Ns 0.9% W/ 20 Meq Kcl IV 1,000 mls .Q20H MITCH Administration Lidocaine 1 patch 05/02/19 21:00 05/05/19 20:07 Lidoderm 5% Patch TD 1 patch 2100 MITCH Administration Loperamide HCl 2 mg 04/27/19 21:00 05/06/19 08:28 Imodium PO 2 mg BID MITCH Administration Metoprolol Tartrate 12.5 mg 04/27/19 21:00 05/06/19 08:28 Lopressor PO 12.5 mg BID MITCH Administration Miscellaneous Medication 1 each 05/03/19 09:00 05/06/19 08:30 Lidocaine Patch Removal TOP 1 each 0900 MITCH Administration Ondansetron HCl 4 mg 04/26/19 22:50 04/29/19 19:48 Zofran IVP 4 mg Q6H PRN Administration Nausea/Vomiting Pantoprazole Sodium 40 mg 05/04/19 09:00 05/06/19 08:29 Protonix PO 40 mg DAILY MITCH Administration Pregabalin 75 mg 04/28/19 15:00 05/06/19 14:21 Lyrica PO 75 mg TID MITCH Administration Sodium Chloride 10 ml 05/02/19 21:00 05/06/19 08:32 Flush - Normal Saline IVF 10 ml Q12HR MITCH Administration Sumatriptan Succinate 50 mg 04/27/19 14:44 04/29/19 08:33 Imitrex PO 50 mg Q4H PRN Administration Migraine Headache Temazepam 30 mg 04/27/19 21:00 05/05/19 20:02 Restoril PO 30 mg HS MITCH Administration Torsemide 20 mg 04/28/19 09:00 05/06/19 08:28 Demadex PO Not Given DAILY MITCH Tramadol HCl 50 mg 04/27/19 16:32 05/05/19 22:37 Ultram PO 50 mg Q6H PRN Administration Moderate to Severe Pain (6-10) - Exam General Appearance: NAD, awake alert Eye: PERRL, anicteric sclera ENT: normocephalic atraumatic, no oropharyngeal lesions Neck: supple, symmetric, no JVD, no thyromegaly, no lymphadenopathy Heart: RRR, no gallops, no rubs, normal peripheral pulses Respiratory: CTAB, no wheezes, no rales, no ronchi, normal chest expansion Gastrointestinal: soft, non-tender, non-distended, normal bowel sounds Gastrointestinal - other findings: + ostomy in place with liquid stool Extremities: no cyanosis, no clubbing, no edema Skin: normal turgor, no lesions Neurological: cranial nerve grossly intact, no new deficit Musculoskeletal: normal tone, generalized weakness Psychiatric: normal affect, A&O x 3 Hosp A/P (1) High output ileostomy Code(s): R19.8 - OTH SYMPTOMS AND SIGNS INVOLVING THE DGSTV SYS AND ABDOMEN; Z93.2 - ILEOSTOMY STATUS Status: Acute Plan: Stable currently, continue to monitor output (2) GM (acute kidney injury) Code(s): N17.9 - ACUTE KIDNEY FAILURE, UNSPECIFIED Status: Acute Plan: Resolving (3) Dehydration Code(s): E86.0 - DEHYDRATION Status: Acute Plan: Resolving (4) Hypokalemia Code(s): E87.6 - HYPOKALEMIA Status: Acute Plan: Resolving, continue current IVF's another 24h (5) Small bowel obstruction Code(s): K56.609 - UNSP INTESTNL OBST, UNSP TO PARTIAL VERSUS COMPLETE OBST Status: Acute Plan: Resolving - Plan continue antibiotics, PT/OT, clinical social work therapist, out of bed/ambulate, DVT proph w/ SCDs Stable overall Continue IV Zosyn another 24h then d/c Continue IVF's another 24h then d/c OOB with PT CM for SNF/rehab options
[2019-05-06] MEDS ORDERED: Opium Tincture 10% (1ml Charge) PO SCH ×2 (16:00)
[2019-05-06] MEDS ORDERED: Magnesium Sulfate 3 GM in Sodium Chloride 0.9% 100 ML IVPB SCH (16:15)
--- NOTE | 2019-05-06 16:47 | PRG ---
DATE OF SERVICE: 05/06/2019 SUBJECTIVE: Over the weekend, Ms. Jones received the deodorized tincture of opium once. She complained, did not want to take it again because it made her bloat too much. OBJECTIVE: VITAL SIGNS: Temperature 97.2. She was afebrile over the weekend, pulse 80, blood pressure 124/70. She states that she is trying to eat a regular meal and lunch and less in the evening. She does get up with physical therapy, walked 300 feet today. She continues to be on IV fluids at 75 mL an hour. Ostomy output was recorded at 1500 hours for 24 hours at 7 yesterday morning and 1400 for 24 hours this morning. ABDOMEN: Soft and nontender. White count 15.6, hemoglobin 10.9, platelet count 227. Electrolytes normal. BUN and creatinine are 7 and 0.6. Magnesium was 1.5 and replaced. Phosphorus was 3. ASSESSMENT: 1. High ostomy output, high ileostomy output. The dietitian is working with her. We started deodorized tincture of opium and stopped. Questran at the request of the patient's daughter on Monday, although patient is refusing to take deodorized tincture of opium, she states it makes her bloat up too much. Dr. Oliva was going to order a lower dose of that for today, but the hospital does not have it until tomorrow. 2. Leukocytosis of unclear etiology. I think this is probably more related to dehydration. Blood cultures have been negative. Urine cultures are negative. 3. Chronic pain. 4. Suspected mild dementia. RECOMMENDATION: 1. Discontinue deodorized tincture of opium as the hospital does not have it available anyway. 2. Discontinue Zosyn after a course is completed. There has been no documented infection. 3. Loperamide 2 mg p.o. b.i.d. 4. hour with 20 mEq of potassium. 5. Continue IV fluids until we are sure that she can maintain hydration off them, not sure she can at this time. We will stop the loperamide and place her on Lomotil 2 q.i.d. as deodorized tincture of opium is not available. Job ID: [id number]
[2019-05-06] MEDS: Diphenoxylate HCl/Atropine Tablet PO SCH ×2 (17:31→21:54)
[2019-05-06] MEDS: Lidocaine 5% Patch TD SCH (20:35)
[2019-05-06] MEDS: Atorvastatin Calcium 10 MG TAB PO SCH (20:36)
[2019-05-06] MEDS: Temazepam 15 MG CAP PO SCH (20:37)
[2019-05-07] MEDS: Piperacillin/Tazobactam 3.375 GM in Sodium Chloride 0.9% 100 ML IVPB SCH ×2 (00:50→09:06)
[2019-05-07] MEDS: traMADol HCl 50 MG TAB PO PRN (00:54)
[2019-05-07] MEDS ORDERED: Mag-Al 1200 mg/1200 mg/30 ML UDCUP PO SCH (02:15)
[2019-05-07] MEDS: Diphenoxylate HCl/Atropine Tablet PO SCH ×4 (04:30→21:41)
--- NOTE | 2019-05-07 06:36 | PDOC.GSPN ---
Surgery Progress Note: Subj - Subjective Patient reports: feels better, voiding w/o difficulty Narrative: Pt was stable overnight w/ no acute events and no febrile episodes. Pt complained of abdominal distension, some N, and heartburn since receiving opium on 05/05, but said symptoms have slightly improved. Pt had a NBNB Vx1 at 10pm last night, and hasn't had anymore episode after given zofran. Pt had 900mL loose brown ileostomy output overnight. Pt is on 50mL/hr NS w/ 20mEq KCl and zosyn, but both may be dc today depending on evaluation. Pt has been walking to bathroom by herself. Surgery Progress Note: Obj - Vital signs Vital signs: Vital Signs - Most Recent Temp Pulse Resp BP Pulse Ox 97.3 F L 83 20 134/79 98 05/06/19 19:41 05/06/19 19:41 05/06/19 19:41 05/06/19 19:41 05/06/19 19:41 - Physical Exam General: no distress, other (moderate chronic back pain) Cardiovascular: regular rate and rhythm Respiratory: clear to auscultation, normal respiratory effort Abdomen: soft, nondistended, positive bowel sounds, tender (pt said abdomen is diffusely tender to palpation, but only slightly) Integumentary: no rash, other (palpable brisk pulse upstrokes bilat., dry skin) Psychiatric: oriented to time, oriented to person, oriented to place Wound: ostomy/colostomy (had loose brown stool in bag) Surgery Progress Note: Results - Labs Result Diagrams: 05/06/19 04:47 05/06/19 09:02 Surgery Progress Note: A/P - Problem (1) Small bowel obstruction Current Visit: Yes Code(s): K56.609 - UNSP INTESTNL OBST, UNSP TO PARTIAL VERSUS COMPLETE OBST Status: Acute - Plan Plan: Pt is a 78yo CF w/ sig. PSH of cholecystectomy, appendectomy, splenectomy, and ex lap on 02/17/19 for sepsis which resulted in subtotal colectomy w/ ileostomy for ischemic bowel. Pt presented on 04/26/19 for complaints of abd. pain and weakness. Pt had NBNB Vx1 yesterday, w/ no recurrence due to zofran. Pt complained of abd. distension, N, and heartburn post opium given on 05/05, pt had abd. series on the same day, w/ no obstructions found. Pt had 900mL loose brown ileostomy output overnight. Pt denied F, cough, nasal drainage, and urinary symptoms, but pt has had a rebound of leukocytosis of unknown origin from 10.8 (05/05) to 15.6H (05/06). Pt is currently still on 50mL/hr of NS w/ 20mEq KCl & zosyn. Pt had low K & Mg initially, but both have returned to normal values. Pt had dry skin on PE, but pt's BP returned to 134/79 from previous hypotension. Pt has been able to walk to bathroom as well as multiple laps around the quiles. Continue current fiber restricted diet, potentially dc NS & abx w/ further evaluation, watch I&O closely to prevent dehydration, and monitor for symptoms improvement.
[2019-05-07] MEDS: DULoxetine 60 MG CAP PO SCH (08:54)
[2019-05-07] MEDS: Metoprolol Tartrate 25 MG TAB PO SCH ×2 (08:58→20:27)
[2019-05-07] MEDS: Pregabalin 75 MG CAP PO SCH ×3 (09:01→20:27)
[2019-05-07] MEDS: Lidocaine Patch Removal TOP SCH (09:05)
[2019-05-07] MEDS: HYDROcodone/Acetaminophen 5/325 mg Tablet PO PRN ×2 (13:31→20:35)
--- NOTE | 2019-05-07 14:42 | PDOC.HOSPP ---
- Subjective Encounter Date: 05/07/19 Encounter Time: 14:30 Subjective: f/u for abd pain and high-output ileostomy. Feels better overall and tolerating po intake. Initially bloated after dose of tincture of opium but resolved currently. Awaiting SNF/rehab options in [facility]. - Objective Vital Signs & Weight: Vital Signs (12 hours) Temp Pulse Resp BP Pulse Ox 05/07/19 07:13 97.3 F L 82 18 124/75 94 L Weight Weight 154 lb 12.8 oz I&O: 05/06/19 05/07/19 05/08/19 06:59 06:59 06:59 Intake Total 3290 3755 Output Total 1400 2250 Balance 1890 1505 Result Diagrams: 05/06/19 04:47 05/06/19 09:02 Additional Labs: Microbiology 04/26/19 18:40 Venous blood - Left Hand Blood Culture - Final NO GROWTH IN 5 DAYS 04/26/19 18:34 Venous blood - Right Arm Blood Culture - Final NO GROWTH IN 5 DAYS Laboratory Tests 05/02/19 05/03/19 05/03/19 05:24 05:03 05:03 WBC 14.2 H 19.9 H Potassium 3.4 L 05/03/19 05/04/19 05/04/19 08:26 05:53 08:44 WBC 11.8 H Potassium 3.3 L 3.3 L Hospitalist ROS - Medication Medications: Active Medications Generic Name Dose Route Start Last Admin Trade Name Freq PRN Reason Stop Dose Admin Acetaminophen 650 mg 04/27/19 01:39 04/28/19 10:16 Tylenol PO 650 mg Q6H PRN Administration Mild Pain (1-3)/ FEVER Hydrocodone Bitart/Acetaminophen 1 tab 05/02/19 20:10 05/07/19 13:31 [place] 5/325 PO 1 tab Q4H PRN Administration Pain 4-5 Atorvastatin Calcium 10 mg 04/27/19 21:00 05/06/19 20:36 Lipitor PO 10 mg HS MITCH Administration Diphenoxylate HCl/Atropine 2 tab 05/06/19 16:15 05/07/19 13:32 Lomotil PO 03/11/20 16:16 2 tab Q6H MITCH Administration Duloxetine HCl 60 mg 04/28/19 09:00 05/07/19 08:54 Cymbalta PO 60 mg DAILY MITCH Administration Promethazine HCl 12.5 mg/ 50.5 mls @ 202 mls/hr 04/29/19 22:03 04/30/19 05:21 Sodium Chloride IVPB 50.5 mls Q6H PRN Administration Nausea Potassium Chloride/Sodium Chloride 1,000 ml in 1,000 mls @ 50 mls/hr 05/04/19 09:45 05/06/19 20:35 Ns 0.9% W/ 20 Meq Kcl IV 1,000 mls .Q20H MITCH Administration Lidocaine 1 patch 05/02/19 21:00 05/06/19 20:35 Lidoderm 5% Patch TD 1 patch 2100 MITCH Administration Metoprolol Tartrate 12.5 mg 04/27/19 21:00 05/07/19 08:58 Lopressor PO 12.5 mg BID MITCH Administration Miscellaneous Medication 1 each 05/03/19 09:00 05/07/19 09:05 Lidocaine Patch Removal TOP 1 each 0900 MITCH Administration Ondansetron HCl 4 mg 04/26/19 22:50 04/29/19 19:48 Zofran IVP 4 mg Q6H PRN Administration Nausea/Vomiting Ondansetron HCl 4 mg 04/29/19 19:45 05/07/19 00:49 Zofran Odt PO 4 mg Q6H PRN Administration Nausea/Vomiting Pantoprazole Sodium 40 mg 05/04/19 09:00 05/07/19 09:00 Protonix PO 40 mg DAILY MITCH Administration Pregabalin 75 mg 04/28/19 15:00 05/07/19 09:01 Lyrica PO 75 mg TID MITCH Administration Sodium Chloride 10 ml 05/02/19 21:00 05/07/19 09:13 Flush - Normal Saline IVF 10 ml Q12HR MITCH Administration Sumatriptan Succinate 50 mg 04/27/19 14:44 04/29/19 08:33 Imitrex PO 50 mg Q4H PRN Administration Migraine Headache Temazepam 30 mg 04/27/19 21:00 05/06/19 20:37 Restoril PO 30 mg HS MITCH Administration Tramadol HCl 50 mg 04/27/19 16:32 05/07/19 00:54 Ultram PO 50 mg Q6H PRN Administration Moderate to Severe Pain (6-10) - Exam General Appearance: NAD, awake alert Eye: PERRL, anicteric sclera ENT: normocephalic atraumatic, no oropharyngeal lesions Neck: supple, symmetric, no JVD, no thyromegaly Heart: RRR, no gallops, no rubs, normal peripheral pulses Respiratory: CTAB, no wheezes, no rales, no ronchi, normal chest expansion Gastrointestinal: soft, non-tender, non-distended, normal bowel sounds Gastrointestinal - other findings: + ostomy in place with soft stool Extremities: no cyanosis, no clubbing, no edema Skin: normal turgor, no lesions Neurological: cranial nerve grossly intact, no new deficit Musculoskeletal: normal tone, generalized weakness Psychiatric: normal affect, A&O x 3 Hosp A/P (1) High output ileostomy Code(s): R19.8 - OTH SYMPTOMS AND SIGNS INVOLVING THE DGSTV SYS AND ABDOMEN; Z93.2 - ILEOSTOMY STATUS Status: Acute Plan: Improved, continue low-residue diet, Lomotil, d/c abx (2) GM (acute kidney injury) Code(s): N17.9 - ACUTE KIDNEY FAILURE, UNSPECIFIED Status: Acute Plan: Resolved (3) Dehydration Code(s): E86.0 - DEHYDRATION Status: Acute Plan: Resolving (4) Hypokalemia Code(s): E87.6 - HYPOKALEMIA Status: Acute Plan: KCL supplementation (5) Small bowel obstruction Code(s): K56.609 - UNSP INTESTNL OBST, UNSP TO PARTIAL VERSUS COMPLETE OBST Status: Acute Plan: Resolving - Plan PT/OT, psychosocial rehabilitation counselor, out of bed/ambulate, DVT proph w/SCDs Stable overall D/c Zosyn Continue IVF's another 24h then d/c OOB with PT/OT SNF d/c likely in am
--- NOTE | 2019-05-07 16:22 | PRG ---
DATE OF SERVICE: 05/07/2019 Ms. Jones remains hospitalized on the medical floor. She is hospital day #12 from this admission, which was essentially for electrolyte abnormality and high-output ileostomy. Please see details from the surgery medical student note from today. In summary, she continues to be stable. For reasons that are unclear, she remains on intravenous antibiotics. She has never had a documented infectious source and it seems that her leukocytosis is being treated with a long course of IV antibiotics. I have therefore discontinued her IV antibiotics today as I do not think that this is changing her current course. She remains on IV fluids. At some point, these will have to be discontinued to see if she can remain stable with management of her ostomy output and her oral intake. At some point, this is what she will be discharged on, and for her to not be continuously readmitted, she will have to have a balance between her intake and her output in light of her ileostomy. She otherwise has no new concerns or problems. She remains without abdominal problems, and her ileostomy continues to function well and she is tolerating her diet. Continue to work with attempts to manage her ostomy output (trying a lower dose of tincture of opium and currently on Lomotil). I will see her from [id number] while she is here in the hospital. Please let me know if there are any surgical concerns. Job ID: [id number]
[2019-05-07] MEDS: Mag-Al 1200 mg/1200 mg/30 ML UDCUP PO PRN ×2 (16:31→20:27)
[2019-05-07] MEDS ORDERED: Mag-Al 1200 mg/1200 mg/30 ML UDCUP PO PRN (16:35)
[2019-05-07] MEDS: NS 0.9% w/ 20 MEQ KCL 1,000 ML/1,000 ML BAG IV SCH (20:26)
[2019-05-07] MEDS: Atorvastatin Calcium 10 MG TAB PO SCH (20:27)
[2019-05-07] MEDS: Lidocaine 5% Patch TD SCH (20:28)
[2019-05-07] MEDS: Temazepam 15 MG CAP PO SCH (21:40)
[2019-05-08] MEDS: Diphenoxylate HCl/Atropine Tablet PO SCH ×3 (03:56→15:33)
--- NOTE | 2019-05-08 09:26 | PRG ---
DATE OF SERVICE: 05/07/2019 SUBJECTIVE: Ms. Jones had about 1500 mL of stool today. She has been taking Lomotil as scheduled. She has no complaints. She has no nausea or vomiting. She reports that her sister[facility] hospital has accepted her for rehab. OBJECTIVE: VITAL SIGNS: Temperature 97, pulse 82, blood pressure 142/75. ABDOMEN: Soft, nontender. LABORATORY DATA: None today. ASSESSMENT: 1. High output ileostomy. The patient refused Colestid and cholestyramine. We started her on Lomotil. Opium for opium was not available, the hospital is ordering some more. 2. The patient notes that she has been accepted at [facility]. That is reasonable for her to be transferred when the hospital seems ready to transfer. 3. So far in regard to her leukocytosis the blood cultures were negative and the antibiotics are being stopped. RECOMMENDATIONS: Continue present medications. Wean IV fluids, although she would be transferred soon. Job ID: [id number]
[2019-05-08] MEDS: DULoxetine 60 MG CAP PO SCH (09:29)
[2019-05-08] MEDS: Metoprolol Tartrate 25 MG TAB PO SCH (09:29)
[2019-05-08] MEDS: Pregabalin 75 MG CAP PO SCH ×2 (09:32→15:33)
[2019-05-08] MEDS: Lidocaine Patch Removal TOP SCH (09:35)
[2019-05-08] MEDS: Mag-Al 1200 mg/1200 mg/30 ML UDCUP PO PRN ×2 (11:34→17:58)
[2019-05-08] MEDS: NS 0.9% w/ 20 MEQ KCL 1,000 ML/1,000 ML BAG IV SCH (15:35)
[2019-05-08 16:39] VITALS: BP 104/64; TEMP 97.9
[2019-05-08] MEDS: HYDROcodone/Acetaminophen 5/325 mg Tablet PO PRN (17:15)
--- NOTE | 2019-05-09 06:08 | PQF ---
MINISTERIO CHUNG CHARLES DO [id number] CLINICAL DOCUMENTATION CLARIFICATION FORM: POST DISCHARGE Addendum to original discharge summary date: ____ Late entry note date: __ DATE:05/09/2019 ATTN: Robin Hilton Please exercise your independent, professional judgment in responding to the clarification form. Clinical indicators are provided on the bottom of this form for your review Please check appropriate box(s): [ ] SIRS due to Non-infectious process: [ ] Dehydration [ ] Hyponatremia [ ] Hypomagnesemia [ ] Postoperative complication of Ileostomy [ ] With organ dysfunction [ ] Without organ dysfunction [ x ] Other diagnosis _Bowel obstruction [ ] Unable to determine n addition, please specify: Present on Admission (POA): [ x ] Yes [ ] No [ ] Unable to determine For continuity of documentation, please document condition throughout progress notes and discharge summary. Thank You. CLINICAL INDICATORS - SIGNS / SYMPTOMS / LABS Laboratory 04/26 WBC 16.4, Neutrophils 10.3, Lymphocytes 4.8, Monocytes 1.1, Lactic acid 2.0 Vital sign 04/26 BP 108/53, Pulse 111, Resp 20, Temp 8707 ED note p5 04/26 SIRS Scoring Yes pt did meet at least 1 criteria ED note p5 05/01 SIRS criteria: Unknown Source H&P p1 04/27 Dr Mack presents to the ER with weakness, abdominal pain since yesterday. H&P p1 04/27 Dr Mack Electrolytes sodium was 132, Magnesium is low at 1.5. Pt appears to be dehydrated H&P p1 04/27 Dr Mack Creatinine is 1.3. WBC count is elevated at 16.4, no obvious source of infection. Consult p1 04/27 Dr Bautista Hypokalemia secondary to high output ileostomy Hospitalist PN p7 05/04 Dr Dai GM present on admission, resolved with IV fluids RISK FACTORS H&P p1 04/27 78 year old Female H&P p1 04/27 s/p Ileostomy H&P p1 04/27 Dehydration H&P p1 04/27 Hyperlipidemia H&P p1 04/27 HTN H&P p1 04/27 s/p Cholecystectomy, Bowel resection, Splenectomy H&P p2 04/27 Hyponatremia H&P p2 04/27 Hypomagnesemia TREATMENT MAY 19 IV Zosyn 4.5gm MAY 19 IV Ceftriaxone 1gm MAY 19 IV Pepcid 20 mg MAY 19 Imodium 2mg po MAY 19 IV Magnesium Sulfate 2gm MAY 19 IV Potassium Chloride 20meQ MAY 19 K-Dur 20meq po MAY 19 IVF 1L MAY 19 Protonix 40mg po MAY 19 Urocit L 40meq po Blood cultured order 04/26 GE consult 04/27 Long [facility] General Surgery consult 04/30 Abelardo Olson (This form is maintained as a part of the permanent medical record) 2014 [employer], [email or web address]. All Rights Reserved [email or web address]
--- NOTE | 2019-05-09 09:22 | DIS ---
DATE OF ADMISSION: 04/27/2019 DATE OF DISCHARGE: 05/08/2019 DISCHARGE DIAGNOSES: 1. High-output ileostomy, improved. 2. Small bowel obstruction, resolved nonoperatively. 3. Acute kidney injury, resolved. 4. Dehydration, resolved. 5. Hypokalemia, improved. 6. Chronic pain syndrome. 7. Depression/anxiety. CONSULTATIONS: 1. Dr. Bustillos with General Surgery Service. 2. Dr. Lara and Dr. Bautista and Dr. Buckley with GI Service. PERTINENT LABORATORY AND X-RAY FINDINGS: Creatinine ranged between 0.71 to 1.38. Estimated GFR ranged between 43 to 79. Lactic acid level 2.0. Magnesium 1.5. Potassium level ranged between 2.8 to 4.9. Lipase 16. CBC showed a white blood cell count ranging between 10.8 to 19.9, hemoglobin ranged between 10.5 to 13.1. Blood cultures x2 dated 04/26/2019 showed no growth at [address] of the abdomen and pelvis dated 04/26/2019, showed no acute process. Portable chest x-ray dated 04/26/2019, showed no acute process. CT of the brain without contrast dated 04/27/2019, showed no acute intracranial process. CT angiogram of the abdomen and pelvis dated 04/29/2019, showed severe partial small bowel obstruction with transition zone in the right lower quadrant. Moderate narrowing of the proximal celiac artery. Chronic changes noted. Small bowel follow-through dated 05/01/2019, showed no evidence of bowel obstruction. HOSPITAL COURSE: The patient was initially admitted to the medical floor after presenting with weakness and abdominal pain. The patient with significant history of previous subtotal colectomy after ischemic bowel with sepsis in February 2019. The patient was given ileostomy and monitored on an outpatient basis. The patient presented with increasing abdominal pain, generalized weakness and poor oral intake. Initial studies in the emergency room including CT of the abdomen and pelvis showed no obstructive process. The patient was given supportive management including IV fluids. The patient had increasing abdominal pain as well as nausea and vomiting on 04/29/2019, undergoing repeat CT angiogram of the abdomen. A partial small bowel obstruction was noted in the right lower quadrant, at which point, the patient had a nasogastric tube placed. The patient was monitored by the General and GI Service without recommendations for surgical intervention. The patient had spontaneous resolution of the partial small bowel obstruction with high output through ileostomy. The patient continued to have high output liquid stool, prompting a trial of tincture of opium and loperamide. The patient eventually had resolution of the high output ileostomy and was able to tolerate regular oral intake. Due to the patient's overall deconditioned status and recent prolonged hospital stays, the patient was deemed an appropriate candidate for ongoing retirement care. The patient has been approved to transfer to inpatient rehabilitation facility in the [facility] area after discharge. I have examined the patient at the time of discharge and discussed followup instructions. The patient verbalized understanding and in agreement and ready for discharge on 05/08/2019. DISCHARGE MEDICATIONS: 1. Lipitor 10 mg p.o. daily. 2. Colestipol 1 g p.o. b.i.d. 3. Cymbalta 60 mg p.o. daily. 4. Metoprolol tartrate 12.5 mg p.o. b.i.d. 5. Lyrica 75 mg p.o. t.i.d. 6. Rizatriptan 5 mg p.o. q.2 hours p.r.n. headache. 7. Anoro Ellipta 62.5 mcg inhaled daily. 8. Lomotil 2 tabs p.o. q.6 hours p.r.n. diarrhea or loose stool. 9. Lidocaine patch one patch transdermally daily. 10. Protonix 40 mg p.o. daily. 11. Maalox 10 mL p.o. q.4 hours p.r.n. FOLLOWUP: The patient may follow up with her primary care provider, Dr. Ronny Alas. CONDITION ON DISCHARGE: Fair. ACTIVITY: Ad dav, rolling walker with ambulation. DIET: Regular with fiber restriction and lactose-free. CODE STATUS: Full. DISPOSITION: Discharged to [facility] in [place], [place], on 05/08/2019. TIME SPENT: Total time preparing and coordinating discharge is 38 minutes. Job ID: [id number]
--- NOTE | 2019-05-13 04:05 | PQF ---
MINISTERIO CHUNG CHARLES DO [id number] [id number]- [id number] CLINICAL DOCUMENTATION CLARIFICATION FORM: POST DISCHARGE Addendum to original discharge summary date: ____ Late entry note date: __ Please query Dr. Bustillos to answer this question. Thanks, Dr. Alexander DATE: 05/13/2019 ATTN: Robin Hilton Please exercise your independent, professional judgment in responding to the clarification form. Clinical indicators are provided on the bottom of this form for your review Please check appropriate box(s): [ ] Partial bowel obstruction is a complication of Ileostomy [ ] Partial bowel obstruction is not a complication, please specify etiology: _ [ ] Other diagnosis [ ] Unable to determine CLINICAL INDICATORS - SIGNS / SYMPTOMS / LABS Vital sign 04/26 BP 108/53, Pulse 111, Resp 20, Temp 8707 H&P p1 04/27 Dr Hughes presents to the ER with weakness, abdominal pain since yesterday. H&P p1 04/27 Dr Hughes Electrolytes sodium was 132, Magnesium is low at 1.5. Pt appears to be dehydrated H&P p1 04/27 Dr Hughes Creatinine is 1.3. WBC count is elevated at 16.4, no obvious source of infection. H&P p2 04/27 Dr Hughes Abdominal pain. Imaging studies, nondiagnostic Consult p1 04/27 Dr Bautista Hypokalemia secondary to high output ileostomy Consult p1 04/27 Dr Bautista Currently she states that she is not experiencing this abdominal pain, but has noticed that this pain will increase whenever she has the passage of a more solid stool through her ileostomy Consult p1 04/27 Dr Bautista patient had recently undergone colonic resection with ileostomy placement in February 2019 Consult p3 04/27 Dr Bautista In terms of her abdominal pain,it seems to be more related to harder stools through the ostomy itself and is most likely due to things like partial food/stool blockage of the ostomy site CT of abdomen p1 04/29 Dr. Barger Impression:severe partial SBO with a suggested transition zone in the right lower quadrant near a small bowel anastomotic site RISK FACTORS H&P p1 04/27 78 year old Female H&P p1 04/27 s/p Ileostomy H&P p1 04/27 Dehydration H&P p1 04/27 Hyperlipidemia H&P p1 04/27 HTN H&P p1 04/27 s/p Cholecystectomy, Bowel resection, Splenectomy H&P p2 04/27 Hyponatremia H&P p2 04/27 Hypomagnesemia ED Notes p3 04/27 History of ovarian cancer TREATMENT MAY 19 IV Zosyn 4.5gm MAY 19 IV Ceftriaxone 1gm MAY 19 IV Pepcid 20 mg MAY 19 Imodium 2mg po MAY 19 IVF 1L MAY 19 Protonix 40mg po MAY 19 Urocit L 40meq po GE consult 04/27 [facility] General Surgery consult 04/30 Abelardo Olson Small bowel X-ray 05/10 (This form is maintained as a part of the permanent medical record) 2014 [employer], [employer]. All Rights Reserved [email or web address]
== END 2019-05-08 18:06 | DRG 389 ==
LOC: ERS 17:36 → T4-B 04-27 00:23
PROVIDERS: ADMIT Internal Medicine; ATTEND Internal Medicine
DX: K56.600 Partial intestinal obstruction, unspecified as to cause (principal); N17.9 Acute kidney failure, unspecified; E87.1 Hypo-osmolality and hyponatremia; R65.10 Systemic inflammatory response syndrome (SIRS) of non-infectious origin without acute organ dysfunction; E86.0 Dehydration; E87.6 Hypokalemia; E78.5 Hyperlipidemia, unspecified; I10 Essential (primary) hypertension; J44.9 Chronic obstructive pulmonary disease, unspecified; F41.9 Anxiety disorder, unspecified; F32.9 Major depressive disorder, single episode, unspecified; E83.42 Hypomagnesemia; D72.829 Elevated white blood cell count, unspecified; M54.5 Low back pain; R19.7 Diarrhea, unspecified; G89.29 Other chronic pain; Z93.2 Ileostomy status; Z90.49 Acquired absence of other specified parts of digestive tract; Z88.5 Allergy status to narcotic agent; Z91.040 Latex allergy status; Z90.81 Acquired absence of spleen; Z90.710 Acquired absence of both cervix and uterus; Z85.42 Personal history of malignant neoplasm of other parts of uterus; Z91.11 Patient's noncompliance with dietary regimen; Z79.899 Other long term (current) drug therapy
CPT/HCPCS: 36415; 36416; 70450; 71045; 74018; 74022; 74174; 74177; 74250; 80048; 80053; 81003; 81015; 82140; 82550; 83605; 83690; 83735; 83880; 84100; 85025; 85652; 86141; 87040; 93005; 94640; 96361; 96365; 96366; 96375; A4353; C9113; J0696; J1200; J1885; J2270; J2405; J2543; J2550; J3010; J3370; J3475; J3480; J3490; J7042; J7050; J7620; Q0162; Q9963; Q9967; S0028

== ENCOUNTER 2019-05-23 08:36 | Inpatient (IN) | payer MEDICARE, BC ==
[2019-05-23 09:55] LABS: Hemoglobin 13.8 g/dL (12.0-16.0); Mean Corpuscular HGB CONC 32.5 g/dL (32.0-36.0); Mean Corpuscular Hemoglobin 28.4 pg (27.0-31.0); Mean Corpuscular Volume 87.5 fL (78.0-98.0); Mean Platelet Volume 11.2 fL (7.4-10.4); Platelet Count 298 thou/uL (130-400); RBC Distribution Width 15.6 % (11.5-14.5); Red Blood Cell (RBC) Count 4.85 mill/uL (4.20-5.40); White Blood Cell (WBC) Count 27.8 thou/uL (4.8-10.8)
[2019-05-23 10:02] LABS: Bilirubin Negative (Negative); Blood, Urine Negative (Negative); Clarity Clear (Clear); Glucose, Urine (Dipstick) Normal (Negative); Leukocyte Negative Leu/uL (Negative); Nitrite Negative (Negative); Protein, Urine (Dipstick) Negative (Neg-Trace); Urobilinogen Normal mg/dL (Less than 2)
[2019-05-23 10:19] LABS: Band 1 % (5-11); Hypersemented Neutrophil SLIGHT; Lymphocytes 8 % (21-51); MDiff Complete? YES; Monocytes 2 % (0-10); Myelocyte 1 % (0-0); Neutrophil 86 % (42-75); Platelet Morphology Comment Appears Adequate; Polychromasia SLIGHT = 2-3 cells (100X) (0-2/hpf); Reactive Lymphocytes 2 % (0-10)
[2019-05-23 10:22] LABS: ALT (SGPT) 17 U/L (8-55); AST (SGOT) 20 U/L (5-34); Albumin 4.8 g/dL (3.4-4.8); Alkaline Phosphatase 63 U/L (40-110); Anion Gap 20 mmol/L (10-20); BUN (Urea Nitrogen) 28 mg/dL (9.8-20.1); Bilirubin, Total 0.6 mg/dL (0.2-1.2); CK (CPK) 19 U/L (29-168); Calc. Creatinine Clearance 0 mL/min (70-130); Carbon Dioxide 33 mmol/L (23-31); Chloride 84 mmol/L (98-107); Estimated GFR-MDRD 32; Globulin 3.8 g/dL (2.4-3.5); Glucose 113 mg/dL (83-110); Lipase 54 U/L (8-78); Potassium 4.2 mmol/L (3.5-5.1); Protein, Total 8.6 g/dL (6.0-8.3); Sodium 133 mmol/L (136-145)
[2019-05-23] MEDS ORDERED: Piperacillin/Tazobactam 4.5 GM VIAL ONE (10:24)
[2019-05-23] MEDS ORDERED: Vancomycin 1.5 GRAM/300 ML BAG 1.5 GM in Premix Bag 1 BAG IVPB SCH (10:30)
--- NOTE | 2019-05-23 10:39 | RAD ---
PORTABLE CHEST 1 VIEW: Date: 05/23/2019 Time: 1024 hours HISTORY: Altered mental status, nausea and vomiting. Associated abdominal pain. Comparison made with exam of 05/04/2019. FINDINGS: The heart size is normal. The aorta is tortuous. There is mild elevation of the right hemidiaphragm. Dorsal stimulator leads are present. No lobar consolidation, pneumothoraces, or pleural effusions are noted. IMPRESSION: No acute process. POS: [facility]
--- NOTE | 2019-05-23 11:03 | CT ---
EXAM: Abdomen and pelvic CT scan with contrast: HISTORY: Nausea and vomiting prior cholecystectomy hysterectomy splenectomy and appendectomy and bowel resecti on COMPARISON: 04/26/2019 FINDINGS: Granuloma calcification the right middle lobe Liver: Unremarkable. Gallbladder:Status post cholecystectomy. Mild dilatation of the common duct and proximal intrahepatic ducts. Pancreas:Unremarkable Spleen:Status post splenectomy. Adrenal glands:Unremarkable. Kidneys:No renal calculus or acute obstruction. No solid or cystic renal mass. Fairly extensive abnormal small bowel dilatation developing since the prior study with nondilated dis carmita small bowel evidence for a mid to high-grade small bowel obstruction. Right-sided ostomy site, stable. No CT evidence for acute appendicitis. Somewhat distended urinary bladder. Reproductive system:Status post hysterectomy. No abscess, adenopathy, or abnormal fluid collection within the abdomen or pelvis. IMPRESSION: Interval development of abnormal dilated small bowel since prior exam 04/26/2019 evidence for developin g mid to high-grade small bowel obstruction . Numerous other findings as above, stable.
--- NOTE | 2019-05-23 11:56 | RAD ---
Frontal radiograph abdomen: 05/23/2019 COMPARISON: 04/30/2019 HISTORY: Evaluate location of nasogastric tube FINDINGS: There is a nasogastric tube in place, distal tip overlying the left upper quadrant. Mild in creased linear interstitial density noted within the imaged lung bases. There is atherosclerotic desiccation of the aortic arch. There is a dorsal column stimulating device with leads extending into the thoracic spine. IMPRESSION: Nasogastric tube extending into the left upper quadrant.
--- NOTE | 2019-05-23 12:00 | CT ---
CT BRAIN WITHOUT CONTRAST: Date: 05/23/2019 HISTORY: Altered mental status. COMPARISON: 04/27/2019. FINDINGS: The patient had IV contrast at 10:35 a.m. today (an hour ago) for a CT abdomen and pelvis. Changes of chronic small vessel ischemic disease are again noted. No evidence of acute infarct, defin ite hemorrhage, midline shift, or abnormal extra-axial fluid collections are seen. The bony calvarium is intact. The visualized paranasal sinuses and mastoid air cells are well aerated. 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 IMPRESSION: No CT evidence of acute intracranial process. POS: [facility]
[2019-05-23] MEDS ORDERED: Acetaminophen 650 MG Suppository PR PRN (14:19)
[2019-05-23] MEDS ORDERED: Iopamidol-370 76% 500 ML 1 ML ONE (14:26)
[2019-05-23 14:29] LABS: Lactic Acid 1.8 mmol/L (0.5-2.2)
[2019-05-23] MEDS ORDERED: Lactated Ringer's 1,000 ML IV SCH (14:30)
--- NOTE | 2019-05-23 15:07 | HP ---
REASON FOR ADMISSION: Small-bowel obstruction. HISTORY OF PRESENTING ILLNESS: Please note, majority of this history is obtained by talking to ER physician, Dr. Kaba. The patient is a bit lethargic and is not fully oriented. The patient says she woke up with vomiting. Per ER records, the patient was sent [facility] as she was getting confused and was vomiting. EMS was summoned and the patient was brought here. She has been having nausea and vomiting for last 3 days. She in fact was taken to the emergency room prior to arrival, but not here. Has no complaints of cough or expectoration. She currently has an NG tube and is on intermittent suction with aspiration of gastric contents. Has no complaints of pain in her legs. No complaints of abdominal pain or chest pain. She states she is in assisted living facility. PAST MEDICAL AND SURGICAL HISTORY: History of subtotal colectomy after ischemic bowel with sepsis in February of 2019, ileostomy, history of prior small-bowel obstructions which have resolved nonoperatively, high-output ileostomy admission in April of 2019, chronic pain syndrome, depression, anxiety. She was discharged to inpatient rehab facility in [facility] in April of 2019 after being hospitalized here. History of ITP, COPD, hypertension, dyslipidemia, cholecystectomy, hysterectomy, splenectomy, appendectomy. PERSONAL HISTORY: Does not abuse alcohol or drugs. No history of smoking. FAMILY HISTORY: Cannot be accurately obtained as patient is confused to respond well. CURRENT MEDICATIONS: Please note again, the patient does not recall all her medications. Per records from [facility], the patient is on; 1. Atorvastatin 10 mg daily. 2. Cholestyramine 4 g daily. 3. Diphenoxylate with atropine every 8 hours p.r.n. for diarrhea. 4. Duloxetine 60 mg daily. 5. Lidocaine transdermal patch daily. 6. Lopressor 12.5 mg twice daily. 7. Protonix 40 mg every 12 hours. 8. Magnesium oxide 400 mg twice daily. 9. Potassium chloride 10 mEq every 2 days. 10. Sumatriptan 50 mg q.4 hourly p.r.n. for migraine. 11. DuoNeb q.4 hourly as needed. 12. Lyrica 75 mg 3 times daily. ALLERGIES: TO LATEX AND MORPHINE. CODE STATUS: Full. Power of attorney at law is her daughter per patient. REVIEW OF SYSTEMS: Cannot be accurately obtained as patient is not fully oriented. PHYSICAL EXAMINATION: GENERAL: The patient is a 78-year-old female, who is currently not in any acute distress. VITAL SIGNS: Blood pressure 130/81, pulse 110 per minute, respiratory rate 20 per minute, temperature 97.8 degrees Fahrenheit, saturating 97% on room air. NECK: Supple. No elevated JVD. HEENT: Eyes; extraocular muscles intact. Pupils reacting to light. Oral cavity, mucous membranes are dry. The patient has a nasopharyngeal tube through her nose. CARDIOVASCULAR: S1 and S2 heard, regular rhythm. RESPIRATORY: Air entry 1+ bilateral. No rales or rhonchi. ABDOMEN: Soft. Bowel sounds heard. No tenderness, rigidity, or guarding. Ileostomy has liquid stool in it. EXTREMITIES: No peripheral edema or calf tenderness. VASCULAR SYSTEM: Peripheral pulses 1+ bilateral. No ischemic ulcerations or gangrene. CENTRAL NERVOUS SYSTEM: No gross focal motor deficits noted. The patient is alert, awake, oriented well. PSYCHIATRIC: The patient's mood is euthymic. No hallucinations or delusions. LABORATORY DATA: White count of 27.8, H and H of 13 and 42, platelet count 298 with 86% neutrophils, MCV is 87. BUN 28, creatinine 1.54, serum bicarb is 33, sodium 133, potassium 4.2, serum chloride is 84, albumin is 4.8, lipase is 54. UA is negative for any infection. One set of troponin is negative. EKG done shows sinus tach at 102 beats per minute. There is Q-wave seen in V1, V2. CLINICAL IMPRESSION AND PLAN: The patient will be admitted to med/surg floor for small-bowel obstruction with moderate to severe dehydration. Her white count is elevated. It is unclear if this is due to margination versus underlying infection. She will be empirically placed on Zosyn for now based on renal function. Blood and urine cultures have been obtained. She will be on lactated Ringer's at 100 mL per hour. She has received a total of 1 L IV fluid in the ER along with vancomycin and Zosyn. We will keep her n.p.o. Dr. Bustillos, her general surgeon, will follow her while she is in the hospital. We will continue her lidocaine patch, DuoNeb q.4 hourly, Anoro Ellipta inhaler as before. All other medications will be held for now. Job ID: [id number] [facility]
[2019-05-23] MEDS: Sodium Chloride 0.9% 1,000 ML IV SCH (16:49)
[2019-05-23] MEDS: Piperacillin/Tazobactam 3.375 GM in Sodium Chloride 0.9% 100 ML IVPB SCH (17:44)
[2019-05-23] MEDS: Ondansetron PF 4 MG/2 ML Vial IVP PRN (19:15)
[2019-05-23] MEDS: Lidocaine 5% Patch TD SCH (21:14)
[2019-05-24] MEDS: Piperacillin/Tazobactam 3.375 GM in Sodium Chloride 0.9% 100 ML IVPB SCH ×3 (02:07→18:28)
[2019-05-24] MEDS: Sodium Chloride 0.9% 1,000 ML IV SCH (02:08)
[2019-05-24 06:00] LABS: #Basophils 0.1 thou/uL (0.0-0.2); #Eosinphils 0.1 thou/uL (0.0-0.7); #Lymphocytes 2.4 thou/uL (1.20-3.40); #Monocytes 1.6 thou/uL (0.11-0.59); #Neutrophils 19.9 thou/uL (1.40-6.50); %Basophils 0.3 % (0.0-1.0); %Eosinophils 0.3 % (0.0-10.0); %Monocytes 6.7 % (0.0-10.0); %Neutrophils 82.6 % (42.0-75.0); Mean Corpuscular HGB CONC 31.2 g/dL (32.0-36.0); Mean Corpuscular Hemoglobin 27.4 pg (27.0-31.0); Mean Platelet Volume 10.9 fL (7.4-10.4); Platelet Count 313 thou/uL (130-400); RBC Distribution Width 15.9 % (11.5-14.5); Red Blood Cell (RBC) Count 4.73 mill/uL (4.20-5.40); White Blood Cell (WBC) Count 24.1 thou/uL (4.8-10.8)
[2019-05-24 06:18] LABS: Anion Gap 19 mmol/L (10-20); BUN (Urea Nitrogen) 26 mg/dL (9.8-20.1); Calc. Creatinine Clearance 36 mL/min (70-130); Calcium 9.6 mg/dL (7.8-10.44); Carbon Dioxide 26 mmol/L (23-31); Chloride 95 mmol/L (98-107); Estimated GFR-MDRD 38; Glucose 113 mg/dL (83-110); Sodium 137 mmol/L (136-145)
[2019-05-24 06:22] LABS: Potassium 2.9 mmol/L (3.5-5.1)
[2019-05-24] MEDS ORDERED: Famotidine/PF 20 mg/2ml Vial SLOW IVP SCH (09:00)
[2019-05-24] MEDS: Potassium Chloride 20 MEQ in Premix Bag 1 BAG IVPB SCH ×2 (09:30→15:46)
[2019-05-24] MEDS: Enoxaparin Sodium 40 MG/0.4 ML SYRINGE SC SCH (09:35)
[2019-05-24] MEDS: Lidocaine Patch Removal 1 EACH TOP SCH (09:35)
[2019-05-24] MEDS: NS 0.9% w/ 20 MEQ KCL 1,000 ML IV SCH ×2 (10:29→18:31)
[2019-05-24] MEDS ORDERED: MD-Gastroview 120 ML BOT ONE (14:16)
--- NOTE | 2019-05-24 16:16 | RAD ---
Small bowel follow-through HISTORY: Abdominal pain. Small bowel obstruction. COMPARISON: 05/01/2019. CT exam 05/23/2019. FINDINGS: On early images, the small bowel is much less distended than on recent CT. There is progres sive opacification of the bowel. At 3 hours, contrast is apparent within the colostomy bag over the right side of the abdomen. IMPRESSION: Interval resolution of distal small bowel obstruction since the 05/23/2019 CT exam.
--- NOTE | 2019-05-24 16:46 | PDOC.HOSPP ---
- Subjective Encounter Date: 05/24/19 Encounter Time: 08:15 Subjective: no nausea or vomiting or abd pain has ng tube with low intermittent suction she feels weak - Objective Vital Signs & Weight: Vital Signs (12 hours) Pulse Pulse Resp BP Pulse Ox Pulse Ox 05/24/19 12:43 107 H 16 98 05/24/19 10:50 106 H 134/75 100 05/24/19 08:00 98 05/24/19 07:44 99 18 Weight Admit Weight 148 lb Weight 148 lb I&O: 05/23/19 05/24/19 05/25/19 06:59 06:59 06:59 Intake Total 350 Output Total 1610 Balance -1260 Result Diagrams: 05/24/19 05:38 05/24/19 05:38 Hospitalist ROS - Medication Medications: Active Medications Generic Name Dose Route Start Last Admin Trade Name Freq PRN Reason Stop Dose Admin Albuterol/Ipratropium 3 ml 05/23/19 19:00 05/24/19 12:43 Duoneb NEB 3 ml [id number] MITCH Administration Enoxaparin Sodium 40 mg 05/24/19 09:00 05/24/19 09:35 Lovenox SC 40 mg 0900 MITCH Administration Famotidine 20 mg 05/24/19 09:00 05/24/19 09:35 Pepcid SLOW IVP 20 mg DAILY MITCH Administration Fentanyl 25 mcg 05/24/19 08:00 05/24/19 08:24 Duragesic TD 25 mcg Q3D MITCH Administration Piperacillin Sod/Tazobactam 100 mls @ 200 mls/hr 05/23/19 18:00 05/24/19 10: 28 Sod 3.375 gm/ Sodium Chloride IVPB 100 mls 0200,1000,1800 MITCH Administration Potassium Chloride/Sodium Chloride 1,000 mls @ 100 mls/hr 05/24/19 09:00 09/06 10:29 Ns 0.9% W/ 20 Meq Kcl IV 1,000 mls .Q10H MITCH Administration Potassium Chloride 20 meq/ 100 mls @ 50 mls/hr 05/24/19 09:00 05/24/19 15:46 Device IVPB 05/24/19 16:59 100 mls Q6H MITCH Administration Lidocaine 1 patch 05/23/19 21:00 03/05/20 21:14 Lidoderm 5% Patch TD 1 patch 2100 MITCH Administration Miscellaneous Medication 1 each 05/24/19 09:00 05/24/19 09:35 Lidocaine Patch Removal TOP 1 each 0900 MITCH Administration Ondansetron HCl 4 mg 05/23/19 14:19 05/23/19 19:15 Zofran IVP 4 mg Q6H PRN Administration Nausea/Vomiting - Exam General Appearance: awake alert Eye: PERRL, anicteric sclera ENT: no oropharyngeal lesions, moist mucosa ENT - other findings: ng tube+ Neck: supple, no JVD Heart: RRR, no murmur Respiratory: no wheezes, no rales Gastrointestinal: soft, non-tender, non-distended, normal bowel sounds, no guarding, no rigidity Gastrointestinal - other findings: ileostomy has liq stools Neurological: cranial nerve grossly intact, no focal deficits Hosp A/P (1) Small bowel obstruction Code(s): K56.609 - UNSP INTESTNL OBST, UNSP TO PARTIAL VERSUS COMPLETE OBST Status: Acute (2) Moderate dehydration Code(s): E86.0 - DEHYDRATION Status: Acute (3) FTT (failure to thrive) in adult Status: Chronic (4) HTN (hypertension) Code(s): I10 - ESSENTIAL (PRIMARY) HYPERTENSION Status: Chronic (5) Dyslipidemia Code(s): E78.5 - HYPERLIPIDEMIA, UNSPECIFIED Status: Chronic (6) COPD (chronic obstructive pulmonary disease) Status: Chronic Qualifiers: COPD type: chronic bronchitis (7) Chronic pain syndrome Code(s): G89.4 - CHRONIC PAIN SYNDROME Status: Chronic (8) Chronic back pain Code(s): M54.9 - DORSALGIA, UNSPECIFIED; G89.29 - OTHER CHRONIC PAIN Status: Chronic Qualifiers: Back pain location: low back pain (9) GM (acute kidney injury) Code(s): N17.9 - ACUTE KIDNEY FAILURE, UNSPECIFIED Status: Acute - Plan small bowel follow through done today shows clearing of her sbo diet per gen surgery advice, may start full liq diet if ok with gen surgery may remove ng tube if ok with gen surgery potassium is being corrected, labs in am gentle iv hydration, gm has resolved PT to mobilize as tolerated CM looking into skilled placement has fentanyl tts, nebs, lidocaine tts. empiric zosyn, blood and urine cs are -ve, wbc still around 20k
[2019-05-24] MEDS: Lidocaine 5% Patch TD SCH (20:10)
--- NOTE | 2019-05-24 22:20 | CON ---
DATE OF CONSULTATION: CHIEF COMPLAINT: Small-bowel obstruction. HISTORY OF PRESENT ILLNESS: The patient is a 78-year-old white female, well known to myself following surgery in February. On February 17, I performed an emergent exploratory laparotomy in treatment of sepsis and hemodynamic compromise. She was found to have ischemia and necrosis of the majority of her colon. I performed a subtotal colectomy with end ileostomy. She had a lengthy recuperation and was eventually discharged from the hospital on March 08. She has been readmitted to the hospital at least three and I believe this would make her fourth time since her discharge for some combination of dehydration or electrolyte derangement. She continues to have problems with high ileostomy output and numerous attempts have been made to regulate her ostomy output medically with varying degrees of lack of success. During her hospitalization in April, she developed abdominal distention with nausea and vomiting, was felt to have a possible small-bowel obstruction. A CT scan was obtained, which confirmed this. Nasogastric tube was placed and by the following day, her obstructive symptoms had clearly resolved. Her abdomen was benign with normal bowel sounds and she had excellent ostomy output. A small bowel follow-through was obtained at that time, which confirmed that she had no acute small-bowel obstruction. She was apparently readmitted to the hospital yesterday secondary to problems with abdominal distention with nausea and vomiting. She presented to the emergency room. She was admitted to the hospitalist service and I am consulted regarding her possible obstruction. When I saw her today, her immediate request was that her nasogastric tube be removed. She notes that she has felt much better. It was also noted that she had a full ileostomy bag and I suspected/hope that her small-bowel obstruction, which was seen on CT scan yesterday has again resolved spontaneously. PAST MEDICAL HISTORY: 1. Chronic pain. 2. Depression. 3. Anxiety. 4. COPD. 5. Diabetes. 6. History of ITP. PAST SURGICAL HISTORY: 1. Open cholecystectomy. 2. Open splenectomy. 3. Open appendectomy. 4. Bowel resection in 1981 (not certain what segment of bowel, possibly even colon). 5. Hysterectomy. 6. Laparotomy with small bowel resection in 1999. 7. Laparotomy for small bowel obstruction in 1999. 8. Spine stimulator placement. 9. Laparotomy with subtotal colectomy and end ileostomy on February 17, 2019. MEDICATIONS: Are numerous. I believe as an outpatient. These include: 1. Cholestyramine. 2. Imodium. 3. Lomotil. 4. Magnesium. 5. Zofran. 6. Protonix. 7. Imitrex. 8. Atorvastatin. 9. Cymbalta. 10. Lopressor. 11. Lidocaine patch. 12. She has previously been on other medications including Anoro and Trulicity. I am not certain exactly what her current medications are. ALLERGIES: APPARENTLY TO MORPHINE. PERSONAL AND SOCIAL HISTORY: She is with 3 children. One of her daughter was at bedside when I visited with her. 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 She formerly smoked but quit smoking about five years ago. She smoked a pack and a half to 2 packs per day most of her life. She would recently use nicotine containing E cigarettes, but apparently she has stopped this recently. She denies alcohol use. She has most recently been living in assisted living facility. REVIEW OF SYSTEMS: Otherwise unremarkable. FAMILY HISTORY: Noncontributory. PHYSICAL EXAMINATION: VITAL SIGNS: She has been afebrile since admission. Her pulse has been around 100. Blood pressure is 134/75. GENERAL: She is an elderly white female, resting in bed with nasogastric tube in place, in no acute distress. She is alert and oriented x3. Daughter is present at bedside. HEAD, EYES, EARS, NOSE, AND THROAT: Unremarkable. NECK: Supple without mass or tenderness. LUNGS: Clear to auscultation throughout. CARDIAC: Regular rate and rhythm without murmur. ABDOMEN: Soft. Bowel sounds are present, but somewhat hypoactive. There are no tympanitic bowel sounds currently. As mentioned earlier, she has a full ileostomy bag. Nasogastric tube was flushed and the only return was the water that I flushed into it. EXTREMITIES: Unremarkable. LABORATORY DATA: White blood cell count is elevated at 24.1 this morning. Of note, she always has an elevated white blood cell count. Hemoglobin 13, platelet count is 313. Chemistries reveal that she had markedly low sodium and chloride when she was admitted yesterday. She has been on saline overnight. These are markedly improved, although she does have some hypokalemia today with a potassium of 2.9. Her creatinine is 1.36. Her albumin yesterday when she was admitted was 4.8. Her magnesium today is 1.8. Her lactate has been normal during this hospitalization. X-ray CT scan from yesterday was reviewed. This clearly is indicative of dramatic dilatation of her small bowel with apparently decompressed small bowel distally. This does appear to correlate with a small bowel obstruction. I suspect this is related in some fashion to adhesions. ASSESSMENT: The patient with an apparent recurrent small bowel obstruction since I saw her earlier this month. She is being appropriately treated with conservative management with nasogastric decompression. Since she has ileostomy output, I would recommend obtaining a small-bowel follow-through with Gastrografin today. I suspect that this will show that her obstructive process is resolved. If this is the case and her nasogastric tube may be removed, she will be started on clear liquid diet. I am concerned that her obstructive processes recurred so quickly and this may eventually mandate surgery to address the obstruction and treat it. Her daughter asked whether she would be a candidate for reanastomosis to minimize the electrolyte problems. I told her that if I am going to be doing a laparotomy on her that there is no additional risks (other than possible leak) with reanastomosis. The problem would be that she would then likely have substantial diarrhea that may be difficult to control and she would have ongoing diarrhea into her diapers. But for now, in light of her ongoing problems, no surgical option is particularly appealing. I would like to avoid surgery on her if I can. However, recurrent obstructions will require surgery either to resolve the obstructive process or to reanastomose her. This can be addressed after we resolve the current obstruction, which appears to be resolving with decompression currently. If she remains stable over the weekend, I can readdress this on Monday (today is Monday). If the obstruction does not resolve currently, then she will require continued nasogastric tube suction and laparotomy to address obstruction at the least. I spoke in detail with the patient and her daughter regarding all of this. Job ID: [id number]
[2019-05-25] MEDS: NS 0.9% w/ 20 MEQ KCL 1,000 ML IV SCH ×2 (01:18→15:49)
[2019-05-25] MEDS: Piperacillin/Tazobactam 3.375 GM in Sodium Chloride 0.9% 100 ML IVPB SCH ×2 (01:18→09:19)
[2019-05-25] MEDS ORDERED: Ketorolac Tromethamine 30 MG/ML VIAL IVP SCH (04:45)
[2019-05-25] MEDS ORDERED: diphenhydrAMINE 50 MG/ML VIAL IVP SCH (04:45)
[2019-05-25] MEDS ORDERED: Prochlorperazine Edisylate 10 MG in Sodium Chloride 0.9% 50 ML IVPB SCH (05:00)
[2019-05-25 05:11] LABS: #Basophils 0.1 thou/uL (0.0-0.2); #Lymphocytes 2.2 thou/uL (1.20-3.40); #Monocytes 1.5 thou/uL (0.11-0.59); #Neutrophils 16.3 thou/uL (1.40-6.50); %Basophils 0.3 % (0.0-1.0); %Eosinophils 0.2 % (0.0-10.0); %Lymphocytes 10.9 % (21.0-51.0); %Monocytes 7.6 % (0.0-10.0); %Neutrophils 81.1 % (42.0-75.0); Hemoglobin 14.9 g/dL (12.0-16.0); Mean Corpuscular Hemoglobin 28.1 pg (27.0-31.0); Mean Corpuscular Volume 87.8 fL (78.0-98.0); Mean Platelet Volume 11.5 fL (7.4-10.4); Platelet Count 361 thou/uL (130-400); RBC Distribution Width 16.3 % (11.5-14.5); White Blood Cell (WBC) Count 20.1 thou/uL (4.8-10.8)
[2019-05-25 05:37] LABS: Anion Gap 25 mmol/L (10-20); BUN (Urea Nitrogen) 36 mg/dL (9.8-20.1); Calc. Creatinine Clearance 21 mL/min (70-130); Carbon Dioxide 25 mmol/L (23-31); Chloride 101 mmol/L (98-107); Estimated GFR-MDRD 21; Glucose 138 mg/dL (83-110); Potassium 3.5 mmol/L (3.5-5.1); Sodium 147 mmol/L (136-145)
[2019-05-25] MEDS ORDERED: Sodium Chloride 0.9% (PF) 10 ML VIAL FS PRN (08:37)
[2019-05-25] MEDS: Enoxaparin Sodium 40 MG/0.4 ML SYRINGE SC SCH (09:19)
[2019-05-25] MEDS: Pantoprazole 40 MG VIAL IVP SCH ×2 (09:21→22:17)
[2019-05-25] MEDS: Lidocaine Patch Removal 1 EACH TOP SCH (11:54)
--- NOTE | 2019-05-25 13:05 | PDOC.HOSPP ---
- Subjective Encounter Date: 05/25/19 Encounter Time: 09:25 Subjective: no nausea or abd pain feels better overnight events noted - Objective Vital Signs & Weight: Vital Signs (12 hours) Temp Pulse Resp BP BP Pulse Ox 05/25/19 12:00 98.4 F 122 H 17 137/87 94 L 05/25/19 07:50 96.9 F L 123 H 16 153/81 H 93 L 05/25/19 04:00 97.3 F L 126 H 18 143/67 H 100 05/25/19 01:45 97.5 F L 142 H 19 118/87 99 05/25/19 01:38 97.7 F 136 H 20 128/94 H 100 Weight Admit Weight 148 lb Weight 148 lb 12.8 oz I&O: 05/24/19 05/25/19 05/26/19 06:59 06:59 07:59 Intake Total 350 650 Output Total 1610 1650 Balance -1260 -1000 Result Diagrams: 05/25/19 04:41 05/25/19 04:41 Hospitalist ROS - Medication Medications: Active Medications Generic Name Dose Route Start Last Admin Trade Name Freq PRN Reason Stop Dose Admin Fentanyl 25 mcg 05/24/19 08:00 05/24/19 08:24 Duragesic TD 25 mcg Q3D MITCH Administration Piperacillin Sod/Tazobactam 100 mls @ 200 mls/hr 05/23/19 18:00 05/25/19 09: 19 Sod 3.375 gm/ Sodium Chloride IVPB 100 mls 0200,1000,1800 MITCH Administration Potassium Chloride/Sodium Chloride 1,000 mls @ 100 mls/hr 05/24/19 09:00 10/06 01:18 Ns 0.9% W/ 20 Meq Kcl IV 1,000 mls .Q10H MITCH Administration Lidocaine 1 patch 05/23/19 21:00 05/24/19 20:10 Lidoderm 5% Patch TD 1 patch 2100 MITCH Administration Miscellaneous Medication 1 each 05/24/19 09:00 05/25/19 11:54 Lidocaine Patch Removal TOP Not Given 0900 MITCH Ondansetron HCl 4 mg 05/23/19 14:19 05/23/19 19:15 Zofran IVP 4 mg Q6H PRN Administration Nausea/Vomiting Pantoprazole Sodium 40 mg 05/25/19 09:00 05/25/19 09:21 Protonix IVP 40 mg Q12HR MITCH Administration - Exam General Appearance: awake alert Eye: PERRL, anicteric sclera ENT: no oropharyngeal lesions, moist mucosa Neck: supple, no JVD Heart: no murmur, no rubs Respiratory: no wheezes, no rales Gastrointestinal: soft, non-tender, non-distended, normal bowel sounds Gastrointestinal - other findings: ileostomy has liq stool Extremities: no cyanosis, no edema Neurological: cranial nerve grossly intact, no focal deficits Psychiatric: normal affect, A&O x 3 Hosp A/P (1) Small bowel obstruction Code(s): K56.609 - UNSP INTESTNL OBST, UNSP TO PARTIAL VERSUS COMPLETE OBST Status: Acute (2) Moderate dehydration Code(s): E86.0 - DEHYDRATION Status: Acute (3) FTT (failure to thrive) in adult Status: Chronic (4) HTN (hypertension) Code(s): I10 - ESSENTIAL (PRIMARY) HYPERTENSION Status: Chronic (5) Dyslipidemia Code(s): E78.5 - HYPERLIPIDEMIA, UNSPECIFIED Status: Chronic (6) COPD (chronic obstructive pulmonary disease) Status: Chronic Qualifiers: COPD type: chronic bronchitis (7) Chronic pain syndrome Code(s): G89.4 - CHRONIC PAIN SYNDROME Status: Chronic (8) Chronic back pain Code(s): M54.9 - DORSALGIA, UNSPECIFIED; G89.29 - OTHER CHRONIC PAIN Status: Chronic Qualifiers: Back pain location: low back pain (9) GM (acute kidney injury) Code(s): N17.9 - ACUTE KIDNEY FAILURE, UNSPECIFIED Status: Acute - Plan sbo is resolving, had increased ng output yesterday, its better this am diet per gen surgery advice, may start full liq diet if ok with gen surgery may remove ng tube if ok with gen surgery electrolytes are stable gentle iv hydration, gm, has h/o high output ileostomy. PT to mobilize as tolerated CM looking into skilled placement has fentanyl tts, nebs, lidocaine tts. empiric zosyn, blood and urine cs are -ve, wbc still around 20k
[2019-05-25] MEDS ORDERED: Magnesium Sulfate 2 GM in Sodium Chloride 0.9% 100 ML IVPB SCH (14:30)
[2019-05-25] MEDS ORDERED: MAGNESIUM SULFATE IVPB SCH (14:45)
[2019-05-25] MEDS ORDERED: SODIUM CHLORIDE 0.9% IVPB SCH (14:45)
[2019-05-25] MEDS ORDERED: POTASSIUM CHLORIDE IVPB SCH (14:45)
[2019-05-25] MEDS ORDERED: Sodium Chloride 0.9% 1,000 ML IV SCH (16:15)
[2019-05-25] MEDS: Lactated Ringer's 1,000 ML IV SCH (18:28)
--- NOTE | 2019-05-25 18:48 | PRG ---
DATE OF SERVICE: 05/25/2019 SUBJECTIVE: Ms. Jones is a 78-year-old woman who was admitted on 2019 with acute small-bowel obstruction, which is being managed conservatively. The patient was seen in consultation by Dr. Bustillos yesterday, recommending non-operative management. Nasogastric tube is being placed overnight and output had dwindled. I clamped NG tube this morning and at 4 hours only 54 mL of clear gastric effluent was returned. On my re-evaluation 2 hours later, the patient remains with no abdominal pain. No nausea or vomiting. Nasogastric tube was removed. OBJECTIVE: VITAL SIGNS: Currently include blood pressure 137/87, pulse is 110, respiratory rate is 16, temperature is 97.8 degrees Fahrenheit, and oxygen saturation is 98% on room air. HEART: Reveals regular rate with sinus tachycardia. No murmurs or gallops auscultated. LUNGS: Clear to auscultation bilaterally. Breathing, regular and nonlabored. ABDOMEN: Soft, nontender, and nondistended. Ileostomy is viable with some liquid stool mixed with oral x-ray contrast. LABORATORY FINDINGS: Today includes CBC with 20,100 white blood cells, this is down from 24,100 yesterday, which is an improvement from 27,800 two days previously. Hemoglobin and hematocrit remained stable at 14.9 and 46.5 respectively. Platelet count is 261,000. Metabolic profile; sodium 147, potassium 3.5, chloride is 101, bicarb is 25, BUN is 36, creatinine is 2.26, glucose is 138, and magnesium is 1.8. IMPRESSION: 1. Resolving acute small-bowel obstruction. 2. Acute kidney injury likely secondary to relative hypovolemia. 3. Acute hypokalemia. 4. Acute hypomagnesemia. PLAN: 1. Correct abnormal electrolytes. 2. We will resume clear liquid diet and advance as tolerated. 3. No acute surgical indication for this patient at this time. Above findings and plan discussed with the patient and her daughter at bedside. 4. We will increase overall total fluid intake. Job ID: [id number] MTDD
[2019-05-25] MEDS ORDERED: traMADol HCl 50 MG TAB PO PRN (20:26)
[2019-05-25] MEDS: Lidocaine 5% Patch TD SCH (22:17)
[2019-05-25] MEDS: Acetaminophen 325 MG TAB PO SCH (22:18)
[2019-05-26] MEDS: Cholestyramine/Aspartame 4 gm Packet PO SCH ×3 (00:26→22:20)
--- NOTE | 2019-05-26 03:22 | CON ---
DATE OF CONSULTATION: 05/25/2019 CONSULTING PHYSICIAN: Dr. Hartley. REASON FOR CONSULTATION: Acute kidney injury. REASON FOR ADMISSION: Belly pain, nausea, vomiting. HISTORY OF PRESENT ILLNESS: A 78-year-old female with history of ischemic bowel, small-bowel obstruction, depression, anxiety, came to the hospital with nausea, vomiting, was found to have small-bowel obstruction and is being treated. Her creatinine jumped to 2.5 today from a baseline of around 0.8-1.3 and Nephrology is consulted. The patient has been having increased output for last few days. She was started on IV fluids. She is feeling a little bit better today. Her daughter was at the bedside. PAST MEDICAL HISTORY: Positive for ischemic bowel with sepsis and small bowel obstruction, anxiety, depression, ITP, COPD, hypertension, and hyperlipidemia. PAST SURGICAL HISTORY: Cholecystectomy, hysterectomy, splenectomy, appendectomy, subtotal colectomy. HOME MEDICATIONS: Reviewed. ALLERGIES: LATEX AND MORPHINE. SOCIAL HISTORY: No smoking, alcohol, or drugs. FAMILY HISTORY: No history of kidney disease. REVIEW OF SYSTEMS: The following complete review of systems was negative, unless otherwise mentioned in the HPI or below: Constitutional: Weight loss or gain, ability to conduct usual activities. Skin: Rash, itching. Eyes: Double vision, pain. ENT/Mouth: Nose bleeding, neck stiffness, pain, tenderness. Cardiovascular: Palpitations, dyspnea on exertion, orthopnea. Respiratory: Shortness of breath, wheezing, cough, hemoptysis, fever or night sweats. Gastrointestinal: Poor appetite, abdominal pain, heartburn, nausea, vomiting, constipation, or diarrhea. Genitourinary: Urgency, frequency, dysuria, nocturia. Musculoskeletal: Pain, swelling. Neurologic/Psychiatric: Anxiety, depression. Allergy/Immunologic: Skin rash, bleeding tendency. PHYSICAL EXAMINATION: GENERAL: This is a well-built female, in no apparent distress. VITAL SIGNS: Temperature 97.8, pulse 110, respiratory rate 16, blood pressure 138/65. HEENT: Atraumatic, normocephalic. Oral mucosa dry. NECK: Supple. CV: S1 and S2 heard. RESPIRATORY: Clear. GASTROINTESTINAL: Abdomen is soft. MUSCULOSKELETAL: 1+ edema. DERMATOLOGIC: No skin rash. NEUROLOGIC: Alert and awake. PSYCHIATRIC: Mood and affect normal. LABORATORY DATA: Hemoglobin is 14.9, potassium is 3.5, BUN is 36, and creatinine is 2.2. ASSESSMENT AND PLAN: 1. Acute kidney injury, most likely volume depletion. Increase IV fluids to 150 mL per hour. Surgery recommended LR, so plan is to continue lactated Ringer at 150 mL an hour. 2. Hypernatremia. Patient started drinking fluid and should be better. 3. Hypokalemia, replace. 4. Azotemia. 5. Anemia. 6. Small bowel obstruction. 7. Nausea, vomiting. 8. Continue IV fluids as tolerated. Avoid nephrotoxins and renally dose the medications. We will follow. Thank you for the consult. Job ID: [id number]
[2019-05-26] MEDS: Lactated Ringer's 1,000 ML IV SCH ×5 (04:38→22:29)
[2019-05-26] MEDS: Acetaminophen 325 MG TAB PO SCH ×4 (04:38→19:45)
[2019-05-26 04:41] LABS: #Basophils 0.1 thou/uL (0.0-0.2); #Eosinphils 0.2 thou/uL (0.0-0.7); #Lymphocytes 4.8 thou/uL (1.20-3.40); #Monocytes 1.9 thou/uL (0.11-0.59); #Neutrophils 11.8 thou/uL (1.40-6.50); %Basophils 0.7 % (0.0-1.0); %Eosinophils 0.8 % (0.0-10.0); %Lymphocytes 25.6 % (21.0-51.0); %Monocytes 10.2 % (0.0-10.0); %Neutrophils 62.7 % (42.0-75.0); Hemoglobin 11.8 g/dL (12.0-16.0); Mean Corpuscular HGB CONC 31.6 g/dL (32.0-36.0); Mean Corpuscular Hemoglobin 28.4 pg (27.0-31.0); Mean Corpuscular Volume 89.8 fL (78.0-98.0); Mean Platelet Volume 11.1 fL (7.4-10.4); Platelet Count 294 thou/uL (130-400); Red Blood Cell (RBC) Count 4.15 mill/uL (4.20-5.40); White Blood Cell (WBC) Count 18.8 thou/uL (4.8-10.8)
[2019-05-26 05:01] VITALS: BMI 26.5
[2019-05-26 05:04] LABS: Anion Gap 15 mmol/L (10-20); BUN (Urea Nitrogen) 38 mg/dL (9.8-20.1); Calc. Creatinine Clearance 23 mL/min (70-130); Carbon Dioxide 29 mmol/L (23-31); Chloride 102 mmol/L (98-107); Estimated GFR-MDRD 24; Glucose 86 mg/dL (83-110); Potassium 3.1 mmol/L (3.5-5.1); Sodium 143 mmol/L (136-145)
--- NOTE | 2019-05-26 05:36 | PRG ---
DATE OF SERVICE: 05/26/2019 SUBJECTIVE: The patient is currently on the telemetry floor. She has been seen on coverage for consultation for an acute small bowel obstruction. Today, the patient's NG tube was removed and she was started on clear liquid diet. At the time of visit, she was tolerating a diet. She denies any nausea or vomiting. She continues to ambulate. She did have some flatus, but has not had a return of bowel function yet. PHYSICAL EXAMINATION: VITAL SIGNS: Stable with persistent tachycardia that the primary team and Nephrology believe this is related to her high-output ileostomy and dehydration. She is currently being rehydrated by the primary team. GENERAL: The patient is resting comfortably in bed. She is awake, conversant, and appropriate. LUNGS: Clear to auscultation bilaterally. HEART: Tachycardic. Regular rhythm. ABDOMEN: Soft with active bowel sounds. Nondistended. ASSESSMENT: 1. Acute small bowel obstruction, resolving. 2. Acute kidney injury, likely secondary to relative hypovolemia. PLAN: Plan will to be to continue to advance diet as tolerated. Encourage out of bed and ambulation. There are no surgical indications for this patient at this time. We will reassess the patient until bowel function returns. Job ID: [id number]
[2019-05-26] MEDS ORDERED: Potassium Phosphate 20 MMOL in Sodium Chloride 0.9% 250 ML 250 ML IVPB SCH (08:15)
[2019-05-26 08:32] LABS: Magnesium 2.7 mg/dL (1.6-2.6); Phosphorus 4.9 mg/dL (2.3-4.7)
[2019-05-26] MEDS: Enoxaparin Sodium 30 MG/0.3 ML SYRINGE SC SCH (09:21)
[2019-05-26] MEDS: Pantoprazole 40 MG VIAL IVP SCH ×2 (09:22→19:46)
[2019-05-26] MEDS: Lidocaine Patch Removal 1 EACH TOP SCH (09:22)
--- NOTE | 2019-05-26 12:28 | PRG ---
DATE OF SERVICE: 05/26/2019 SUBJECTIVE: Ms. Jones is a 78-year-old woman, who was admitted 3 days previously with abdominal pain and diagnosed with acute small-bowel obstruction. This was managed nonoperatively with nasogastric tube decompression, bowel rest and IV hydration. Nasogastric tube was removed yesterday. The patient was started on a clear liquid diet. She reports no return of abdominal pain, nausea, or vomiting. High ileostomy is productive of liquid stool mixed with previous oral contrast. Urinary output is adequate over the last 24 hours for this patient's age and weight. OBJECTIVE: VITAL SIGNS: Currently include blood pressure 128/69, pulse 90, respirations 18, maximum temperature in the last 24 hours is 97.9 degrees Fahrenheit, and oxygen saturation 98% on room air. HEART: Reveals regular rate and rhythm. LUNGS: Clear to auscultation bilaterally. Her breathing is regular and nonlabored. ABDOMEN: Soft, nontender, and nondistended. Ileostomy is viable and functional with liquid stool mixed with oral contrast. NEUROLOGIC: Reveals no focal deficits present. LABORATORY FINDINGS: Today include a CBC with 18,800 white blood cells, this is down from 20,100 yesterday and 20,800 on admission. Hemoglobin and hematocrit 11.8 and 37.3 respectively. Platelet count is 294,000. Metabolic profile; sodium 143, potassium 3.1, chloride is 102, bicarb is 29, BUN is 38, and creatinine is 2.02. BUN and creatinine yesterday 36 and 2.26 respectively. Glucose today 86, magnesium 2.7, and phosphorus is 4.9. IMPRESSIONS: 1. Postadmission day #3, status post acute small bowel obstruction, resolved. 2. Acute hypokalemia. 3. Acute kidney injury, slightly resolving. PLAN: 1. Correct abnormal electrolytes. 2. Continue with IV fluids at current rate as the patient continues to increase oral intake. Her acute hyponatremia is now resolved. 3. Increase activity per Physical and Occupational Therapy. 4. Anticipate discharge to inpatient rehabilitation over the next 24 to 48 hours if the patient remains stable. Job ID: [id number]
--- NOTE | 2019-05-26 12:50 | PDOC.HOSPP ---
- Subjective Encounter Date: 05/26/19 Encounter Time: 09:45 Subjective: is eating her breakfast no nausea or vomiting no c/o chest pain or palpitations - Objective Vital Signs & Weight: Vital Signs (12 hours) Temp Pulse Resp BP BP Pulse Ox 05/26/19 12:01 97.7 F 104 H 16 145/63 H 100 05/26/19 07:55 96.9 F L 105 H 16 128/69 99 05/26/19 04:00 98 05/26/19 03:38 97.9 F 90 18 130/66 98 Weight Admit Weight 148 lb Weight 145 lb 1.6 oz I&O: 05/25/19 05/26/19 05/27/19 05:59 06:59 06:59 Intake Total Output Total Balance Result Diagrams: 05/26/19 04:13 05/26/19 04:14 Hospitalist ROS - Medication Medications: Active Medications Generic Name Dose Route Start Last Admin Trade Name Khrisq PRN Reason Stop Dose Admin Acetaminophen 650 mg 05/25/19 21:00 05/26/19 12:18 Tylenol PO Not Given 0300,0900,1500,2100 [facility] Cholestyramine Resin 4 gm 05/25/19 22:00 05/26/19 12:18 Questran Light PO Not Given 1000,2200 [facility] Enoxaparin Sodium 30 mg 05/26/19 09:00 05/26/19 09:21 Lovenox SC 30 mg 0900 [facility] Administration Fentanyl 25 mcg 05/24/19 08:00 05/24/19 08:24 Duragesic TD 25 mcg Q3D [facility] Administration Lactated Ringer's 1,000 mls @ 150 mls/hr 05/25/19 18:00 05/26/19 09:19 Lactated Ringer's IV Not Given .Q6H40M [facility] Potassium Phosphate 20 mmol/ 256.6667 mls @ 62.5 mls/hr 05/26/19 08:15 09:21 Sodium Chloride IVPB 05/26/19 13:00 256.6667 mls NOW [facility] Administration Lidocaine 1 patch 05/23/19 21:00 05/25/19 22:17 Lidoderm 5% Patch TD 1 patch 2100 [facility] Administration Miscellaneous Medication 1 each 05/24/19 09:00 05/26/19 09:22 Lidocaine Patch Removal TOP Not Given 0900 [facility] Ondansetron HCl 4 mg 05/23/19 14:19 05/23/19 19:15 Zofran IVP 4 mg Q6H PRN Administration Nausea/Vomiting Pantoprazole Sodium 40 mg 05/25/19 09:00 05/26/19 09:22 Protonix IVP 40 mg Q12HR [facility] Administration - Exam General Appearance: awake alert Eye: PERRL, anicteric sclera ENT: no oropharyngeal lesions, dry oral mucosa Neck: supple, no JVD Heart: RRR, no gallops Respiratory: no wheezes, no rales Gastrointestinal: soft, non-tender, non-distended, normal bowel sounds Gastrointestinal - other findings: ileostomy has liq stools Extremities: no cyanosis, no edema Neurological: cranial nerve grossly intact, no focal deficits Hosp A/P (1) Small bowel obstruction Code(s): K56.609 - UNSP INTESTNL OBST, UNSP TO PARTIAL VERSUS COMPLETE OBST Status: Resolved (2) Moderate dehydration Code(s): E86.0 - DEHYDRATION Status: Acute (3) FTT (failure to thrive) in adult Status: Chronic (4) HTN (hypertension) Code(s): I10 - ESSENTIAL (PRIMARY) HYPERTENSION Status: Chronic (5) Dyslipidemia Code(s): E78.5 - HYPERLIPIDEMIA, UNSPECIFIED Status: Chronic (6) COPD (chronic obstructive pulmonary disease) Status: Chronic Qualifiers: COPD type: chronic bronchitis (7) Chronic pain syndrome Code(s): G89.4 - CHRONIC PAIN SYNDROME Status: Chronic (8) Chronic back pain Code(s): M54.9 - DORSALGIA, UNSPECIFIED; G89.29 - OTHER CHRONIC PAIN Status: Chronic Qualifiers: Back pain location: low back pain (9) CORY (acute kidney injury) Code(s): N17.9 - ACUTE KIDNEY FAILURE, UNSPECIFIED Status: Acute - Plan sbo resolved, has large amounts of ileostomy drainage diet per gen surgery advice. electrolytes are stable gentle iv hydration, cory, has h/o high output ileostomy in the past as well. PT to mobilize as tolerated CM looking into skilled placement has fentanyl tts, nebs, lidocaine tts. elevated wbc due to margination and dehydration, no signs of infection, is off antibiotics from 05/25/2019.
--- NOTE | 2019-05-26 13:27 | PRG ---
DATE OF SERVICE: 05/26/2019 SUBJECTIVE: Patient was seen and examined at bedside and overnight events noted. Patient denies any shortness of breath or chest pain or palpitation. No history of nausea or vomiting or diarrhea or fever or chills or cramps. OBJECTIVE: GENERAL: This is an elderly, in no apparent distress. VITAL SIGNS: Temperature 97.7. Heart rate 104. Respiratory rate 16. Blood pressure 122/69. HEENT: Atraumatic, normocephalic. Oral mucosa is moist NECK: Supple. CARDIOVASCULAR: S1, S2 heard. Rate and rhythm regular. RESPIRATORY: Clear to auscultation. GASTROINTESTINAL: Abdomen is soft. MUSCULOSKELETAL: No tenderness. No edema. DERMATOLOGIC: No skin rash. NEUROLOGIC: Alert and awake and oriented X3. No focal neurologic deficits. Moving all the extremities. PSYCHIATRIC: Mood and affect normal. LABORATORY DATA: Potassium 3.1, BUN is 38, and creatinine is 2.0. ASSESSMENT AND PLAN: 1. Acute kidney injury, getting better, seems to be volume depletion. Continue hydration. 2. Hypokalemia, replace. 3. Monitor electrolytes. 4. Hyponatremia. 5. Anemia. 6. Small-bowel obstruction. 7. Nausea and vomiting. Labs are better. Continue hydration and monitor closely. Job ID: [id number]
[2019-05-26] MEDS: Lidocaine 5% Patch TD SCH (19:45)
[2019-05-27] MEDS: SUMAtriptan Succinate 50 MG TAB PO PRN (00:54)
[2019-05-27] MEDS: Acetaminophen 325 MG TAB PO SCH ×4 (03:55→21:12)
[2019-05-27 04:32] LABS: #Basophils 0.1 thou/uL (0.0-0.2); #Eosinphils 0.4 thou/uL (0.0-0.7); #Lymphocytes 4.3 thou/uL (1.20-3.40); #Neutrophils 7.8 thou/uL (1.40-6.50); %Basophils 0.5 % (0.0-1.0); %Eosinophils 2.6 % (0.0-10.0); %Lymphocytes 31.5 % (21.0-51.0); %Monocytes 7.4 % (0.0-10.0); Hemoglobin 11.4 g/dL (12.0-16.0); Mean Corpuscular HGB CONC 31.9 g/dL (32.0-36.0); Mean Corpuscular Hemoglobin 28.3 pg (27.0-31.0); Mean Corpuscular Volume 88.6 fL (78.0-98.0); Mean Platelet Volume 10.2 fL (7.4-10.4); Platelet Count 283 thou/uL (130-400); RBC Distribution Width 15.9 % (11.5-14.5); Red Blood Cell (RBC) Count 4.02 mill/uL (4.20-5.40); White Blood Cell (WBC) Count 13.5 thou/uL (4.8-10.8)
[2019-05-27 04:46] LABS: Anion Gap 13 mmol/L (10-20); BUN (Urea Nitrogen) 22 mg/dL (9.8-20.1); Calc. Creatinine Clearance 52 mL/min (70-130); Calcium 8.9 mg/dL (7.8-10.44); Carbon Dioxide 26 mmol/L (23-31); Chloride 105 mmol/L (98-107); Estimated GFR-MDRD 59; Glucose 75 mg/dL (83-110); Potassium 3.3 mmol/L (3.5-5.1); Sodium 141 mmol/L (136-145)
[2019-05-27] MEDS: Lactated Ringer's 1,000 ML IV SCH (06:19)
[2019-05-27] MEDS ORDERED: Lactated Ringer's 1,000 ML IV SCH (08:45)
[2019-05-27] MEDS: Potassium Chloride 20 MEQ in Lactated Ringer's 1,000 ML IV SCH ×2 (09:33→19:27)
[2019-05-27] MEDS: Lidocaine Patch Removal 1 EACH TOP SCH (09:43)
[2019-05-27] MEDS: Enoxaparin Sodium 30 MG/0.3 ML SYRINGE SC SCH (09:43)
[2019-05-27] MEDS: Cholestyramine/Aspartame 4 gm Packet PO SCH ×2 (09:44→21:12)
[2019-05-27] MEDS ORDERED: Diphenoxylate HCl/Atropine Tablet PO SCH (13:00)
--- NOTE | 2019-05-27 13:12 | PRG ---
DATE OF SERVICE: 05/27/2019 SUBJECTIVE: Ms. Jones has been hospitalized since May 22 with an apparent small bowel obstruction leading up to her ileostomy. This is treated with a nasogastric tube and conservative management. Her obstructive process resolved after a couple of days and her nasogastric tube was removed on May 24. She tolerated clear liquid diet and has been advanced up to a full liquid diet. She denies nausea or vomiting or abdominal pain. She tells me her ileostomy has been working well. She tells me she has been walking with physical therapy. OBJECTIVE: VITAL SIGNS: She is afebrile. Pulse is 80 and blood pressure is 130/59. Her stool output for yesterday is recorded as being 1800 mL. LUNGS: Clear to auscultation. ABDOMEN: Soft, nontender, and nondistended. LABORATORY DATA: Her CBC shows white blood cell count has dropped down to 13.5 with a hemoglobin of 11.4, platelet count is 283. Chemistries reveal that her electrolytes are normal except the potassium is a little bit low at 3.3. Her creatinine is normal at 0.9. It went up as high as 2.2. Her phosphorus and magnesium are both elevated. ASSESSMENT: The patient seems to be improving. Her obstructive process has resolved. It is fine to advance her diet. She has tolerated a full liquid diet. I will therefore advance her up to soft diet. She is still getting 100 mL/h of IV fluid with lactated Ringer's with potassium. I placed her on the potassium containing fluid because the potassium was a little bit low this morning. The goal from here on out is the same as it always has been and that is to make sure that she can take enough by mouth to compensate for the output from her ileostomy. It may be worthwhile to consult Gastroenterology to see if they have any input regarding the output from her ileostomy. In regard to her bowel obstruction, she has had CT findings consistent with bowel obstruction at least twice. If this persist in occurring, then we may need to consider a laparotomy to identify and treat the area of the obstruction. I do not think she is a good candidate for reanastomosis of her small bowel to her distal colon. I think that she will end up having uncontrolled diarrhea, which will be harder to manage than her ileostomy output. I would recommend removing as many of her medications orally as possible and seeing if she can be weaned off her IV fluids while still avoiding evidence of hypovolemia. Job ID: [id number]
--- NOTE | 2019-05-27 20:27 | PDOC.HOSPP ---
- Subjective Encounter Date: 05/27/19 Subjective: The patient still complaining of significant output from her ileostomy. She is tolerating full liquid diet. Her diet was advanced to soft today. - Objective Vital Signs & Weight: Vital Signs (12 hours) Temp Pulse Resp BP BP Pulse Ox 05/27/19 19:15 98.3 F 78 18 120/82 95 05/27/19 16:00 98.5 F 80 16 114/57 L 99 05/27/19 12:00 98.4 F 76 20 113/60 99 Weight Admit Weight 148 lb Weight 145 lb 1.6 oz I&O: 05/26/19 05/27/19 05/28/19 06:59 06:59 06:59 Intake Total 4022 1700 Output Total 1820 675 Balance 2202 1025 Result Diagrams: 05/27/19 04:20 05/27/19 04:20 Hospitalist ROS - Medication Medications: Active Medications Generic Name Dose Route Start Last Admin Trade Name Freq PRN Reason Stop Dose Admin Acetaminophen 650 mg 05/25/19 21:00 05/27/19 14:40 Tylenol PO Not Given 0300,0900,1500,2100 [facility] Cholestyramine Resin 4 gm 05/25/19 22:00 05/27/19 09:44 Questran Light PO 4 gm 1000,2200 [facility] Administration Enoxaparin Sodium 30 mg 05/26/19 09:00 05/27/19 09:43 Lovenox SC 30 mg 0900 [facility] Administration Fentanyl 25 mcg 05/24/19 08:00 05/27/19 09:32 Duragesic TD 25 mcg Q3D [facility] Administration Potassium Chloride 20 meq/ 1,010 mls @ 100 mls/hr 05/27/19 08:45 05/27/19 19: 27 Lactated Ringer's IV 1,010 mls .Q10H6M [facility] Administration Lidocaine 1 patch 05/23/19 21:00 05/26/19 19:45 Lidoderm 5% Patch TD 1 patch 2100 [facility] Administration Miscellaneous Medication 1 each 05/24/19 09:00 05/27/19 09:43 Lidocaine Patch Removal TOP Not Given 0900 [facility] Ondansetron HCl 4 mg 05/23/19 14:19 05/23/19 19:15 Zofran IVP 4 mg Q6H PRN Administration Nausea/Vomiting Pantoprazole Sodium 40 mg 05/27/19 09:00 05/27/19 09:44 Protonix PO Not Given BID [facility] Sumatriptan Succinate 50 mg 05/25/19 20:27 05/27/19 00:54 Imitrex PO 50 mg Q4H PRN Administration Migraine Headache - Exam General Appearance: NAD ENT: normocephalic atraumatic Neck: supple, no JVD Heart: RRR, no murmur, no gallops, no rubs Respiratory: CTAB, no wheezes, no rales, no ronchi Gastrointestinal: soft, non-tender, non-distended, normal bowel sounds Extremities: no cyanosis Hosp A/P (1) GM (acute kidney injury) Code(s): N17.9 - ACUTE KIDNEY FAILURE, UNSPECIFIED Status: Acute (2) High output ileostomy Code(s): R19.8 - OTH SYMPTOMS AND SIGNS INVOLVING THE DGSTV SYS AND ABDOMEN; Z93.2 - ILEOSTOMY STATUS Status: Acute (3) Hypokalemia Code(s): E87.6 - HYPOKALEMIA Status: Acute (4) Small bowel obstruction Code(s): K56.609 - UNSP INTESTNL OBST, UNSP TO PARTIAL VERSUS COMPLETE OBST Status: Resolved - Plan No evidence of small bowel obstruction at this time. Acute kidney injury resolved with IV hydration. We are able to maintain her fluid balance with IV fluids to compensate for the high output ileostomy. The patient is tolerating a full liquid diet and her diet will be advanced as tolerated. If the patient is unable to tolerate enough p.o. to compensate for her ileostomy output, we will consult gastroenterology for further input.
[2019-05-27] MEDS: Lidocaine 5% Patch TD SCH (21:13)
[2019-05-28] MEDS: Acetaminophen 325 MG TAB PO SCH ×4 (05:32→20:13)
[2019-05-28] MEDS: Potassium Chloride 20 MEQ in Lactated Ringer's 1,000 ML IV SCH (05:32)
[2019-05-28 05:58] LABS: Anion Gap 11 mmol/L (10-20); BUN (Urea Nitrogen) 12 mg/dL (9.8-20.1); Calc. Creatinine Clearance 66 mL/min (70-130); Calcium 8.6 mg/dL (7.8-10.44); Carbon Dioxide 22 mmol/L (23-31); Chloride 110 mmol/L (98-107); Estimated GFR-MDRD 78; Glucose 82 mg/dL (83-110); Potassium 3.4 mmol/L (3.5-5.1); Sodium 140 mmol/L (136-145)
[2019-05-28 06:12] LABS: Band 2 % (5-11); Hemoglobin 10.2 g/dL (12.0-16.0); Lymphocytes 39 % (21-51); MDiff Complete? YES; Mean Corpuscular Hemoglobin 27.9 pg (27.0-31.0); Metamyelocyte 2 % (0-0); Monocytes 6 % (0-10); Neutrophil 51 % (42-75); Nucleated RBC 1 % (0); Platelet Count 266 thou/uL (130-400); Platelet Morphology Comment Appears Adequate; RBC Distribution Width 15.7 % (11.5-14.5); Red Blood Cell (RBC) Count 3.65 mill/uL (4.20-5.40); White Blood Cell (WBC) Count 13.1 thou/uL (4.8-10.8)
[2019-05-28] MEDS: Lidocaine Patch Removal 1 EACH TOP SCH (09:27)
[2019-05-28] MEDS: Enoxaparin Sodium 30 MG/0.3 ML SYRINGE SC SCH (09:29)
--- NOTE | 2019-05-28 09:35 | PRG ---
DATE OF SERVICE: 05/28/2019 SUBJECTIVE: Ms. Jones is hospital day #6 on this admission, having been admitted for small bowel obstruction. All obstructive issues have resolved. She is tolerating a soft diet and her ileostomy has been functioning well. She is voiding uneventfully. She tells me she participated with physical therapy. She denies abdominal pain or nausea or vomiting. PHYSICAL EXAMINATION: VITAL SIGNS: She is afebrile, temperature is 97.5, pulse is 70, and blood pressure 109/56. LUNGS: Clear to auscultation. ABDOMEN: Soft, nontender, and nondistended. Normoactive bowel sounds. Well-functioning ileostomy. LABORATORY DATA: Her basic metabolic panel is unremarkable. Her potassium is slightly low at 3.4. Her creatinine has continued to drop and was 0.9 yesterday, it is 0.7 today. Her CBC is unremarkable with a white blood cell count of 13 and hemoglobin of 10. ASSESSMENT AND PLAN: She continues to improve. She tells me that her IV came out during the night and has not yet been restarted. From my standpoint, I think it would be reasonable to give her a trial to see if she can take enough by mouth with no IV fluid that she can avoid dehydration. I will therefore order to discontinue her IV fluids for now and we can see how she does through the day and if she has remained stable that she may be ready for discharge tomorrow. Job ID: [id number]
[2019-05-28] MEDS: Cholestyramine/Aspartame 4 gm Packet PO SCH ×2 (10:52→20:13)
--- NOTE | 2019-05-28 11:45 | PDOC.HOSPP ---
- Subjective Encounter Date: 05/28/19 Subjective: Tolerating PO intake No new complains - Objective Vital Signs & Weight: Vital Signs (12 hours) Temp Pulse Resp BP BP Pulse Ox 05/28/19 08:00 98.3 F 95 18 140/61 100 05/28/19 04:00 97.5 F L 70 18 109/56 L 96 Weight Admit Weight 148 lb Weight 145 lb 1.6 oz I&O: 05/27/19 05/28/19 05/29/19 06:59 06:59 06:59 Intake Total 4022 4163 Output Total 1820 1377 Balance 2202 5673 Result Diagrams: 05/28/19 05:30 05/28/19 05:30 Hospitalist ROS - Medication Medications: Active Medications Generic Name Dose Route Start Last Admin Trade Name Freq PRN Reason Stop Dose Admin Acetaminophen 650 mg 05/25/19 21:00 05/28/19 09:24 Tylenol PO 650 mg 0300,0900,1500,2100 [facility] Administration Cholestyramine Resin 4 gm 05/25/19 22:00 05/28/19 10:52 Questran Light PO 4 gm 1000,2200 [facility] Administration Enoxaparin Sodium 30 mg 05/26/19 09:00 05/28/19 09:29 Lovenox SC 30 mg 0900 [facility] Administration Fentanyl 25 mcg 05/24/19 08:00 05/27/19 09:32 Duragesic TD 25 mcg Q3D [facility] Administration Lidocaine 1 patch 05/23/19 21:00 05/27/19 21:13 Lidoderm 5% Patch TD 1 patch 2100 [facility] Administration Miscellaneous Medication 1 each 05/24/19 09:00 05/28/19 09:27 Lidocaine Patch Removal TOP Not Given 0900 [facility] Ondansetron HCl 4 mg 05/23/19 14:19 05/23/19 19:15 Zofran IVP 4 mg Q6H PRN Administration Nausea/Vomiting Pantoprazole Sodium 40 mg 05/27/19 09:00 05/28/19 09:26 Protonix PO 40 mg BID [facility] Administration Sumatriptan Succinate 50 mg 05/25/19 20:27 05/27/19 00:54 Imitrex PO 50 mg Q4H PRN Administration Migraine Headache - Exam General Appearance: NAD ENT: normocephalic atraumatic Neck: supple, no JVD Heart: RRR Respiratory: CTAB Gastrointestinal: soft Neurological: cranial nerve grossly intact, no focal deficits Hosp A/P (1) MG (acute kidney injury) Code(s): N17.9 - ACUTE KIDNEY FAILURE, UNSPECIFIED Status: Acute (2) High output ileostomy Code(s): R19.8 - OTH SYMPTOMS AND SIGNS INVOLVING THE DGSTV SYS AND ABDOMEN; Z93.2 - ILEOSTOMY STATUS Status: Acute (3) Hypokalemia Code(s): E87.6 - HYPOKALEMIA Status: Acute (4) Small bowel obstruction Code(s): K56.609 - UNSP INTESTNL OBST, UNSP TO PARTIAL VERSUS COMPLETE OBST Status: Resolved - Plan 05/26: No evidence of small bowel obstruction at this time. Acute kidney injury resolved with IV hydration. We are able to maintain her fluid balance with IV fluids to compensate for the high output ileostomy. The patient is tolerating a full liquid diet and her diet will be advanced as tolerated. If the patient is unable to tolerate enough p.o. to compensate for her ileostomy output, we will consult gastroenterology for further input. 05/27: IVF discontinued PO intake encouraged. If BMP WNL tomorrow, patient will probably be ready for DC.
[2019-05-28] MEDS: Lidocaine 5% Patch TD SCH (20:14)
[2019-05-28] MEDS ORDERED: Calcium Carbonate 500 MG ChewTAB PO PRN (21:54)
[2019-05-29 04:42] LABS: Hemoglobin 11.7 g/dL (12.0-16.0); Mean Corpuscular HGB CONC 32.3 g/dL (32.0-36.0); Mean Corpuscular Hemoglobin 29.1 pg (27.0-31.0); Platelet Count 282 thou/uL (130-400); Red Blood Cell (RBC) Count 4.02 mill/uL (4.20-5.40); White Blood Cell (WBC) Count 20.1 thou/uL (4.8-10.8)
[2019-05-29 04:43] LABS: Lymphocytes 14 % (21-51); MDiff Complete? YES; Monocytes 3 % (0-10); Neutrophil 83 % (42-75); Platelet Morphology Comment Appears Adequate; RBC Morphology Normal
[2019-05-29 04:51] LABS: Anion Gap 14 mmol/L (10-20); BUN (Urea Nitrogen) 7 mg/dL (9.8-20.1); Calc. Creatinine Clearance 63 mL/min (70-130); Calcium 9.6 mg/dL (7.8-10.44); Carbon Dioxide 23 mmol/L (23-31); Chloride 105 mmol/L (98-107); Estimated GFR-MDRD 75; Glucose 90 mg/dL (83-110); Sodium 139 mmol/L (136-145)
[2019-05-29 04:57] LABS: Potassium 2.9 mmol/L (3.5-5.1)
[2019-05-29] MEDS ORDERED: Potassium Chloride 20 MEQ TAB PO SCH ×2 (05:15→08:00)
[2019-05-29] MEDS: Acetaminophen 325 MG TAB PO SCH ×4 (05:41→20:09)
[2019-05-29] MEDS: Enoxaparin Sodium 40 MG/0.4 ML SYRINGE SC SCH (08:41)
[2019-05-29] MEDS: Calcium Carbonate 500 MG ChewTAB PO SCH (08:41)
[2019-05-29] MEDS: Lidocaine Patch Removal 1 EACH TOP SCH (08:41)
[2019-05-29] MEDS: Cholestyramine/Aspartame 4 gm Packet PO SCH ×2 (09:49→22:08)
--- NOTE | 2019-05-29 12:00 | PDOC.HOSPP ---
- Subjective Encounter Date: 05/29/19 Subjective: The patient is complaining of not being able to tolerate food due to heartburn High output from Ileostomy is persistent - Objective Vital Signs & Weight: Vital Signs (12 hours) Temp Pulse Resp BP BP BP Pulse Ox 05/29/19 11:40 97.5 F L 84 16 127/65 98 05/29/19 08:39 98.5 F 84 18 139/65 97 05/29/19 04:00 97.7 F 91 18 117/53 L 96 Weight Admit Weight 148 lb Weight 145 lb 1.6 oz I&O: 05/28/19 05/29/19 05/30/19 06:59 06:59 06:59 Intake Total 4163 2287 Output Total 1377 1240 Balance 2786 1047 Result Diagrams: 05/29/19 03:33 05/29/19 03:33 Hospitalist ROS - Medication Medications: Active Medications Generic Name Dose Route Start Last Admin Trade Name Freq PRN Reason Stop Dose Admin Acetaminophen 650 mg 05/25/19 21:00 05/29/19 08:41 Tylenol PO Not Given 0300,0900,1500,2100 [facility] Calcium Carbonate 500 mg 05/29/19 09:00 05/29/19 08:41 Tums PO 500 mg DAILY [facility] Administration Calcium Carbonate 1,000 mg 05/28/19 21:54 05/28/19 22:06 Tums PO 1,000 mg Q4H PRN Administration Heartburn or Indigestion Cholestyramine Resin 4 gm 05/25/19 22:00 05/29/19 09:49 Questran Light PO 4 gm 1000,2200 [facility] Administration Enoxaparin Sodium 40 mg 05/29/19 09:00 05/29/19 08:41 Lovenox SC 40 mg 0900 [facility] Administration Fentanyl 25 mcg 05/24/19 08:00 05/27/19 09:32 Duragesic TD 25 mcg Q3D [facility] Administration Lidocaine 1 patch 05/23/19 21:00 05/28/19 20:14 Lidoderm 5% Patch TD 1 patch 2100 [facility] Administration Miscellaneous Medication 1 each 05/24/19 09:00 05/29/19 08:41 Lidocaine Patch Removal TOP Not Given 0900 [facility] Ondansetron HCl 4 mg 05/23/19 14:19 05/23/19 19:15 Zofran IVP 4 mg Q6H PRN Administration Nausea/Vomiting Pantoprazole Sodium 40 mg 05/27/19 09:00 05/29/19 08:41 Protonix PO 40 mg BID [facility] Administration Sumatriptan Succinate 50 mg 05/25/19 20:27 05/27/19 00:54 Imitrex PO 50 mg Q4H PRN Administration Migraine Headache - Exam General Appearance: NAD ENT: normocephalic atraumatic, dry oral mucosa Neck: supple Heart: RRR Respiratory: CTAB Gastrointestinal: soft, non-tender Neurological: no focal deficits Psychiatric: normal affect, A&O x 3 Hosp A/P (1) GM (acute kidney injury) Code(s): N17.9 - ACUTE KIDNEY FAILURE, UNSPECIFIED Status: Acute (2) High output ileostomy Code(s): R19.8 - OTH SYMPTOMS AND SIGNS INVOLVING THE DGSTV SYS AND ABDOMEN; Z93.2 - ILEOSTOMY STATUS Status: Acute (3) Hypokalemia Code(s): E87.6 - HYPOKALEMIA Status: Acute (4) Small bowel obstruction Code(s): K56.609 - UNSP INTESTNL OBST, UNSP TO PARTIAL VERSUS COMPLETE OBST Status: Resolved - Plan 05/26: No evidence of small bowel obstruction at this time. Acute kidney injury resolved with IV hydration. We are able to maintain her fluid balance with IV fluids to compensate for the high output ileostomy. The patient is tolerating a full liquid diet and her diet will be advanced as tolerated. If the patient is unable to tolerate enough p.o. to compensate for her ileostomy output, we will consult gastroenterology for further input. 05/27: IVF discontinued PO intake encouraged. If BMP WNL tomorrow, patient will probably be ready for DC. 05/28: High output ileostomy with inadequate po intake. Pt is refusing IV access. Protonix and maalox for heartburn. PO intake of fluids was encouraged. Continue cholestiramine. Leukocytosis worsened likely due to hemoconcentration. Repeat labs in AM Consult GI.
[2019-05-29] MEDS: Mag-Al 1200 mg/1200 mg/30 ML UDCUP PO PRN ×2 (13:01→20:09)
[2019-05-29] MEDS: Potassium Chloride 20 MEQ TAB PO SCH (17:15)
--- NOTE | 2019-05-29 18:53 | CON ---
DATE OF CONSULTATION: 05/29/2019 CHIEF COMPLAINT: Electrolyte imbalance and dehydration from high ostomy output. HISTORY OF PRESENT ILLNESS: Ms. Jones is a 78-year-old woman who underwent colon resection back in February for ischemic bowel. She has had an ileostomy and has had some complications with high ileostomy output since then and also a couple of recurrent small-bowel obstructions that resolved spontaneously. She came in this time again with abdominal distention and CT scan suggesting small-bowel obstruction. She had an NG tube placed, and again her obstruction resolved, and she was able to tolerate oral diet after that. GI was consulted regarding followup with her ileostomy output. PAST MEDICAL HISTORY: 1. Hyperlipidemia. 2. Hypertension. 3. COPD. 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 5. Uterine cancer status post hysterectomy. 6. Anxiety. 7. Depression. 8. Subarachnoid hemorrhage. PAST SURGICAL HISTORY: 1. Recent colon resection as noted above. 2. Hysterectomy. 3. Splenectomy. 4. Cholecystectomy. 5. Appendectomy. FAMILY HISTORY: Negative for GI malignancy. SOCIAL HISTORY: No alcohol, tobacco, or drugs. ALLERGIES: MORPHINE AND LATEX. CURRENT INPATIENT MEDICATIONS: Include: 1. Acetaminophen. 2. Calcium carbonate. 3. Cholestyramine. 4. Enoxaparin. 5. Fentanyl. 6. Lidocaine patch. 7. Pantoprazole. REVIEW OF SYSTEMS: Negative x10 systems reviewed except as stated in history of present illness. PHYSICAL EXAMINATION: VITAL SIGNS: Temperature 97.2, pulse 92, and blood pressure 147/62. GENERAL: She is in no acute distress. Alert and oriented x3. HEENT: Eyes have no scleral icterus. Oropharynx is clear without lesions. No cervical or supraclavicular lymphadenopathy. LUNGS: Clear to auscultation bilaterally. HEART: Regular rate and rhythm without murmur. ABDOMEN: Soft, nontender, and nondistended. Bowel sounds are present. EXTREMITIES: No lower extremity edema. LABORATORY DATA: White blood cell count 20.1, hemoglobin 11.7, and platelets 282. Creatinine 0.75. Liver tests within normal. Lipase is normal. IMPRESSION: 1. High ileostomy output. She has had hypomagnesemia and hypokalemia associated with that. She was admitted with small-bowel obstruction. First-line treatment for the high ileostomy output would be fiber and loperamide, which may complicate recurrent small-bowel obstruction. Currently, she is tolerating a fiber-restricted diet. She is on scheduled fentanyl. Her oral intake over the last couple of days has been 2 L with stool output recorded at 700 to 1200 mL. Given these findings, it may be that she can meet her needs by mouth and we will need to continue to monitor strict in's and out's. At some point, she could consider trying the Metamucil supplement to try to reduce the liquidy output; however, I will defer starting this until General Surgery would feel comfortable with that from a small-bowel obstruction standpoint. 2. Small-bowel obstruction, partial, resolved; however, this has been recurrent. 3. Electrolyte imbalance secondary to the high ileostomy output. RECOMMENDATIONS: 1. She is on scheduled opioid, fentanyl patch currently. 2. Would add fiber and loperamide once General Surgery makes this as reasonable from the small-bowel obstruction standpoint. It may be that the fiber supplement such as Metamucil might not be as obstructing as the dietary vegetable fiber. 3. She is being given a trial of cholestyramine. Job ID: [id number]
[2019-05-29] MEDS: Lidocaine 5% Patch TD SCH (20:09)
[2019-05-30] MEDS: Acetaminophen 325 MG TAB PO SCH ×4 (03:45→20:53)
[2019-05-30] MEDS: Mag-Al 1200 mg/1200 mg/30 ML UDCUP PO PRN (05:11)
[2019-05-30 05:29] LABS: Anion Gap 16 mmol/L (10-20); BUN (Urea Nitrogen) 11 mg/dL (9.8-20.1); Calc. Creatinine Clearance 42 mL/min (70-130); Calcium 10.8 mg/dL (7.8-10.44); Carbon Dioxide 29 mmol/L (23-31); Chloride 95 mmol/L (98-107); Estimated GFR-MDRD 47; Glucose 98 mg/dL (83-110); Magnesium 1.9 mg/dL (1.6-2.6); Sodium 136 mmol/L (136-145)
[2019-05-30 05:53] LABS: Eosinophils 3 % (0-10); Hemoglobin 12.9 g/dL (12.0-16.0); Large Platelets SLIGHT; Lymphocytes 28 % (21-51); MDiff Complete? YES; Mean Corpuscular HGB CONC 33.1 g/dL (32.0-36.0); Mean Corpuscular Hemoglobin 28.9 pg (27.0-31.0); Mean Corpuscular Volume 87.1 fL (78.0-98.0); Mean Platelet Volume 11.7 fL (7.4-10.4); Monocytes 3 % (0-10); Neutrophil 66 % (42-75); Platelet Count 274 thou/uL (130-400); Platelet Morphology Comment Appears Adequate; RBC Distribution Width 16.1 % (11.5-14.5); Red Blood Cell (RBC) Count 4.46 mill/uL (4.20-5.40); White Blood Cell (WBC) Count 17.2 thou/uL (4.8-10.8)
[2019-05-30] MEDS ORDERED: Potassium Chloride 20 MEQ TAB PO SCH (08:00)
[2019-05-30] MEDS: Calcium Carbonate 500 MG ChewTAB PO SCH (09:14)
[2019-05-30] MEDS: Potassium Chloride 20 MEQ TAB PO SCH ×2 (09:14→16:43)
[2019-05-30] MEDS: Lidocaine Patch Removal 1 EACH TOP SCH (09:15)
[2019-05-30] MEDS: Enoxaparin Sodium 40 MG/0.4 ML SYRINGE SC SCH (09:15)
[2019-05-30] MEDS: Ondansetron PF 4 MG/2 ML Vial IVP PRN ×2 (11:44→17:39)
[2019-05-30] MEDS: Cholestyramine/Aspartame 4 gm Packet PO SCH ×2 (11:44→21:46)
[2019-05-30] MEDS: Scopolamine 1.5 mg/72 hour Patch TD SCH (12:42)
[2019-05-30] MEDS: Potassium Chloride 10 MEQ in Dextrose 5 % And 0.9 % NaCl 1,000 ML IV SCH (12:43)
--- NOTE | 2019-05-30 14:18 | PDOC.HOSPP ---
- Subjective Encounter Date: 05/30/19 Subjective: Complained of nausea and vomiting overnight. - Objective Vital Signs & Weight: Vital Signs (12 hours) Temp Pulse Resp BP BP Pulse Ox 05/30/19 11:57 97.3 F L 79 16 131/73 97 05/30/19 08:50 97.5 F L 96 18 119/74 97 05/30/19 03:58 97.8 F 104 H 23 H 145/72 H 97 Weight Admit Weight 148 lb Weight 145 lb 1.6 oz I&O: 05/29/19 05/30/19 05/31/19 06:59 06:59 06:59 Intake Total 2287 1500 Output Total 1240 1400 Balance 1047 100 Result Diagrams: 05/30/19 04:21 05/30/19 04:21 Hospitalist ROS - Medication Medications: Active Medications Generic Name Dose Route Start Last Admin Trade Name Freq PRN Reason Stop Dose Admin Acetaminophen 650 mg 05/25/19 21:00 05/30/19 09:16 Tylenol PO Not Given 0300,0900,1500,2100 [facility] Al Hydroxide/Mg Hydroxide 30 ml 05/29/19 12:01 05/30/19 05:11 Maalox PO 30 ml Q6H PRN Administration Heartburn or Indigestion Calcium Carbonate 500 mg 05/29/19 09:00 05/30/19 09:14 Tums PO 500 mg DAILY MITCH Administration Calcium Carbonate 1,000 mg 05/28/19 21:54 05/28/19 22:06 Tums PO 1,000 mg Q4H PRN Administration Heartburn or Indigestion Cholestyramine Resin 4 gm 05/25/19 22:00 05/30/19 11:44 Questran Light PO 4 gm 1000,2200 MITCH Administration Enoxaparin Sodium 40 mg 05/29/19 09:00 05/30/19 09:15 Lovenox SC 40 mg 0900 MITCH Administration Fentanyl 25 mcg 05/24/19 08:00 05/30/19 09:13 Duragesic TD 25 mcg Q3D MITCH Administration Potassium Chloride 10 meq/ 1,005 mls @ 100 mls/hr 05/30/19 11:30 05/30/19 12: 43 Dextrose/Sodium Chloride IV 1,005 mls .Q10H3M MITCH Administration Lidocaine 1 patch 05/23/19 21:00 05/29/19 20:09 Lidoderm 5% Patch TD 1 patch 2100 MITCH Administration Miscellaneous Medication 1 each 05/24/19 09:00 05/30/19 09:15 Lidocaine Patch Removal TOP Not Given 0900 MITCH Ondansetron HCl 4 mg 05/23/19 14:19 05/30/19 11:44 Zofran IVP 4 mg Q6H PRN Administration Nausea/Vomiting Pantoprazole Sodium 40 mg 05/27/19 09:00 05/30/19 09:18 Protonix PO Not Given BID MITCH Potassium Chloride 40 meq 05/29/19 17:00 05/30/19 09:14 K-Dur PO Not Given BID-WM MITCH Scopolamine 1.5 mg 05/30/19 11:30 05/30/19 12:42 Transderm Scop TD 1.5 mg Q3D MITCH Administration Sumatriptan Succinate 50 mg 05/25/19 20:27 05/27/19 00:54 Imitrex PO 50 mg Q4H PRN Administration Migraine Headache - Exam General Appearance: ill appearing ENT: dry oral mucosa Neck: supple, no JVD Heart: RRR Respiratory: normal chest expansion, no tachypnea Gastrointestinal: soft Neurological: cranial nerve grossly intact, no focal deficits Psychiatric: normal affect, A&O x 3 Hosp A/P (1) GM (acute kidney injury) Code(s): N17.9 - ACUTE KIDNEY FAILURE, UNSPECIFIED Status: Acute (2) High output ileostomy Code(s): R19.8 - OTH SYMPTOMS AND SIGNS INVOLVING THE DGSTV SYS AND ABDOMEN; Z93.2 - ILEOSTOMY STATUS Status: Acute (3) Hypokalemia Code(s): E87.6 - HYPOKALEMIA Status: Acute (4) Small bowel obstruction Code(s): K56.609 - UNSP INTESTNL OBST, UNSP TO PARTIAL VERSUS COMPLETE OBST Status: Resolved - Plan 05/26: No evidence of small bowel obstruction at this time. Acute kidney injury resolved with IV hydration. We are able to maintain her fluid balance with IV fluids to compensate for the high output ileostomy. The patient is tolerating a full liquid diet and her diet will be advanced as tolerated. If the patient is unable to tolerate enough p.o. to compensate for her ileostomy output, we will consult gastroenterology for further input. 05/27: IVF discontinued PO intake encouraged. If BMP WNL tomorrow, patient will probably be ready for DC. 05/28: High output ileostomy with inadequate po intake. Pt is refusing IV access. Protonix and maalox for heartburn. PO intake of fluids was encouraged. Continue cholestiramine. Leukocytosis worsened likely due to hemoconcentration. Repeat labs in AM Consult GI. 05/29: The patient is not taking PO adequately Clinically dry Cr level increased since yesterday Restart IVF Continue management of high output ostomy per GI.
--- NOTE | 2019-05-30 19:21 | PRG ---
DATE OF SERVICE: 05/30/2019 SUBJECTIVE: Ms. Jones vomited last night. She has tolerated clear liquids well today and has mushy and liquidy output from her ostomy. Stool output from the ostomy reported yesterday was 1400 mL. Oral intake reported yesterday was 1500 mL. OBJECTIVE: VITAL SIGNS: Temperature is 97.8, pulse 88, blood pressure 121/70. GENERAL: She is in no acute distress. Awake and alert. LUNGS: Clear to auscultation bilaterally. HEART: Regular rate and rhythm without murmur. ABDOMEN: Soft, nontender, and nondistended. Bowel sounds are present. EXTREMITIES: No lower extremity edema. LABORATORY DATA: White blood cell count 17.2, hemoglobin 12.9, and platelets 274. Creatinine 1.12 and calcium 10.8. IMPRESSION: Chronic high ileostomy output. We will continue to encourage oral intake. If she gets further out from the partial small-bowel obstruction episode, then consider adding a fiber supplement in. She is on scheduled opioid. Loperamide could be used as well in the future. RECOMMENDATIONS: 1. Restart a low-fiber diet as she tolerates. 2. In the future, consider adding a fiber supplement, which might not significantly increase the risk for obstruction related to larger pieces of vegetable fiber, however, still she might have problems with even the fiber supplement. 3. She is on scheduled opioid. Loperamide could be used in the future as well. 4. She is on cholestyramine. 5. Continue supportive care. Job ID: [id number] MTDD
[2019-05-30] MEDS: Lidocaine 5% Patch TD SCH (20:51)
[2019-05-31] MEDS: Potassium Chloride 10 MEQ in Dextrose 5 % And 0.9 % NaCl 1,000 ML IV SCH ×3 (00:10→16:41)
[2019-05-31] MEDS: Acetaminophen 325 MG TAB PO SCH ×4 (04:52→22:56)
[2019-05-31 06:45] LABS: Hemoglobin 11.4 g/dL (12.0-16.0); Mean Corpuscular HGB CONC 32.4 g/dL (32.0-36.0); Mean Corpuscular Hemoglobin 28.8 pg (27.0-31.0); Mean Corpuscular Volume 88.7 fL (78.0-98.0); Mean Platelet Volume 11.3 fL (7.4-10.4); Platelet Count 238 thou/uL (130-400); RBC Distribution Width 16.2 % (11.5-14.5); Red Blood Cell (RBC) Count 3.96 mill/uL (4.20-5.40); White Blood Cell (WBC) Count 14.1 thou/uL (4.8-10.8)
[2019-05-31 06:47] LABS: Anion Gap 12 mmol/L (10-20); BUN (Urea Nitrogen) 14 mg/dL (9.8-20.1); Calc. Creatinine Clearance 47 mL/min (70-130); Carbon Dioxide 23 mmol/L (23-31); Chloride 103 mmol/L (98-107); Estimated GFR-MDRD 53; Glucose 92 mg/dL (83-110); Magnesium 1.8 mg/dL (1.6-2.6); Potassium 4.4 mmol/L (3.5-5.1); Sodium 134 mmol/L (136-145)
[2019-05-31 06:49] LABS: Band 2 % (5-11); Eosinophils 3 % (0-10); Lymphocytes 30 % (21-51); MDiff Complete? YES; Monocytes 3 % (0-10); Myelocyte 1 % (0-0); Neutrophil 61 % (42-75)
[2019-05-31] MEDS: Calcium Carbonate 500 MG ChewTAB PO SCH (07:49)
[2019-05-31] MEDS: Potassium Chloride 20 MEQ TAB PO SCH ×2 (07:50→16:39)
[2019-05-31] MEDS: Enoxaparin Sodium 40 MG/0.4 ML SYRINGE SC SCH (07:50)
[2019-05-31] MEDS: Ondansetron PF 4 MG/2 ML Vial IVP PRN ×3 (07:52→20:19)
--- NOTE | 2019-05-31 07:56 | PRG ---
DATE OF SERVICE: 05/31/2019 SUBJECTIVE: Ms. Jones has had no further vomiting since the night before last. Her input matched her output, however, the volumes were lowered around 800. She did match her intake and output yesterday, but all the I's and O's might not have been completely accurate. We will monitor this closely today. She continues to have output from her ostomy, which is mushy liquidy stool. OBJECTIVE: VITAL SIGNS: Temperature is 97.4, pulse 78, and blood pressure 121/ 68. GENERAL: She is in no acute distress. Alert and awake. LUNGS: Clear to auscultation bilaterally. HEART: Regular rate and rhythm without murmur. ABDOMEN: Soft, nontender, and nondistended. Bowel sounds are present. EXTREMITIES: No lower extremity edema. LABORATORY DATA: Her hemoglobin is 11.4. Her white count is 14.1. Creatinine 1.0. IMPRESSION: 1. Small bowel obstruction appears to be clinically resolved at this point. She only took in clear liquids yesterday, and we will encourage her to take a low- fiber diet today. 2. High ileostomy output. Her output has not been tremendously high over the last few days. We will continue to monitor her output and encourage a low-fiber, low osmotic diet for now. Eventually in the future, we might try to add in a fiber supplement. However, this will have to be balanced with her recent small bowel obstruction. For now, I would avoid it. She needs to be taking adequate caloric intake in before adding any type of fiber supplement as well. Job ID: [id number] MTDD
[2019-05-31] MEDS: Lidocaine Patch Removal 1 EACH TOP SCH (07:58)
[2019-05-31] MEDS: Cholestyramine/Aspartame 4 gm Packet PO SCH ×2 (09:16→22:56)
--- NOTE | 2019-05-31 15:45 | PDOC.HOSPP ---
- Subjective Encounter Date: 05/31/19 Subjective: Nausea improved tolerating PO intake - Objective Vital Signs & Weight: Vital Signs (12 hours) Temp Pulse Resp BP Pulse Ox 05/31/19 11:36 98.3 F 62 18 111/51 L 95 05/31/19 08:52 97.8 F 89 18 117/74 100 05/31/19 08:00 100 Weight Admit Weight 148 lb Weight 145 lb 1.6 oz I&O: 05/30/19 05/31/19 06/01/19 06:59 06:59 06:59 Intake Total 1500 1960 600 Output Total 1400 800 Balance 100 1160 600 Result Diagrams: 05/31/19 06:00 05/31/19 06:00 Hospitalist ROS - Medication Medications: Active Medications Generic Name Dose Route Start Last Admin Trade Name Freq PRN Reason Stop Dose Admin Acetaminophen 650 mg 05/25/19 21:00 05/31/19 14:51 Tylenol PO 650 mg 0300,0900,1500,2100 MITCH Administration Al Hydroxide/Mg Hydroxide 30 ml 05/29/19 12:01 05/30/19 05:11 Maalox PO 30 ml Q6H PRN Administration Heartburn or Indigestion Calcium Carbonate 500 mg 05/29/19 09:00 05/31/19 07:49 Tums PO 500 mg DAILY MITCH Administration Calcium Carbonate 1,000 mg 05/28/19 21:54 05/28/19 22:06 Tums PO 1,000 mg Q4H PRN Administration Heartburn or Indigestion Cholestyramine Resin 4 gm 05/25/19 22:00 05/31/19 09:16 Questran Light PO 4 gm 1000,2200 MITCH Administration Enoxaparin Sodium 40 mg 05/29/19 09:00 05/31/19 07:50 Lovenox SC 40 mg 0900 MITCH Administration Fentanyl 25 mcg 05/24/19 08:00 05/30/19 09:13 Duragesic TD 25 mcg Q3D MITCH Administration Potassium Chloride 10 meq/ 1,005 mls @ 100 mls/hr 05/30/19 11:30 05/31/19 09: 15 Dextrose/Sodium Chloride IV 1,005 mls .Q10H3M MITCH Administration Lidocaine 1 patch 05/23/19 21:00 05/30/19 20:51 Lidoderm 5% Patch TD 1 patch 2100 MITCH Administration Miscellaneous Medication 1 each 05/24/19 09:00 05/31/19 07:58 Lidocaine Patch Removal TOP Not Given 09 MITCH Ondansetron HCl 4 mg 05/23/19 14:19 05/31/19 14:06 Zofran IVP 4 mg Q6H PRN Administration Nausea/Vomiting Pantoprazole Sodium 40 mg 05/27/19 09:00 05/31/19 07:50 Protonix PO 40 mg BID MITCH Administration Potassium Chloride 40 meq 05/29/19 17:00 05/31/19 07:50 K-Dur PO 40 meq BID-WM MITCH Administration Scopolamine 1.5 mg 05/30/19 11:30 05/30/19 12:42 Transderm Scop TD 1.5 mg Q3D MITCH Administration Sumatriptan Succinate 50 mg 05/25/19 20:27 05/27/19 00:54 Imitrex PO 50 mg Q4H PRN Administration Migraine Headache - Exam General Appearance: NAD ENT: normocephalic atraumatic Neck: supple, no JVD Heart: RRR Respiratory: CTAB Gastrointestinal: soft, non-tender, non-distended Hosp A/P (1) GM (acute kidney injury) Code(s): N17.9 - ACUTE KIDNEY FAILURE, UNSPECIFIED Status: Acute (2) High output ileostomy Code(s): R19.8 - OTH SYMPTOMS AND SIGNS INVOLVING THE DGSTV SYS AND ABDOMEN; Z93.2 - ILEOSTOMY STATUS Status: Acute (3) Hypokalemia Code(s): E87.6 - HYPOKALEMIA Status: Acute (4) Small bowel obstruction Code(s): K56.609 - UNSP INTESTNL OBST, UNSP TO PARTIAL VERSUS COMPLETE OBST Status: Resolved - Plan 05/26: No evidence of small bowel obstruction at this time. Acute kidney injury resolved with IV hydration. We are able to maintain her fluid balance with IV fluids to compensate for the high output ileostomy. The patient is tolerating a full liquid diet and her diet will be advanced as tolerated. If the patient is unable to tolerate enough p.o. to compensate for her ileostomy output, we will consult gastroenterology for further input. 05/27: IVF discontinued PO intake encouraged. If BMP WNL tomorrow, patient will probably be ready for DC. 05/28: High output ileostomy with inadequate po intake. Pt is refusing IV access. Protonix and maalox for heartburn. PO intake of fluids was encouraged. Continue cholestiramine. Leukocytosis worsened likely due to hemoconcentration. Repeat labs in AM Consult GI. 05/29: The patient is not taking PO adequately Clinically dry Cr level increased since yesterday Restart IVF Continue management of high output ostomy per GI. 05/30: Output from ileostomy decreasing Less heartburn and nausea after scopolamine and maalox yesterday BMP improved.
[2019-05-31] MEDS: Lidocaine 5% Patch TD SCH (22:56)
[2019-06-01] MEDS: SUMAtriptan Succinate 50 MG TAB PO PRN (01:14)
[2019-06-01] MEDS: Acetaminophen 325 MG TAB PO SCH ×4 (04:47→20:30)
[2019-06-01 07:21] LABS: Anion Gap 16 mmol/L (10-20); BUN (Urea Nitrogen) 12 mg/dL (9.8-20.1); Calc. Creatinine Clearance 58 mL/min (70-130); Calcium 9.3 mg/dL (7.8-10.44); Carbon Dioxide 19 mmol/L (23-31); Chloride 107 mmol/L (98-107); Estimated GFR-MDRD 67; Glucose 79 mg/dL (83-110); Potassium 4.1 mmol/L (3.5-5.1); Sodium 138 mmol/L (136-145)
[2019-06-01 07:55] LABS: Crenated RBC SLIGHT = 1-5 cells (100X) (None Seen); Eosinophils 2 % (0-10); Hemoglobin 10.8 g/dL (12.0-16.0); Lymphocytes 38 % (21-51); MDiff Complete? YES; Mean Corpuscular HGB CONC 32.3 g/dL (32.0-36.0); Mean Corpuscular Volume 89.8 fL (78.0-98.0); Mean Platelet Volume 10.9 fL (7.4-10.4); Monocytes 6 % (0-10); Neutrophil 54 % (42-75); Platelet Count 247 thou/uL (130-400); Poikilocytosis SLIGHT = 6-15 cells (100X) (0-5/hpf); Red Blood Cell (RBC) Count 3.72 mill/uL (4.20-5.40); Target Cells SLIGHT = 2-5 cells (100X) (0-1/hpf); White Blood Cell (WBC) Count 12.6 thou/uL (4.8-10.8)
[2019-06-01] MEDS: Potassium Chloride 20 MEQ TAB PO SCH (09:03)
[2019-06-01] MEDS: Enoxaparin Sodium 40 MG/0.4 ML SYRINGE SC SCH (09:03)
[2019-06-01] MEDS: Calcium Carbonate 500 MG ChewTAB PO SCH (09:03)
[2019-06-01] MEDS: Lidocaine Patch Removal 1 EACH TOP SCH (09:04)
--- NOTE | 2019-06-01 10:05 | PRG ---
DATE OF SERVICE: 06/01/2019 I have seen Robert on rounds each of the past two days, May 29 and May 30. One of this with her yesterday evening. She had no vomiting for the previous 24 hours and was eating a regular diet and clearly looked and felt much better. Her ostomy was working well and her abdomen was benign. I had encouraged her to maintain oral intake in order to avoid dehydration, malnutrition associated with her ileostomy. She may be treated with whatever medications necessary to controller her ostomy output. If she develops recurrent obstructive symptoms, then she will at some point require surgery to address the obstruction. She remains stable from a surgical standpoint. Job ID: [id number]
[2019-06-01] MEDS: Cholestyramine/Aspartame 4 gm Packet PO SCH ×2 (10:59→20:31)
[2019-06-01] MEDS ORDERED: Potassium Chloride 20 MEQ TAB PO SCH (14:15)
--- NOTE | 2019-06-01 14:22 | PDOC.HOSPP ---
- Subjective Encounter Date: 06/01/19 Subjective: No new complaints - Objective Vital Signs & Weight: Vital Signs (12 hours) Temp Pulse Resp BP Pulse Ox 06/01/19 08:00 97.6 F 72 20 130/72 100 Weight Admit Weight 148 lb Weight 145 lb 1.6 oz I&O: 05/31/19 06/01/19 06/02/19 06:59 06:59 06:59 Intake Total 1960 1360 Output Total 800 1050 Balance 1160 310 Result Diagrams: 06/01/19 06:36 06/01/19 06:36 Hospitalist ROS - Medication Medications: Active Medications Generic Name Dose Route Start Last Admin Trade Name Freq PRN Reason Stop Dose Admin Acetaminophen 650 mg 05/25/19 21:00 06/01/19 09:02 Tylenol PO 650 mg 0300,0900,1500,2100 MITCH Administration Al Hydroxide/Mg Hydroxide 30 ml 05/29/19 12:01 05/30/19 05:11 Maalox PO 30 ml Q6H PRN Administration Heartburn or Indigestion Calcium Carbonate 500 mg 05/29/19 09:00 06/01/19 09:03 Tums PO 500 mg DAILY MITCH Administration Calcium Carbonate 1,000 mg 05/28/19 21:54 05/28/19 22:06 Tums PO 1,000 mg Q4H PRN Administration Heartburn or Indigestion Cholestyramine Resin 4 gm 05/25/19 22:00 06/01/19 10:59 Questran Light PO 4 gm 1000,2200 MITCH Administration Enoxaparin Sodium 40 mg 05/29/19 09:00 06/01/19 09:03 Lovenox SC 40 mg 0900 MITCH Administration Fentanyl 25 mcg 05/24/19 08:00 05/30/19 09:13 Duragesic TD 25 mcg Q3D MITCH Administration Lidocaine 1 patch 05/23/19 21:00 05/31/19 22:56 Lidoderm 5% Patch TD 1 patch 2100 MITCH Administration Miscellaneous Medication 1 each 05/24/19 09:00 06/01/19 09:04 Lidocaine Patch Removal TOP Not Given 0900 MITCH Ondansetron HCl 4 mg 05/23/19 14:19 05/31/19 20:19 Zofran IVP 4 mg Q6H PRN Administration Nausea/Vomiting Pantoprazole Sodium 40 mg 05/27/19 09:00 06/01/19 09:03 Protonix PO 40 mg BID MITCH Administration Scopolamine 1.5 mg 05/30/19 11:30 05/30/19 12:42 Transderm Scop TD 1.5 mg Q3D MITCH Administration Sumatriptan Succinate 50 mg 05/25/19 20:27 06/01/19 01:14 Imitrex PO 50 mg Q4H PRN Administration Migraine Headache - Exam General Appearance: NAD ENT: normocephalic atraumatic Neck: supple, no JVD Heart: RRR, no murmur, no gallops, no rubs, normal peripheral pulses Respiratory: CTAB, no wheezes, no rales, no ronchi, normal chest expansion Gastrointestinal: soft, non-tender, non-distended, normal bowel sounds Hosp A/P (1) GM (acute kidney injury) Code(s): N17.9 - ACUTE KIDNEY FAILURE, UNSPECIFIED Status: Acute (2) High output ileostomy Code(s): R19.8 - OTH SYMPTOMS AND SIGNS INVOLVING THE DGSTV SYS AND ABDOMEN; Z93.2 - ILEOSTOMY STATUS Status: Acute (3) Hypokalemia Code(s): E87.6 - HYPOKALEMIA Status: Acute (4) Small bowel obstruction Code(s): K56.609 - UNSP INTESTNL OBST, UNSP TO PARTIAL VERSUS COMPLETE OBST Status: Resolved - Plan 05/26: No evidence of small bowel obstruction at this time. Acute kidney injury resolved with IV hydration. We are able to maintain her fluid balance with IV fluids to compensate for the high output ileostomy. The patient is tolerating a full liquid diet and her diet will be advanced as tolerated. If the patient is unable to tolerate enough p.o. to compensate for her ileostomy output, we will consult gastroenterology for further input. 05/27: IVF discontinued PO intake encouraged. If BMP WNL tomorrow, patient will probably be ready for DC. 05/28: High output ileostomy with inadequate po intake. Pt is refusing IV access. Protonix and maalox for heartburn. PO intake of fluids was encouraged. Continue cholestiramine. Leukocytosis worsened likely due to hemoconcentration. Repeat labs in AM Consult GI. 05/29: The patient is not taking PO adequately Clinically dry Cr level increased since yesterday Restart IVF Continue management of high output ostomy per GI. 05/30: Output from ileostomy decreasing Less heartburn and nausea after scopolamine and maalox yesterday BMP improved. 05/31: 1L ileostomy output. BMP unremarkable Continue K and Mag replacement and check levels in the morning.
[2019-06-01] MEDS ORDERED: Magnesium Oxide 400 MG TAB PO SCH (14:30)
--- NOTE | 2019-06-01 15:28 | PRG ---
DATE OF SERVICE: 06/01/2019 SUBJECTIVE: Ms. Jones is feeling well. She has no abdominal pain, nausea, or vomiting. She has been tolerating her diet. Ileostomy output is semiliquid/semisolid nonbloody, only 1050 mL of ileostomy output recorded over the past 24 hours, so I's and O's have been on the positive side for the past 3 days at least. OBJECTIVE: VITAL SIGNS: Temperature 97.6, pulse 72, blood pressure 130/72, and 100% oxygen saturation on room air. GENERAL: No acute distress. HEART: Regular rate and rhythm. LUNGS: Clear to auscultation bilaterally. ABDOMEN: Bowel sounds present. Soft and nontender to palpation throughout. Ileostomy bag in the right lower quadrant with some brown semisolid stool in the bag. LABORATORY STUDIES: WBC 12.6, hemoglobin 10.8, and platelets 247. Sodium 138, potassium 4.1, BUN 12, creatinine 0.82, and glucose 79. ASSESSMENT AND PLAN: High-output ileostomy. Output has really been well controlled. It appears over the past 3 days at least. As per Dr. Rahman's recommendation, continue to encourage the low osmotic diet. Agree with low-fiber as well. Given the recent small bowel obstruction, though this could be added in later if she continues to do well. She seems to have benefitted from cholestyramine 4 mg by mouth twice daily as well as scopolamine patch, and the fentanyl patch, it is likely also helping with slowing down bowel motility. No new recommendations from a Gastroenterology standpoint. I think the patient could potentially be discharged from the hospital. Please call back anytime with questions or concerns. Job ID: [id number]
[2019-06-01] MEDS: Ondansetron PF 4 MG/2 ML Vial IVP PRN (17:51)
[2019-06-01] MEDS: Lidocaine 5% Patch TD SCH (20:29)
[2019-06-01] MEDS: Temazepam 15 MG CAP PO SCH (20:31)
[2019-06-02] MEDS: Acetaminophen 325 MG TAB PO SCH ×4 (04:25→20:13)
[2019-06-02 06:25] LABS: Anion Gap 15 mmol/L (10-20); BUN (Urea Nitrogen) 11 mg/dL (9.8-20.1); Calc. Creatinine Clearance 53 mL/min (70-130); Carbon Dioxide 24 mmol/L (23-31); Chloride 104 mmol/L (98-107); Estimated GFR-MDRD 60; Glucose 80 mg/dL (83-110); Potassium 4.3 mmol/L (3.5-5.1); Sodium 139 mmol/L (136-145)
[2019-06-02 08:07] LABS: #Basophils 0.1 thou/uL (0.0-0.2); #Eosinphils 0.2 thou/uL (0.0-0.7); #Lymphocytes 3.4 thou/uL (1.20-3.40); #Monocytes 1.4 thou/uL (0.11-0.59); #Neutrophils 12.1 thou/uL (1.40-6.50); %Basophils 0.5 % (0.0-1.0); %Eosinophils 1.3 % (0.0-10.0); %Lymphocytes 19.8 % (21.0-51.0); %Monocytes 8.3 % (0.0-10.0); %Neutrophils 70.1 % (42.0-75.0); Hemoglobin 11.8 g/dL (12.0-16.0); Large Platelets SLIGHT; MDiff Complete? YES; Mean Corpuscular HGB CONC 32.1 g/dL (32.0-36.0); Mean Corpuscular Hemoglobin 28.6 pg (27.0-31.0); Mean Corpuscular Volume 89.2 fL (78.0-98.0); Mean Platelet Volume 11.3 fL (7.4-10.4); Platelet Count 239 thou/uL (130-400); RBC Distribution Width 16.4 % (11.5-14.5); Red Blood Cell (RBC) Count 4.11 mill/uL (4.20-5.40); White Blood Cell (WBC) Count 17.3 thou/uL (4.8-10.8)
[2019-06-02] MEDS: Calcium Carbonate 500 MG ChewTAB PO SCH (08:59)
[2019-06-02] MEDS: Lidocaine Patch Removal 1 EACH TOP SCH (09:00)
[2019-06-02] MEDS: Potassium Chloride 20 MEQ TAB PO SCH (09:01)
[2019-06-02] MEDS: Cholestyramine/Aspartame 4 gm Packet PO SCH ×2 (09:05→23:10)
[2019-06-02] MEDS: Enoxaparin Sodium 40 MG/0.4 ML SYRINGE SC SCH (09:05)
[2019-06-02] MEDS: Mag-Al 1200 mg/1200 mg/30 ML UDCUP PO PRN (09:12)
--- NOTE | 2019-06-02 10:30 | PRG ---
DATE OF SERVICE: 06/02/2019 SUBJECTIVE: Ms. Jones is resting comfortably in her bed. She tells me she rested well last night. She believes she is eating better. She has had a little acid indigestion, but no nausea or vomiting. She tells me ostomy function has been good. She is voiding occasionally and participating with physical therapy. OBJECTIVE: VITAL SIGNS: She is afebrile. Her pulse this morning is a little elevated at 108, blood pressure 147/76. LUNGS: Clear to auscultation. ABDOMEN: Soft. Bowel sounds are present and essentially normoactive. She has appropriate ostomy output. LABORATORY DATA: Her white blood cell count has gone back up from 12 yesterday to 17 today, hemoglobin is relatively stable at 11.8. Her chemistry profile reveals normal electrolytes. Her creatinine is 0.9, up from 0.8 yesterday. ASSESSMENT AND PLAN: The patient remains stable from a surgical standpoint. Unless she has evidence of recurrent bowel obstruction, there is no indication for surgical involvement. If she has another episode of documented bowel obstruction, I would recommend that she have laparotomy to address this. I do not believe she would fare well if her ostomy was reversed and she was reanastomosed. I think that she would have bad problems with diarrhea per rectum. I will continue to follow her as long she is here in the hospital but for now, she appears to be stable. Job ID: [id number]
[2019-06-02] MEDS: Scopolamine 1.5 mg/72 hour Patch TD SCH (11:29)
[2019-06-02] MEDS: Ondansetron PF 4 MG/2 ML Vial IVP PRN ×2 (12:12→20:12)
--- NOTE | 2019-06-02 15:51 | PDOC.HOSPP ---
- Subjective Encounter Date: 06/02/19 Subjective: Stable - Objective Vital Signs & Weight: Vital Signs (12 hours) Temp Pulse Resp BP Pulse Ox 06/02/19 12:10 98.3 F 88 20 109/67 99 06/02/19 08:12 99.4 F 108 H 20 147/76 H 97 Weight Admit Weight 148 lb Weight 145 lb 1.6 oz I&O: 06/01/19 06/02/19 06/03/19 06:59 06:59 06:59 Intake Total 1360 1200 720 Output Total 1050 420 Balance 310 780 720 Result Diagrams: 06/02/19 05:49 06/02/19 05:49 Hospitalist ROS - Medication Medications: Active Medications Generic Name Dose Route Start Last Admin Trade Name Freq PRN Reason Stop Dose Admin Acetaminophen 650 mg 05/25/19 21:00 06/02/19 15:38 Tylenol PO 650 mg 0300,0900,1500,2100 MITCH Administration Al Hydroxide/Mg Hydroxide 30 ml 05/29/19 12:01 06/02/19 09:12 Maalox PO 30 ml Q6H PRN Administration Heartburn or Indigestion Calcium Carbonate 500 mg 05/29/19 09:00 06/02/19 08:59 Tums PO 500 mg DAILY MITCH Administration Calcium Carbonate 1,000 mg 05/28/19 21:54 05/28/19 22:06 Tums PO 1,000 mg Q4H PRN Administration Heartburn or Indigestion Cholestyramine Resin 4 gm 05/25/19 22:00 06/02/19 09:05 Questran Light PO 4 gm 1000,2200 MITCH Administration Enoxaparin Sodium 40 mg 05/29/19 09:00 06/02/19 09:05 Lovenox SC 40 mg 0900 MITCH Administration Fentanyl 25 mcg 05/24/19 08:00 06/02/19 08:56 Duragesic TD 25 mcg Q3D MITCH Administration Lidocaine 1 patch 05/23/19 21:00 06/01/19 20:29 Lidoderm 5% Patch TD 1 patch 2100 MITCH Administration Miscellaneous Medication 1 each 05/24/19 09:00 06/02/19 09:00 Lidocaine Patch Removal TOP 1 each 0900 MITCH Administration Ondansetron HCl 4 mg 05/23/19 14:19 06/02/19 12:12 Zofran IVP 4 mg Q6H PRN Administration Nausea/Vomiting Pantoprazole Sodium 40 mg 05/27/19 09:00 06/02/19 08:59 Protonix PO 40 mg BID MITCH Administration Potassium Chloride 40 meq 06/02/19 09:00 06/02/19 09:01 K-Dur PO 40 meq DAILY MITCH Administration Scopolamine 1.5 mg 05/30/19 11:30 06/02/19 11:29 Transderm Scop TD 1.5 mg Q3D MITCH Administration Sumatriptan Succinate 50 mg 05/25/19 20:27 06/01/19 01:14 Imitrex PO 50 mg Q4H PRN Administration Migraine Headache Temazepam 30 mg 06/01/19 21:00 06/01/19 20:31 Restoril PO 30 mg HS MITCH Administration - Exam General Appearance: NAD, awake alert ENT: normocephalic atraumatic Neck: supple, symmetric, no JVD, no thyromegaly Heart: RRR, no murmur, no gallops, no rubs, normal peripheral pulses Respiratory: CTAB, no wheezes, no rales, no ronchi, normal chest expansion Gastrointestinal: soft, non-tender, non-distended, normal bowel sounds Hosp A/P (1) GM (acute kidney injury) Code(s): N17.9 - ACUTE KIDNEY FAILURE, UNSPECIFIED Status: Acute (2) High output ileostomy Code(s): R19.8 - OTH SYMPTOMS AND SIGNS INVOLVING THE DGSTV SYS AND ABDOMEN; Z93.2 - ILEOSTOMY STATUS Status: Acute (3) Hypokalemia Code(s): E87.6 - HYPOKALEMIA Status: Acute (4) Small bowel obstruction Code(s): K56.609 - UNSP INTESTNL OBST, UNSP TO PARTIAL VERSUS COMPLETE OBST Status: Resolved - Plan 05/26: No evidence of small bowel obstruction at this time. Acute kidney injury resolved with IV hydration. We are able to maintain her fluid balance with IV fluids to compensate for the high output ileostomy. The patient is tolerating a full liquid diet and her diet will be advanced as tolerated. If the patient is unable to tolerate enough p.o. to compensate for her ileostomy output, we will consult gastroenterology for further input. 05/27: IVF discontinued PO intake encouraged. If BMP WNL tomorrow, patient will probably be ready for DC. 05/28: High output ileostomy with inadequate po intake. Pt is refusing IV access. Protonix and maalox for heartburn. PO intake of fluids was encouraged. Continue cholestiramine. Leukocytosis worsened likely due to hemoconcentration. Repeat labs in AM Consult GI. 05/29: The patient is not taking PO adequately Clinically dry Cr level increased since yesterday Restart IVF Continue management of high output ostomy per GI. 05/30: Output from ileostomy decreasing Less heartburn and nausea after scopolamine and maalox yesterday BMP improved. 05/31: 1L ileostomy output. BMP unremarkable Continue K and Mag replacement and check levels in the morning. 06/01: Output is manageable. PO intake encouraged. Electrolytes stable. DC home tomorrow.
[2019-06-02] MEDS: Temazepam 15 MG CAP PO SCH (20:13)
[2019-06-02] MEDS: Lidocaine 5% Patch TD SCH (20:13)
[2019-06-03] MEDS: Acetaminophen 325 MG TAB PO SCH ×2 (03:27→08:05)
[2019-06-03 06:29] LABS: Mean Corpuscular HGB CONC 32.9 g/dL (32.0-36.0); Mean Corpuscular Hemoglobin 29.2 pg (27.0-31.0); Mean Corpuscular Volume 88.6 fL (78.0-98.0); Mean Platelet Volume 11.2 fL (7.4-10.4); Platelet Count 260 thou/uL (130-400); RBC Distribution Width 16.4 % (11.5-14.5); Red Blood Cell (RBC) Count 3.76 mill/uL (4.20-5.40); White Blood Cell (WBC) Count 22.3 thou/uL (4.8-10.8)
[2019-06-03 07:27] LABS: Anion Gap 13 mmol/L (10-20); BUN (Urea Nitrogen) 13 mg/dL (9.8-20.1); Calc. Creatinine Clearance 43 mL/min (70-130); Calcium 9.6 mg/dL (7.8-10.44); Carbon Dioxide 26 mmol/L (23-31); Chloride 99 mmol/L (98-107); Estimated GFR-MDRD 48; Glucose 78 mg/dL (83-110); Magnesium 1.4 mg/dL (1.6-2.6); Potassium 4.3 mmol/L (3.5-5.1); Sodium 134 mmol/L (136-145)
[2019-06-03 08:02] VITALS: BP 125/73; TEMP 97.5
[2019-06-03] MEDS: Enoxaparin Sodium 40 MG/0.4 ML SYRINGE SC SCH (08:05)
[2019-06-03] MEDS: Calcium Carbonate 500 MG ChewTAB PO SCH (08:05)
[2019-06-03] MEDS: Potassium Chloride 20 MEQ TAB PO SCH (08:05)
[2019-06-03 08:19] LABS: Eosinophils 1 % (0-10); Lymphocytes 18 % (21-51); MDiff Complete? YES; Monocytes 11 % (0-10); Neutrophil 70 % (42-75); Platelet Morphology Comment Appears Adequate; Polychromasia SLIGHT = 2-3 cells (100X) (0-2/hpf)
[2019-06-03] MEDS: Ondansetron PF 4 MG/2 ML Vial IVP PRN (08:39)
[2019-06-03] MEDS: Lidocaine Patch Removal 1 EACH TOP SCH (08:41)
[2019-06-03] MEDS ORDERED: Magnesium Oxide 400 MG TAB PO SCH (09:00)
[2019-06-03] MEDS: Cholestyramine/Aspartame 4 gm Packet PO SCH (10:32)
--- NOTE | 2019-06-03 15:40 | DIS ---
DATE OF ADMISSION: 05/23/2019 DATE OF DISCHARGE: 06/03/2019 DISCHARGE DIAGNOSES: 1. Small bowel obstruction. 2. Acute kidney injury. 3. High output ileostomy. 4. Hypokalemia. 5. Hypomagnesemia. DISCHARGE MEDICATIONS: 1. Levofloxacin 500 mg orally daily for 5 days. 2. Metronidazole 500 mg orally three times a day for 5 days. 3. Calcium carbonate two tablets orally daily. 4. Lidocaine patch one patch daily. 5. Lidocaine patch removal daily. 6. Sumatriptan 50 mg orally q.4 hours as needed for migraine. 7. Temazepam 30 mg orally at bedtime. 8. Tylenol 650 mg q.6 hours as needed for headache. 9. Maalox 10 mL p.o. after meals at bedtime as needed for heartburn. 10. Vitamin C 1000 mg orally daily. 11. Atorvastatin 10 mg at bedtime. 12. Vitamin D3 of 1000 units p.o. daily. 13. Cholestyramine 4 g orally twice daily. 14. Cymbalta 90 mg orally daily. 15. Korin 1 tablet orally twice daily as needed for allergies. 16. Folic acid 0.8 mg orally daily. 17. Mucinex 1200 mg orally twice daily. 18. Lisinopril 20 mg orally daily. 19. Magnesium oxide 400 mg orally daily. 20. Metoprolol tartrate 12.5 mg orally twice daily. 21. Zofran 4 mg sublingual q.6 hours as needed for nausea and vomiting. 22. Pantoprazole 40 mg orally twice daily. 23. Potassium chloride 20 mEq orally daily. 24. Pregabalin 75 mg orally three times a day. 25. Scopolamine patch 1.5 mg transdermal q.3 days as needed for nausea. HISTORY OF PRESENT ILLNESS AND HOSPITAL COURSE: The patient is a 78-year-old female with past medical history of hyperlipidemia, hypertension, COPD, ITP status post splenectomy, uterine cancer status post hysterectomy, depression, subarachnoid hemorrhage, and ischemic bowel status post colon resection in February. The patient had an ileostomy at that time and had some complications with high output since then and also had a couple of recurrent spells, that resolve spontaneously. She was admitted to the hospital with abdominal pain and distention. CT scan suggests a small bowel obstruction. She had an NG tube placed and managed conservatively and bowel obstruction resolved spontaneously. Since then, the patient has been experiencing high output in her ileostomy. GI were consulted and the patient was placed on cholestyramine. She received IV fluids and her electrolytes were replaced as needed. The patient is up with gradually decreased and became manageable over the last 3 days of hospital stay. The patient's IV fluids were discontinued and she was able to tolerate enough oral intake, sustain her volume status and electrolytes. The patient also had a slightly elevated WBC count, which fluctuated along with her volume status and no source of infection was identified. The patient was placed on a short course of antibiotics for possible enteritis. Her white count is slightly reactive. We recommend outpatient followup with PCP in 1 week and Gastroenterology in 1 to 2 weeks. Job ID: [id number]
--- NOTE | 2019-06-05 23:41 | PQF ---
MINISTERIO CHUNG MOEZ [id number] CLINICAL DOCUMENTATION CLARIFICATION FORM: POST DISCHARGE Addendum to original discharge summary date: ____ Late entry note date: __ Date: 06/05/2019 ATTN: CHAVA MITCHELL Please exercise your independent, professional judgment in responding to the clarification form. Clinical indicators are provided on the bottom of this form for your review Please check appropriate box(s): [ ] Protein Calorie Malnutrition: [ ] Mild [ ] Moderate [ ] Severe [ ] Other Malnutrition (please specify) __ [ >] Underweight without malnutrition [ ] Cachexia [ ] Other diagnosis [ ] Unable to determine In addition, please specify: Present on Admission (POA): [ > ] Yes [ ] No [ ] Unable to determine CLINICAL INDICATORS - SIGNS / SYMPTOMS / LABS The patine will be admitted to med/surg floor for small-bowel obstruction with moderate to severe dehydration-Documented in H&P on 05/22 by Karly Hartley MD Nausea and vomiting -Documented in progress note on 05/25 Jairo Gallegos MD High output ileostomy with inadequate po intake -Hospitalist progress note on by Chava Mitchell MD The patient is not tacking PO adequately-Hospitalist progress note on 06/01 by Chava Mitchell MD BMI-27.2-Documented in FNS assessment High output ileostomy with inadequate po intake -Hospitalist progress note on by Chava Mitchell MD 4% weight loss over 1 month with RN trigger for decreased PO intake -Documented in FNS assessment RISK FACTORS The patine will be admitted to med/surg floor for small-bowel obstruction with moderate to severe dehydration-Documented in H&P on 05/22 by Karly Hartley MD Nausea and vomiting -Documented in progress note on 05/25 Jaior Gallegos MD TREATMENT: Plan will to be to continue to advance diet as tolerated-Documented in progress note on 05/25 by Donis Mack PA-C PO intake encouraged-Hospitalist progress note on 06/01 by Chava Mitchell MD PO intake of fluids was encouraged-Hospitalist progress note on 06/01 by Chava Mitchell MD Estimated needs to be closely met with PO intake-Documented in FNS assessment Moderate Malnutrition (in acute illness) Energy Intake: <75% of estimated energy requirement for > 7 days Weight Loss: 1-2%/1 week; 5%/ 1 month; 7.5%/3 months Other: mild body fat loss; mild muscle mass loss; mild fluid accumulation; Severe Malnutrition (in acute illness) Energy Intake: < 50% of estimated energy requirement for > 5 days Weight Loss: >1-2%/1 week; >5%/1 month; >7.5%/3 months Other: moderate body fat loss; moderate muscle mass loss; moderate- severe fluid accumulation; measurably reduced film reader strength Moderate Malnutrition (in chronic illness) Energy Intake: <75% of estimated energy requirement for >1 month Weight Loss: 5%/1 month; 7.5%/3 months; 10%/6 months; 20%/1 year Other: mild body fat loss; mild muscle mass loss; mild fluid accumulation Severe Malnutrition (in chronic illness) Energy Intake: <75% of estimated energy requirement for >1 month Weight Loss: >5%/1 month; >7.5%/3 months; >10%/6 months; >20%/1 year Other: severe body fat loss; severe muscle mass loss; severe fluid accumulation ; measurably reduced film reader strength [employer]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 All Rights Reserved [email or web address] [phone] MARIA DE [email or web address]
--- NOTE | 2019-06-06 00:03 | PQF ---
MINISTERIO CHUNG MOEZ [id number] CLINICAL DOCUMENTATION CLARIFICATION FORM: POST DISCHARGE Addendum to original discharge summary date: ____ Late entry note date: __ DATE:06/05/2019 ATTN: ROBINA MITCHELL Please exercise your independent, professional judgment in responding to the clarification form. Clinical indicators are provided on the bottom of this form for your review Please check appropriate box(s): [ > ] Small bowel obstruction due to Ileostomy complication [ ] Small bowel obstruction due to postoperative colectomy complication [ ] Other diagnosis [ > ] Unable to determine CLINICAL INDICATORS - SIGNS / SYMPTOMS / LABS History of subtotal colectomy after ischemia bowel -Documented in H&P on 05/22 by Karly Hartley Small bowel obstruction-Documented in H&P on 05/22 by Karly Hartley She currently has an NG tube and is on intermittent suction with aspiration of gastric contents-Documented in H&P on 05/22 by Karly Hartley Ileostomy-Documented in H&P on 05/22 by Karly Hartley The patient had an ileostomy at that time and had some complication with ramirez output since then and also had a couple of recurrent spells , that resolve spontaneously-Documented in discharge summary on 06/02 by Robina Mitchell MD CT scan suggests a small bowel obstruction . She had an NG tube placed and managed conservatively and bowel obstruction resolved spontaneously. 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 All Rights Reserved [email or web address]
--- NOTE | 2019-06-13 15:18 | EKG ---
Test Reason : Blood Pressure : / mmHG Vent. Rate : 142 BPM Atrial Rate : 142 BPM P-R Int : 126 ms QRS Dur : 070 ms QT Int : 348 ms P-R-T Axes : 083 082 078 degrees QTc Int : 535 ms Sinus tachycardia Biatrial enlargement Septal infarct (cited on or before 23-MAY-2019) Abnormal ECG When compared with ECG of 23-MAY-2019 09:17, Sinus rhythm is no longer with junctional escape complexes ST now depressed in Anterior leads T wave inversion now evident in Lateral leads Confirmed by DR. Julieta LAY ([id number]) on 06/13/2019 3:18:34 PM Referred By: JANELLE Confirmed By:DR. Julieta LAY
== END 2019-06-03 11:12 | disposition home or self-care (01) | DRG 389 ==
LOC: ERS 08:36 → T4-B 12:31 → 2NO 05-25 02:32 → T4-A 05-30 15:18
PROVIDERS: ADMIT Internal Medicine; ATTEND Internal Medicine
PROC: 0D9670Z Drainage of Stomach with Drainage Device, Via Natural or Artificial Opening (ICD-10-PCS; principal; 2019-05-23)
DX: K56.600 Partial intestinal obstruction, unspecified as to cause (principal); N17.9 Acute kidney failure, unspecified; E87.0 Hyperosmolality and hypernatremia; E87.6 Hypokalemia; E83.42 Hypomagnesemia; Z93.2 Ileostomy status; E78.5 Hyperlipidemia, unspecified; I10 Essential (primary) hypertension; J44.9 Chronic obstructive pulmonary disease, unspecified; Z90.81 Acquired absence of spleen; Z90.49 Acquired absence of other specified parts of digestive tract; Z90.710 Acquired absence of both cervix and uterus; F32.9 Major depressive disorder, single episode, unspecified; D69.6 Thrombocytopenia, unspecified; G43.909 Migraine, unspecified, not intractable, without status migrainosus; F41.9 Anxiety disorder, unspecified; G89.4 Chronic pain syndrome; E86.0 Dehydration; E11.9 Type 2 diabetes mellitus without complications; Z88.5 Allergy status to narcotic agent; Z87.891 Personal history of nicotine dependence; R62.7 Adult failure to thrive; M54.9 Dorsalgia, unspecified; E86.1 Hypovolemia; D64.9 Anemia, unspecified; D72.829 Elevated white blood cell count, unspecified; K52.9 Noninfective gastroenteritis and colitis, unspecified; R63.6 Underweight; Z68.27 Body mass index [BMI] 27.0-27.9, adult
CPT/HCPCS: 36415; 51701; 70450; 71045; 74018; 74177; 74250; 80048; 80053; 81003; 82550; 83605; 83690; 83735; 84100; 84484; 85007; 85025; 85027; 87040; 87086; 87804; 93005; 93010; 94640; 96361; 96365; 96366; 96367; C9113; J0780; J1200; J1650; J1885; J2405; J2543; J3475; J3480; J3490; J7042; J7050; J7120; J7620; Q9963; Q9967; S0028